=== PATIENT | male | born 1985 | race Caucasian/White ===

== ENCOUNTER 2017-04-05 19:15 | Inpatient (IN) | payer OTHER ==
[2017-04-05 20:12] VITALS: BMI 29.2
--- NOTE | 2017-04-05 21:38 | HP ---
CIWA Score - CIWA Score Nausea/Vomitin-Mild Nausea/No Vomiting Muscle Tremors: 4-Moderate,w/Arms Extend Anxiety: 4-Mod. Anxious/Guarded Agitation: 4-Moderately Restless Paroxysmal Sweats: 1-Minimal Palms Moist Orientation: 0-Oriented Tacttile Disturbances: 0-None Auditory Disturbances: 0-None Visual Disturbances: 0-None Headache: 0-None Present CIWA-Ar Total Score: 14 Admission ROS S - HPI Chief Complaint: withdrawal sx Allergies/Adverse Reactions: Allergies Allergy/AdvReac Type Severity Reaction Status Date / Time No Known Allergies Allergy Verified 08/08/14 14:17 History of Present Illness: 31 years old male with long history of xanax nicotine cocaine dependence methadone 60 mg po daily has depression and anxiety is admitted to detox Exam Limitations: No Limitations - Ebola screening Have you traveled outside of the country in the last 21 days: No Have you had contact with anyone from an Ebola affected area: No Have you been sick,other than usual withdrawal symptoms: No Do you have a fever: No - Review of Systems Constitutional: Changes in sleep, Weight Stable EENT: reports: No Symptoms Reported Respiratory: reports: No Symptoms reported Cardiac: reports: No Symptoms Reported GI: reports: Nausea, Poor Fluid Intake, Abdominal cramping : reports: No Symptoms Reported Musculoskeletal: reports: No Symptoms Reported Integumentary: reports: No Symptoms Reported Neuro: reports: Seizure (01/2017 xanax withdrawal related), Tremors Endocrine: reports: No Symptoms Reported Hematology: reports: No Symptoms Reported Psychiatric: reports: Judgement Intact, Orientated x3, Anxious, Depressed Other Systems: Reviewed and Negative Patient History - Patient Medical History Hx Anemia: No Hx Asthma: No Hx Chronic Obstructive Pulmonary Disease (COPD): No Hx Cancer: No Hx Cardiac Disorders: Yes (COCAINE RELATED SC 1 MONTH AGO) Hx Congestive Heart Failure: No Hx Hypertension: No Hx Hypercholesterolemia: No Hx Pacemaker: No HX Cerebrovascular Accident: No Hx Seizures: Yes (01/2017) Hx Dementia: No Hx Diabetes: No Hx Gastrointestinal Disorders: No Hx Liver Disease: No Hx Genitourinary Disorders: No Hx Sexually Transmitted Disorders: No Hx Renal Disease (ESRD): No Hx Thyroid Disease: No Hx Human Immunodeficiency Virus (HIV): No Hx Hepatitis C: No Hx Depression: Yes Hx Suicide Attempt: No Hx Bipolar Disorder: No Hx Schizophrenia: No - Patient Surgical History Past Surgical History: No Hx Neurologic Surgery: No Hx Cataract Extraction: No Hx Cardiac Surgery: No Hx Lung Surgery: No Hx Breast Surgery: No Hx Breast Biopsy: No Hx Abdominal Surgery: No Hx Appendectomy: No Hx Cholecystectomy: No Hx Genitourinary Surgery: No Hx Orthopedic Surgery: No - PPD History Previous Implant?: Yes Documented Results: Negative w/proof Implanted On Prior [facility] Admission?: Yes Date: 08/10/14 PPD to be Administered?: Yes - Smoking Cessation Smoking history: Current every day smoker Have you smoked in the past 12 months: No Aproximately how many cigarettes per day: 20 Cigars Per Day: 0 Hx Chewing Tobacco Use: No Initiated information on smoking cessation: Yes 'Breaking Loose' booklet given: 04/05/17 - Substance & Tx. History Hx Alcohol Use: No Hx Substance Use: Yes Substance Use Type: Cocaine, Heroin, Tranquilizers Hx Substance Use Treatment: Yes (12/2016 [facility]) - Substances Abused Alprazolam (Xanax) Route: Oral Frequency: Daily Amount used: 20 mg Age of first use: 20 Date of Last Use: 04/04/17 Benzodiazepine (Klonopin) Route: Oral Frequency: 1-3 times last 30 days Amount used: 30 mg Age of first use: 17 Date of Last Use: 04/02/17 Family Disease History - Family Disease History Family History: Denies Admission Physical Exam S - Vital Signs Vital Signs: Vital Signs - 24 hr 04/05/17 20:09 Temperature 98.0 F Pulse Rate 78 Respiratory 18 Rate Blood Pressure 117/70 - Physical General Appearance: Yes: Nourished, Appropriately Dressed, Mild Distress, Tremorous, Irritable, Sweating, Anxious HEENTM: Yes: Hearing grossly Normal, Normal ENT Inspection, Normocephalic, Normal Voice Respiratory: Yes: Chest Non-Tender, Lungs Clear, Normal Breath Sounds, No Respiratory Distress, No Accessory Muscle Use Neck: Yes: Supple, Trachea in good position Breast: Yes: Breasts Symetrical Cardiology: Yes: Regular Rhythm, Regular Rate, S1, S2 Abdominal: Yes: Non Tender, Soft, Decreased BS Genitourinary: Yes: Within Normal Limits Back: Yes: Normal Inspection Musculoskeletal: Yes: full range of Motion, Gait Steady Extremities: Yes: Normal Inspection, Normal Range of Motion, Non-Tender, Tremors 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: Fully Oriented, Alert, Motor Strength 5/5, Normal Response, Depressed Affect Integumentary: Yes: Warm Lymphatic: Yes: Within Normal Limits - Diagnostic (1) Alcohol dependence with uncomplicated withdrawal Current Visit: Yes Status: Acute (2) Methadone maintenance therapy patient Current Visit: Yes Status: Chronic Comment: 60 mg po daily verification pending (3) Nicotine dependence Current Visit: Yes Status: Acute Qualifiers: Nicotine product type: cigarettes Substance use status: in withdrawal Qualified Code(s): F17.213 - Nicotine dependence, cigarettes, with withdrawal (4) Atypical toothache Current Visit: Yes Status: Acute Comment: augmentin bid x 6 days (5) Prophylactic measure Current Visit: Yes Status: Acute Comment: unprotected sex truvada po od x 27 days isentress bid x 27 days Cleared for Admission [facility] - Detox or Rehab [facility] Level of Care: Medically Managed Detox Regimen/Protocol: Valium [facility] Breath Alcohol Content Breath Alcohol Content: 0 Urine Drug Screen - Results Drug Screen Negative: No Urine Drug Screen Results: CAROLYN-Cocaine, OPI-Opiates, BZO-Benzodiazepines, MTD- Methadone
[2017-04-05] MEDS ORDERED: guaiFENesin/D-METHORPHAN HB 10 ML UNIT-DOSE CUPS PO PRN (21:48)
[2017-04-05] MEDS ORDERED: MAG HYDROX/AL HYDROX/SIMETH 30 ML UNIT-DOSE CUP PO PRN (21:48)
[2017-04-05] MEDS ORDERED: P-EPHED 60MG/TRIPROLIDI 2.5MG TABLET PO PRN (21:48)
[2017-04-05] MEDS ORDERED: IBUPROFEN 400 MG TABLET (FP) PO PRN (21:48)
[2017-04-05] MEDS ORDERED: MAGNESIUM CITRATE 300 ML BOTTLE PO PRN (21:48)
[2017-04-05] MEDS ORDERED: diazePAM 5 MG TABLET PO ONE (21:48)
[2017-04-05] MEDS ORDERED: MENTHOL/PHENOL 1 EACH UD MM PRN (21:48)
[2017-04-05] MEDS ORDERED: ACETAMINOPHEN 325 MG TABLET (FP) PO PRN (21:48)
[2017-04-05] MEDS ORDERED: LOPERAMIDE HCL 2 MG CAPSULE PO PRN (21:48)
[2017-04-05] MEDS ORDERED: MAGNESIUM HYDROX 2400MG/30ML ORAL SUSPENSION 30 ML CUP PO PRN (21:48)
[2017-04-05] MEDS ORDERED: BACLOFEN 10 MG TABLET (FP) PO PRN (21:57)
[2017-04-06] MEDS: diazePAM 5 MG TABLET PO SCH ×4 (01:12→22:25)
[2017-04-06] MEDS: diazePAM 5 MG TABLET PO PRN ×4 (01:21→20:36)
[2017-04-06] MEDS: NICOTINE POLACRILEX 4 MG GUM BC PRN ×6 (01:21→21:43)
[2017-04-06] MEDS: THIAMINE HCL 100 MG TABLET (FP) PO SCH ×2 (01:30→22:25)
[2017-04-06] MEDS ORDERED: METHADONE HCL 10 MG TABLET PO SCH (08:45)
[2017-04-06] MEDS ORDERED: METHADONE HCL 10 MG TABLET ONE (09:26)
[2017-04-06] MEDS ORDERED: METHADONE HCL 40 MG DISPERSABLE TABLET ONE (09:26)
[2017-04-06] MEDS: METHADONE 40 MG, METHADONE 20 MG PO SCH (09:27)
[2017-04-06] MEDS: ESCITALOPRAM OXALATE 10 MG TABLET (FP) PO SCH ×2 (10:10→10:29)
[2017-04-06] MEDS: PRENATAL VITAMINS W/ FOLIC ACID TABLET (FP) PO SCH (10:10)
[2017-04-06] MEDS: PATIENT'S OWN MEDICATION (NON-FORMULARY) (Amoxicillin/Potassium Clav [Augmentin 875-125 Ta PO SCH ×2 (10:10→22:25)
[2017-04-06] MEDS: NICOTINE 21 MG/24 HOURS TOPICAL PATCH TD SCH (10:11)
[2017-04-06] MEDS: PATIENT'S OWN MEDICATION (NON-FORMULARY) (Emtricitabine/Tenofovir (Tdf) [Truvada 200 Mg-30 PO SCH (10:11)
[2017-04-06 10:20] LABS: MCH 30.1 pg (25.7-33.7); MCHC 33.5 g/dl (32.0-35.9); MEAN CELL VOLUME 89.9 fl (80-96); MEAN PLT VOLUME 10.4 fl (7.5-11.1); PLATELET COUNT 119 K/MM3 (134-434); RDW 12.3 % (11.9-15.9); WHITE BLOOD COUNT 2.7 K/mm3 (4.0-10.0)
[2017-04-06 11:10] LABS: ALBUMIN 3.3 g/dl (3.4-5.0); ALK PHOS 61 U/L (45-117); ANION GAP 6 (8-16); BILIRUBIN,TOTAL 0.2 mg/dL (0.2-1.0); CO2 30 mmol/L (21-32); CREATININE 1.1 mg/dL (0.7-1.3); GLUCOSE,RANDOM 97 mg/dL (74-106); SGOT/AST 19 U/L (15-37); SGPT/ALT 29 U/L (12-78); TOT PROT 6.1 g/dl (6.4-8.2)
--- NOTE | 2017-04-06 12:38 | EKG ---
Test Reason : Blood Pressure : / mmHG Vent. Rate : 057 BPM Atrial Rate : 057 BPM P-R Int : 152 ms QRS Dur : 084 ms QT Int : 464 ms P-R-T Axes : 060 016 022 degrees QTc Int : 451 ms SINUS BRADYCARDIA OTHERWISE NORMAL ECG NO PREVIOUS ECGS AVAILABLE Confirmed by GUILHERME MENDES MD ([id number]) on 04/06/2017 12:38:07 PM Referred By: Confirmed By:GUILHERME MENDES MD
--- NOTE | 2017-04-06 13:20 | CONSULT ---
[facility] Psychiatric Consult - Data Date of interview: 04/06/17 Admission source: [facility] Identifying data: This is 31 years old male with history of PTSD, WITH no psychiatric hospitalization history intoxicated with: Alcohol, Methadone and Nicotine Substance Abuse History: - Smoking Cessation. Smoking history: Current every day smoker. Have you smoked in the past 12 months: No. Aproximately how many cigarettes per day: 20. Cigars Per Day: 0. Hx Chewing Tobacco Use: No. Initiated information on smoking cessation: Yes. 'Breaking Loose' booklet given : 04/05/17. - Substance & Tx. History. Hx Alcohol Use: No. Hx Substance Use: Yes. Substance Use Type: Cocaine, Heroin, Tranquilizers. Hx Substance Use Treatment: Yes (12/2016 [facility]). - Substances Abused. Alprazolam (Xanax). Route: Oral. Frequency: Daily. Amount used: 20 mg. Age of first use: 20. Date of Last Use: 04/04/17. Benzodiazepine (Klonopin). Route: Oral. Frequency: 1-3 times last 30 days. Amount used: 30 mg. Age of first use: 17. Date of Last Use: Medical History: Denies significant medical problem Psychiatric History: Patient reports history of depression and anxiety, PTSD, reports taking prior to admission: Seroquel 150mg po qhs. Lexapro 10mg poqd Physical/Sexual Abuse/Trauma History: Denies Additional Comment: Seroquel 150mg po qhs. Lexapro 10mg poqd Mental Status Exam - Mental Status Exam Alert and Oriented to: Person Cognitive Function: Fair Patient Appearance: Unkempt Mood: Sad Affect: Flat Patient Behavior: Sedated Speech Pattern: Delayed Voice Loudness: Mildly Soft/Quiet Thought Process: Circumstantial Thought Disorder: Being Controlled Hallucinations: Denies Suicidal Ideation: Denies Homicidal Ideation: Denies Insight/Judgement: Fair Sleep: Difficulty falling asleep Appetite: Fair Muscle strength/Tone: Moderate Hypotonicity Gait/Station: Other Additional Comments: Seroquel 150mg po qhs. Lexapro 10mg poqd Psychiatric Findings - Problem List ([place] 1, 2,3) (1) Alcohol dependence with uncomplicated withdrawal Current Visit: Yes Status: Acute (2) Nicotine dependence Current Visit: Yes Status: Acute Qualifiers: Nicotine product type: cigarettes Substance use status: in withdrawal Qualified Code(s): F17.213 - Nicotine dependence, cigarettes, with withdrawal (3) Methadone maintenance therapy patient Current Visit: Yes Status: Chronic Comment: 60 mg po daily verification pending (4) Alcohol dependence Current Visit: No Status: Acute (5) Mood disorder Current Visit: No Status: Acute (6) Opioid dependence Current Visit: No Status: Acute (7) PTSD (post-traumatic stress disorder) Current Visit: No Status: Acute - Initial Treatment Plan Initial Treatment Plan: Seroquel 150mg po qhs. Lexapro 10mg poqd
--- NOTE | 2017-04-06 16:29 | PN ---
S CIWA - CIWA Score Nausea/Vomitin-No Nausea/No Vomiting Muscle Tremors: 4-Moderate,w/Arms Extend Anxiety: 5 Agitation: 4-Moderately Restless Paroxysmal Sweats: 3 Orientation: 0-Oriented Tacttile Disturbances: 2-Mild Itch/Numbness/Burn Auditory Disturbances: 0-None Visual Disturbances: 1-Very Mild Sensitivity Headache: 2-Mild CIWA-Ar Total Score: 21 [facility] Progress Note (SOAP) Subjective: THIS NOTE WRITTEN TO PERTAIN TO DAILY AM ROUNDS ASSESSMENT: Tremors, Anxious, H/A, Body Aches, Sweating, Fatigue. Objective: PT. A & O X 3, OBSERVED AMBULATING ON UNIT. NO ACUTE DISTRESS. 04/06/17 16:25 Vital Signs Temperature 95.7 F L 04/06/17 15:10 Pulse Rate 101 H 04/06/17 15:10 Respiratory Rate 20 04/06/17 15:10 Blood Pressure 145/78 04/06/17 15:10 O2 Sat by Pulse Oximetry (%) Laboratory Tests 04/06/17 04/06/17 04/06/17 04:00 04:00 04:00 WBC 2.7 L D RBC 4.61 Hgb 13.9 Hct 41.4 MCV 89.9 MCH 30.1 MCHC 33.5 RDW 12.3 Plt Count 119 L MPV 10.4 Sodium 141 Potassium 3.8 Chloride 105 Carbon Dioxide 30 Anion Gap 6 L BUN 21 H D Creatinine 1.1 D Creat Clearance w eGFR > 60 Random Glucose 97 Calcium 8.0 L Total Bilirubin 0.2 D AST 19 D ALT 29 D Alkaline Phosphatase 61 Total Protein 6.1 L Albumin 3.3 L RPR Titer Nonreactive LABS NOTED. UA RESULTS PENDING. 04/06/17 16:28 Assessment: 04/06/17 16:26 WITHDRAWAL SYMPTOMS. LEUKONPENIA. 04/06/17 16:28 Plan: CONTINUE DETOX. INCREASE DAILY PO FLUID INTAKE. REPEAT CBC ON 04/08/2017 FOR LOW WBC LEVEL ON ADMISSION.
--- NOTE | 2017-04-06 16:40 | PN ---
[facility] Progress Note Note: Received report that Patient approached [facility] (ambulating on his own) , stating that he fell in his room near the side of his bed. When interviewing patient, he denies LOC after the fall, but was unable to give clear description of how he fell and also of whether he fell against the floor or the wall near his bed. Patient reports that he hit his head and bit his tongue during fall. 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 [place]. Small erythematous area not on top of patient's head in scalp, near anterior hairline (right side). No swelling, bleeding or unusual discharge noted at affected site. At time of interview, patient reports that bleeding on tongue has since ceased. Tip of tongue noted to be erythematous; however, no bleeding noted at site. No other wounds noted on patient's head. Patient initially reports H/A " in the middle of his head." Patient able to ambulate unassisted. VS: BP: 145/78 ; P: 101; T: 95.7; RR: 20. [facility] Fall Protocol # 1 Implemented. Order put in for patient to go to [facility] ER for CT Scan of Head and for further evaluation of head. 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 Patient Signed Refusal Form, noting that his H/A has since resolved. Patient advised to gargle Warm water with salt for wound on tongue. Will Continue to Monitor. Guy Man NP
[2017-04-06] MEDS: PATIENT'S OWN MEDICATION (NON-FORMULARY) (Raltegravir [Isentress] 400 MG) PO SCH (22:26)
[2017-04-07] MEDS: diazePAM 5 MG TABLET PO PRN ×5 (01:38→20:56)
[2017-04-07] MEDS: NICOTINE POLACRILEX 4 MG GUM BC PRN ×5 (01:41→20:58)
[2017-04-07] MEDS ORDERED: METHADONE HCL 10 MG TABLET ONE (03:30)
[2017-04-07] MEDS ORDERED: METHADONE HCL 40 MG DISPERSABLE TABLET ONE (03:31)
[2017-04-07] MEDS: METHADONE 40 MG, METHADONE 20 MG PO SCH (06:03)
[2017-04-07] MEDS: PATIENT'S OWN MEDICATION (NON-FORMULARY) (Raltegravir [Isentress] 400 MG) PO SCH ×2 (10:23→22:25)
[2017-04-07] MEDS: PATIENT'S OWN MEDICATION (NON-FORMULARY) (Emtricitabine/Tenofovir (Tdf) [Truvada 200 Mg-30 PO SCH (10:23)
[2017-04-07] MEDS: diazePAM 5 MG TABLET PO SCH ×2 (10:24→22:23)
[2017-04-07] MEDS: ESCITALOPRAM OXALATE 10 MG TABLET (FP) PO SCH ×2 (10:24→10:28)
[2017-04-07] MEDS: PATIENT'S OWN MEDICATION (NON-FORMULARY) (Amoxicillin/Potassium Clav [Augmentin 875-125 Ta PO SCH ×2 (10:24→22:23)
[2017-04-07] MEDS: PRENATAL VITAMINS W/ FOLIC ACID TABLET (FP) PO SCH (10:24)
[2017-04-07] MEDS: NICOTINE 21 MG/24 HOURS TOPICAL PATCH TD SCH (10:25)
--- NOTE | 2017-04-07 15:02 | PN ---
S CIWA - CIWA Score Nausea/Vomitin Muscle Tremors: 3 Anxiety: 5 Agitation: 3 Paroxysmal Sweats: 3 Orientation: 0-Oriented Tacttile Disturbances: 2-Mild Itch/Numbness/Burn Auditory Disturbances: 0-None Visual Disturbances: 0-None Headache: 0-None Present CIWA-Ar Total Score: 19 [facility] Progress Note (SOAP) Subjective: Anxious, Body Aches, Sweating, Nausea, Tremors. Objective: PT. A & O X 3, OBSERVED AMBULATING ON UNIT. NO ACUTE DISTRESS. 04/07/17 15:00 Vital Signs Temperature 96.7 F L 04/07/17 13:44 Pulse Rate 56 L 04/07/17 13:44 Respiratory Rate 17 04/07/17 13:44 Blood Pressure 118/73 04/07/17 13:44 O2 Sat by Pulse Oximetry (%) Laboratory Tests 04/06/17 04/06/17 04/06/17 04:00 04:00 04:00 WBC 2.7 L D RBC 4.61 Hgb 13.9 Hct 41.4 MCV 89.9 MCH 30.1 MCHC 33.5 RDW 12.3 Plt Count 119 L MPV 10.4 Sodium 141 Potassium 3.8 Chloride 105 Carbon Dioxide 30 Anion Gap 6 L BUN 21 H D Creatinine 1.1 D Creat Clearance w eGFR > 60 Random Glucose 97 Calcium 8.0 L Total Bilirubin 0.2 D AST 19 D ALT 29 D Alkaline Phosphatase 61 Total Protein 6.1 L Albumin 3.3 L RPR Titer Nonreactive LABS NOTED. UA RESULTS PENDING. 04/07/17 15:02 Assessment: 04/07/17 15:01 WITHDRAWAL SYMPTOMS. Plan: CONTINUE DETOX. INCREASE DAILY PO FLUID INTAKE.
[2017-04-07] MEDS: THIAMINE HCL 100 MG TABLET (FP) PO SCH (22:29)
[2017-04-08] MEDS: diazePAM 5 MG TABLET PO PRN ×4 (00:56→17:31)
[2017-04-08] MEDS ORDERED: METHADONE HCL 10 MG TABLET ONE (04:31)
[2017-04-08] MEDS ORDERED: METHADONE HCL 40 MG DISPERSABLE TABLET ONE (04:32)
[2017-04-08] MEDS: METHADONE 40 MG, METHADONE 20 MG PO SCH (05:20)
[2017-04-08] MEDS: NICOTINE POLACRILEX 4 MG GUM BC PRN ×4 (05:23→22:12)
[2017-04-08] MEDS: PATIENT'S OWN MEDICATION (NON-FORMULARY) (Emtricitabine/Tenofovir (Tdf) [Truvada 200 Mg-30 PO SCH (10:12)
[2017-04-08] MEDS: ESCITALOPRAM OXALATE 10 MG TABLET (FP) PO SCH (10:12)
[2017-04-08] MEDS: PATIENT'S OWN MEDICATION (NON-FORMULARY) (Amoxicillin/Potassium Clav [Augmentin 875-125 Ta PO SCH ×2 (10:12→22:11)
[2017-04-08] MEDS: PRENATAL VITAMINS W/ FOLIC ACID TABLET (FP) PO SCH (10:13)
[2017-04-08] MEDS: diazePAM 5 MG TABLET PO SCH ×2 (10:13→22:11)
[2017-04-08] MEDS: PATIENT'S OWN MEDICATION (NON-FORMULARY) (Raltegravir [Isentress] 400 MG) PO SCH ×2 (10:13→22:11)
[2017-04-08 10:33] LABS: URINE APPEARANCE CLEAR; URINE BILIRUBIN NEGATIVE (NEGATIVE); URINE BLOOD NEGATIVE (NEGATIVE); URINE COLOR STRAW; URINE GLUCOSE (UA) NEGATIVE (NEGATIVE); URINE KETONE NEGATIVE (NEGATIVE); URINE NITRITE NEGATIVE (NEGATIVE); URINE PROTEIN NEGATIVE (NEGATIVE); URINE UROBILINOGEN NEGATIVE mg/dL (0.2-1.0)
[2017-04-08] MEDS: NICOTINE 21 MG/24 HOURS TOPICAL PATCH TD SCH (11:15)
--- NOTE | 2017-04-08 13:24 | PN ---
[facility] Progress Note (SOAP) Subjective: Tremors, Anxious, Body Aches. Objective: PT. A & O X 3, OBSERVED AMBULATING ON UNIT. NO ACUTE DISTRESS. 04/08/17 13:22 Vital Signs Temperature 96.5 F L 04/08/17 09:49 Pulse Rate 56 L 04/08/17 09:49 Respiratory Rate 18 04/08/17 09:49 Blood Pressure 109/64 04/08/17 09:49 O2 Sat by Pulse Oximetry (%) Laboratory Tests 04/06/17 04/06/17 04/06/17 04:00 04:00 04:00 WBC 2.7 L D RBC 4.61 Hgb 13.9 Hct 41.4 MCV 89.9 MCH 30.1 MCHC 33.5 RDW 12.3 Plt Count 119 L MPV 10.4 Sodium 141 Potassium 3.8 Chloride 105 Carbon Dioxide 30 Anion Gap 6 L BUN 21 H D Creatinine 1.1 D Creat Clearance w eGFR > 60 Random Glucose 97 Calcium 8.0 L Total Bilirubin 0.2 D AST 19 D ALT 29 D Alkaline Phosphatase 61 Total Protein 6.1 L Albumin 3.3 L Urine Color Urine Appearance Urine pH Ur Specific [place] Urine Protein Urine Glucose (UA) Urine Ketones Urine Blood Urine Nitrite Urine Bilirubin Urine Urobilinogen RPR Titer Nonreactive 04/08/17 07:40 WBC RBC Hgb Hct MCV MCH MCHC RDW Plt Count MPV Sodium Potassium Chloride Carbon Dioxide Anion Gap BUN Creatinine Creat Clearance w eGFR Random Glucose Calcium Total Bilirubin AST ALT Alkaline Phosphatase Total Protein Albumin Urine Color Straw Urine Appearance Clear Urine pH 7.0 Ur Specific [place] 1.011 Urine Protein Negative Urine Glucose (UA) Negative Urine Ketones Negative Urine Blood Negative Urine Nitrite Negative Urine Bilirubin Negative Urine Urobilinogen Negative RPR Titer LABS NOTED. Assessment: 04/08/17 13:22 WITHDRAWAL SYMPTOMS. Plan: CONTINUE DETOX. INCREASE DAILY PO FLUID INTAKE.
[2017-04-08 16:56] LABS: URINE LEUK ESTERASE Negative (NEGATIVE)
[2017-04-08] MEDS: THIAMINE HCL 100 MG TABLET (FP) PO SCH (22:12)
[2017-04-09] MEDS ORDERED: METHADONE HCL 10 MG TABLET ONE (03:30)
[2017-04-09] MEDS ORDERED: METHADONE HCL 40 MG DISPERSABLE TABLET ONE (03:30)
[2017-04-09] MEDS: METHADONE 40 MG, METHADONE 20 MG PO SCH (05:40)
[2017-04-09 06:47] VITALS: BP 109/71; PULSE 56; TEMP 98.2
[2017-04-09] MEDS ORDERED: diazePAM 5 MG TABLET PO SCH (10:00)
--- NOTE | 2017-04-09 13:29 | DS ---
[facility] Detox Discharge Summary Admission Date: 04/05/17 Discharge Date: 04/09/17 - History Present History: Cocaine Dependence, Opioid Dependence, Sedative Dependence, MMTP Additional Comments: Patient reported having withdrawal sxs of hot flashes, sweat, anxious and requesting valium stating he received his last dose of valium 5mg last night. Personalization Specialist offered vistaril 50mg PO PRN but patient refused stating that he will just continue using drugs when he gets on the street or will get some benadryl. Patient was angry and agitated and refused to listen to ad writer. Pertinent Past History: Acute NC secondary to cocaine dependence Seizure disorder - Physical Exam Results Vital Signs: Vital Signs Temperature 98.2 F 04/09/17 06:46 Pulse Rate 56 L 04/09/17 06:46 Respiratory Rate 18 04/09/17 06:46 Blood Pressure 109/71 04/09/17 06:46 O2 Sat by Pulse Oximetry (%) Pertinent Admission Physical Exam Findings: Withdrawal symptoms Laboratory Tests 04/06/17 04/06/17 04/06/17 04:00 04:00 04:00 WBC 2.7 L D RBC 4.61 Hgb 13.9 Hct 41.4 MCV 89.9 MCH 30.1 MCHC 33.5 RDW 12.3 Plt Count 119 L MPV 10.4 Sodium 141 Potassium 3.8 Chloride 105 Carbon Dioxide 30 Anion Gap 6 L BUN 21 H D Creatinine 1.1 D Creat Clearance w eGFR > 60 Random Glucose 97 Calcium 8.0 L Total Bilirubin 0.2 D AST 19 D ALT 29 D Alkaline Phosphatase 61 Total Protein 6.1 L Albumin 3.3 L Urine Color Urine Appearance Urine pH Ur Specific [place] Urine Protein Urine Glucose (UA) Urine Ketones Urine Blood Urine Nitrite Urine Bilirubin Urine Urobilinogen Ur Leukocyte Esterase RPR Titer Nonreactive 04/08/17 07:40 WBC RBC Hgb Hct MCV MCH MCHC RDW Plt Count MPV Sodium Potassium Chloride Carbon Dioxide Anion Gap BUN Creatinine Creat Clearance w eGFR Random Glucose Calcium Total Bilirubin AST ALT Alkaline Phosphatase Total Protein Albumin Urine Color Straw Urine Appearance Clear Urine pH 7.0 Ur Specific [place] 1.011 Urine Protein Negative Urine Glucose (UA) Negative Urine Ketones Negative Urine Blood Negative Urine Nitrite Negative Urine Bilirubin Negative Urine Urobilinogen Negative Ur Leukocyte Esterase Negative RPR Titer Labs noted: bun 21 (encouraged to drink lots of water) - Medication Discharge Medications: Ambulatory Orders Amoxicillin/Potassium Clav [Augmentin 875-125 Tablet] 1 each PO BID 04/05/17 Emtricitabine/Tenofovir (Tdf) [Truvada 200 mg-300 mg Tablet] 1 each PO DAILY Raltegravir [Isentress -] 400 mg PO BID 04/05/17 Escitalopram Oxalate [Lexapro -] 10 mg PO DAILY #30 tablet 04/06/17 Quetiapine Fumarate "Xr" [Seroquel XR] 150 mg PO HS@1999 #30 tablet 04/06/17 - Diagnosis (1) Nicotine dependence Status: Chronic Qualifiers: Nicotine product type: cigarettes Substance use status: in withdrawal Qualified Code(s): F17.213 - Nicotine dependence, cigarettes, with withdrawal (2) Methadone maintenance therapy patient Status: Chronic (3) Benzodiazepine dependence Status: Acute (4) Cocaine dependence Status: Chronic (5) Seizure Status: Chronic (6) Depression Status: Chronic (7) Acute NC Status: Acute (8) Opioid dependence Status: Chronic - AMA Did Patient Leave Against Medical Advice: No (F/U with PCP in 1-2 weeks)
== END 2017-04-09 09:20 | disposition home or self-care (01) | DRG 773 ==
LOC: YASAS 19:15 → Y3N 23:11
PROVIDERS: ADMIT Internal Medicine; ATTEND Internal Medicine
PROC: HZ2ZZZZ Detoxification Services for Substance Abuse Treatment (ICD-10-PCS; principal; 2017-04-05)
DX: F11.20 Opioid dependence, uncomplicated (principal); F13.20 Sedative, hypnotic or anxiolytic dependence, uncomplicated; F10.230 Alcohol dependence with withdrawal, uncomplicated; F14.20 Cocaine dependence, uncomplicated; F17.210 Nicotine dependence, cigarettes, uncomplicated; F32.9 Major depressive disorder, single episode, unspecified; F41.9 Anxiety disorder, unspecified; F39 Unspecified mood [affective] disorder; I21.9 Acute myocardial infarction, unspecified; Z77.21 Contact with and (suspected) exposure to potentially hazardous body fluids; Z59.0 Homelessness
CPT/HCPCS: 36415; 80053; 81003; 85027; 86593; 93005; 93010; J0475

== ENCOUNTER 2017-11-13 09:35 | Inpatient (IN) | payer OTHER ==
[2017-11-13 10:55] VITALS: BMI 30.1
--- NOTE | 2017-11-13 13:38 | HP ---
CIWA Score - CIWA Score Nausea/Vomitin-Mild Nausea/No Vomiting Muscle Tremors: 4-Moderate,w/Arms Extend Anxiety: 4-Mod. Anxious/Guarded Agitation: 4-Moderately Restless Paroxysmal Sweats: 1-Minimal Palms Moist Orientation: 0-Oriented Tacttile Disturbances: 1-Very Mild Itch/Numbness Auditory Disturbances: 0-None Visual Disturbances: 0-None Headache: 0-None Present CIWA-Ar Total Score: 15 Admission ROS S - HPI Chief Complaint: benzo withdrawal sx Allergies/Adverse Reactions: Allergies Allergy/AdvReac Type Severity Reaction Status Date / Time mushroom Allergy Severe Difficulty Verified 11/13/17 12:39 Breathing No Known Drug Allergies Allergy Verified 11/13/17 12:39 History of Present Illness: 32 years old male with long history of banzo and nicotine dependence has anxiety is admitted to detox Exam Limitations: No Limitations - Ebola screening Have you traveled outside of the country in the last 21 days: No (N) Have you had contact with anyone from an Ebola affected area: No Have you been sick,other than usual withdrawal symptoms: No Do you have a fever: No - Review of Systems Constitutional: Changes in sleep, Weight Stable EENT: reports: No Symptoms Reported Respiratory: reports: No Symptoms reported Cardiac: reports: No Symptoms Reported GI: reports: Nausea, Poor Fluid Intake, Abdominal cramping : reports: No Symptoms Reported Musculoskeletal: reports: No Symptoms Reported Integumentary: reports: Change in Color (both upper arms iv heroin) Neuro: reports: Seizure (seizure "few months ago" benzo withdrawal related), Tremors Endocrine: reports: No Symptoms Reported Hematology: reports: No Symptoms Reported Psychiatric: reports: Judgement Intact, Orientated x3, Anxious, Depressed Other Systems: Reviewed and Negative Patient History - Patient Medical History Hx Anemia: No Hx Asthma: No Hx Chronic Obstructive Pulmonary Disease (COPD): No Hx Cancer: No Hx Cardiac Disorders: No Hx Congestive Heart Failure: No Hx Hypertension: No Hx Hypercholesterolemia: No Hx Pacemaker: No HX Cerebrovascular Accident: No Hx Seizures: Yes (drug related-last episode was in 08/2017) Hx Dementia: No Hx Diabetes: No Hx Gastrointestinal Disorders: No Hx Liver Disease: No Hx Genitourinary Disorders: No Hx Sexually Transmitted Disorders: No Hx Renal Disease (ESRD): No Hx Thyroid Disease: No Hx Human Immunodeficiency Virus (HIV): No Hx Hepatitis C: No Hx Depression: Yes Hx Suicide Attempt: No Hx Bipolar Disorder: No Hx Schizophrenia: No - Patient Surgical History Past Surgical History: No Hx Neurologic Surgery: No Hx Cataract Extraction: No Hx Cardiac Surgery: No Hx Lung Surgery: No Hx Breast Surgery: No Hx Breast Biopsy: No Hx Abdominal Surgery: No Hx Appendectomy: No Hx Cholecystectomy: No Hx Genitourinary Surgery: No Hx Orthopedic Surgery: No - PPD History Previous Implant?: Yes Documented Results: Negative w/proof Implanted On Prior R Admission?: Yes Date: 07/13/17 Results: 0 mm PPD to be Administered?: No - Smoking Cessation Smoking history: Current every day smoker Have you smoked in the past 12 months: Yes Aproximately how many cigarettes per day: 20 If you are a former smoker, when did you quit?: 14 MONTHS AGO. Cigars Per Day: 0 Hx Chewing Tobacco Use: No Initiated information on smoking cessation: Yes 'Breaking Loose' booklet given: 11/13/17 - Substance & Tx. History Hx Alcohol Use: Yes Hx Substance Use: Yes Substance Use Type: Alcohol, Cocaine, Heroin, Opiates, Tranquilizers Hx Substance Use Treatment: Yes (08/2017 [facility] - Substances Abused Heroin Route: Injection Frequency: Daily Amount used: 5 bags Age of first use: 20 Date of Last Use: 11/13/17 Cocaine Route: Inhalation Frequency: 1-2 times per week Amount used: $40 Age of first use: 20 Date of Last Use: 11/11/17 Xanax or Klonopin Route: Oral Frequency: Daily Amount used: 8-12 tabs. (2 mg.)/15 tabs. (2 mg.) Age of first use: 29 Date of Last Use: 11/13/17 Alcohol-beer Route: Oral Frequency: 1-2 times per week Amount used: 2-3 (12 oz.) Age of first use: 13 Date of Last Use: 11/10/17 Family Disease History - Family Disease History Family Disease History: Other: Father (alive and well), Mother (alive, and well) Other Family History: only child Admission Physical Exam BHS - Vital Signs Vital Signs: Vital Signs - 24 hr 11/13/17 10:52 Temperature 98.2 F Pulse Rate 61 Respiratory 20 Rate Blood Pressure 132/74 - Physical General Appearance: Yes: Appropriately Dressed, Mild Distress, Tremorous, Irritable, Sweating, Anxious HEENTM: Yes: Normal Voice Respiratory: Yes: Chest Non-Tender, Lungs Clear, Normal Breath Sounds, No Respiratory Distress, No Accessory Muscle Use Neck: Yes: Supple, Trachea in good position Breast: Yes: Breasts Symetrical, No Discharge Cardiology: Yes: Regular Rhythm, Regular Rate, S1, S2 Abdominal: Yes: Non Tender, Flat, Soft Genitourinary: Yes: Within Normal Limits Back: Yes: Normal Inspection Musculoskeletal: Yes: full range of Motion, Gait Steady, Back pain, Muscle Pain Extremities: Yes: Normal Inspection (arms iv heroin), Normal Range of Motion, Non-Tender, Tremors 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: Fully Oriented, Alert, Motor Strength 5/5, Normal Response, Depressed Affect Integumentary: Yes: Warm, Track Babb Lymphatic: Yes: Within Normal Limits - Diagnostic (1) Anxiety and depression Current Visit: Yes Status: Suspected (2) Nicotine dependence Current Visit: Yes Status: Acute Qualifiers: Nicotine product type: cigarettes Substance use status: in withdrawal Qualified Code(s): F17.213 - Nicotine dependence, cigarettes, with withdrawal (3) Cocaine dependence Current Visit: Yes Status: Chronic Qualifiers: Substance use status: uncomplicated Qualified Code(s): F14.20 - Cocaine dependence, uncomplicated (4) Sedative, hypnotic or anxiolytic dependence with withdrawal, uncomplicated Current Visit: Yes Status: Acute (5) Methadone maintenance therapy patient Current Visit: Yes Status: Chronic Comment: 130 mg po daily last dose verified Cleared for Admission [facility] - Detox or Rehab [facility] Level of Care: Medically Managed Detox Regimen/Protocol: Valium [facility] Breath Alcohol Content Breath Alcohol Content: 0 Urine Drug Screen - Results Drug Screen Negative: No Urine Drug Screen Results: CAROLYN-Cocaine, OPI-Opiates, BAR-Barbiturates, BZO- Benzodiazepines, MTD-Methadone
[2017-11-13] MEDS ORDERED: MAG HYDROX/AL HYDROX/SIMETH 30 ML UNIT-DOSE CUP PO PRN (13:42)
[2017-11-13] MEDS ORDERED: LOPERAMIDE HCL 2 MG CAPSULE PO PRN (13:42)
[2017-11-13] MEDS ORDERED: ACETAMINOPHEN 325 MG TABLET (FP) PO PRN (13:42)
[2017-11-13] MEDS ORDERED: P-EPHED 60MG/TRIPROLIDI 2.5MG TABLET PO PRN (13:42)
[2017-11-13] MEDS ORDERED: MENTHOL/PHENOL 1 EACH UD MM PRN (13:42)
[2017-11-13] MEDS ORDERED: IBUPROFEN 400 MG TABLET (FP) PO PRN (13:42)
[2017-11-13] MEDS ORDERED: MAGNESIUM HYDROX 2400MG/30ML ORAL SUSPENSION 30 ML CUP PO PRN (13:42)
[2017-11-13] MEDS ORDERED: MAGNESIUM CITRATE 300 ML BOTTLE PO PRN (13:42)
[2017-11-13] MEDS ORDERED: guaiFENesin/D-METHORPHAN HB 10 ML UNIT-DOSE CUPS PO PRN (13:42)
--- NOTE | 2017-11-13 14:41 | CONSULT ---
[facility] Psychiatric Consult - Data Date of interview: 11/13/17 Admission source: [facility] Identifying data: This is 32 years old male, single, unemployed, living with family, on MMTP, with no psychiatric hospitalization history, with long history of Benzo, Cocaine, Opioids, Alcohol, Nicotine and nicotine dependence has anxiety and withdrawal symptoms, seeking for detox. Substance Abuse History: Smoking Cessation. Smoking history: Current every day smoker. Have you smoked in the past 12 months: Yes. Aproximately how many cigarettes per day: 20. If you are a former smoker, when did you quit?: 14 MONTHS AGO. Cigars Per Day: 0. Hx Chewing Tobacco Use: No. Initiated information on smoking cessation: Yes. 'Breaking Loose' booklet given: . - Substance & Tx. History. Hx Alcohol Use: Yes. Hx Substance Use: Yes. Substance Use Type: Alcohol, Cocaine, Heroin, Opiates, Tranquilizers. Hx Substance Use Treatment: Yes (08/2017 [facility]). - Substances Abused. Heroin. Route: Injection. Frequency: Daily. Amount used: 5 bags. Age of first use: 20. Date of Last Use: 11/13/17. Cocaine. Route: Inhalation. Frequency: 1-2 times per week. Amount used: $40. Age of first use: 20. Date of Last Use: 11/11/17. Xanax or Klonopin. Route: Oral. Frequency: Daily. Amount used: 8-12 tabs. (2 mg.)/15 tabs. (2 mg.). Age of first use: 29. Date of Last Use: 11/13/17. Alcohol-beer. Route: Oral. Frequency: 1-2 times per week. Amount used: 2-3 (12 oz.). Age of first use: 13. Date of Last Use: 11/10/17 Medical History: MMTP 130 mg per day, History of acute [place], Seizure history, Psychiatric History: Patient reports long history of depression, denies psychiatric hospitalization history, denies suicidal, homicidal history, no0 medicatione taking prior to admission. Physical/Sexual Abuse/Trauma History: Denies Additional Comment: Observation. Detox Unit Care Protocol. Mental Status Exam - Mental Status Exam Alert and Oriented to: Place, Person Cognitive Function: Fair Patient Appearance: Unkempt Mood: Anxious Affect: Mood Congruent Patient Behavior: Cooperative Speech Pattern: Delayed Voice Loudness: Mildly Soft/Quiet Thought Process: Goal Oriented Thought Disorder: Being Controlled Hallucinations: Denies Suicidal Ideation: Denies Homicidal Ideation: Denies Insight/Judgement: Fair Sleep: Difficulty falling asleep Appetite: Weight gain Muscle strength/Tone: Normal Gait/Station: Shuffling Additional Comments: Observation. Detox Unit Care Protocol. Psychiatric Findings - Problem List ([place] 1, 2,3) (1) Nicotine dependence Current Visit: Yes Status: Acute Qualifiers: Nicotine product type: cigarettes Substance use status: in withdrawal Qualified Code(s): F17.213 - Nicotine dependence, cigarettes, with withdrawal (2) Sedative, hypnotic or anxiolytic dependence with withdrawal, uncomplicated Current Visit: Yes Status: Acute (3) Cocaine dependence Current Visit: Yes Status: Chronic Qualifiers: Substance use status: uncomplicated Qualified Code(s): F14.20 - Cocaine dependence, uncomplicated (4) Methadone maintenance therapy patient Current Visit: Yes Status: Chronic Comment: 130 mg po daily last dose verified (5) Anxiety and depression Current Visit: Yes Status: Suspected (6) Drug-induced mood disorder Current Visit: No Status: Acute (7) Opioid dependence Current Visit: No Status: Acute (8) Opioid dependence on agonist therapy Current Visit: No Status: Acute (9) Sedative hypnotic withdrawal Current Visit: No Status: Acute Qualifiers: Complication of substance-induced condition: uncomplicated Qualified Code(s ): F13.230 - Sedative, hypnotic or anxiolytic dependence with withdrawal, uncomplicated (10) PTSD (post-traumatic stress disorder) Current Visit: No Status: Chronic (11) Mood disorder Current Visit: No Status: Acute (12) History of seizure Current Visit: No Status: Chronic (13) Acute IN Current Visit: No Status: Inactive - Initial Treatment Plan Initial Treatment Plan: Observation. Detox Unit Care Protocol.
[2017-11-13] MEDS ORDERED: diazePAM 5 MG TABLET PO ONE (14:45)
[2017-11-13] MEDS ORDERED: BACITRACIN 0.9 GM PACKET TP ONE (14:45)
[2017-11-13] MEDS: BACLOFEN 10 MG TABLET (FP) PO SCH ×2 (15:24→22:18)
[2017-11-13] MEDS: NICOTINE POLACRILEX 4 MG GUM BUC PRN ×2 (15:29→22:20)
[2017-11-13 16:57] LABS: URINE APPEARANCE SLCLOUDY; URINE BILIRUBIN NEGATIVE (<2.0 mg/dL); URINE COLOR YELLOW; URINE GLUCOSE (UA) NEGATIVE (NEGATIVE); URINE KETONE NEGATIVE (NEGATIVE); URINE LEUK ESTERASE NEGATIVE (NEGATIVE); URINE NITRITE NEGATIVE (NEGATIVE); URINE PROTEIN NEGATIVE (NEGATIVE)
[2017-11-13] MEDS ORDERED: MELATONIN 5 MG TABLETS PO PRN (22:00)
--- NOTE | 2017-11-13 22:10 | EKG ---
Test Reason : Blood Pressure : / mmHG Vent. Rate : 051 BPM Atrial Rate : 051 BPM P-R Int : 156 ms QRS Dur : 086 ms QT Int : 480 ms P-R-T Axes : 061 000 009 degrees QTc Int : 442 ms SINUS BRADYCARDIA OTHERWISE NORMAL ECG WHEN COMPARED WITH ECG OF 28-AUG-2017 18:28, NO SIGNIFICANT CHANGE WAS FOUND Confirmed by JUAN A YUNG MD ([id number]) on 11/13/2017 10:10:02 PM Referred By: Riki MICHAEL Confirmed By:JUAN A YUNG MD
[2017-11-13] MEDS: THIAMINE HCL 100 MG TABLET (FP) PO SCH (22:17)
[2017-11-13] MEDS: diazePAM 5 MG TABLET PO SCH (22:18)
[2017-11-13] MEDS: diazePAM 5 MG TABLET PO PRN (22:18)
[2017-11-14] MEDS: diazePAM 5 MG TABLET PO PRN ×4 (02:58→16:45)
[2017-11-14] MEDS ORDERED: METHADONE HCL 10 MG TABLET ONE (05:25)
[2017-11-14] MEDS ORDERED: METHADONE HCL 40 MG DISPERSABLE TABLET ONE (05:25)
[2017-11-14] MEDS: METHADONE 120 MG, METHADONE 10 MG PO SCH (05:38)
[2017-11-14] MEDS: diazePAM 5 MG TABLET PO SCH ×3 (05:38→22:11)
[2017-11-14] MEDS: BACLOFEN 10 MG TABLET (FP) PO SCH ×3 (05:38→22:12)
[2017-11-14] MEDS: NICOTINE POLACRILEX 4 MG GUM BUC PRN (05:42)
[2017-11-14] MEDS ORDERED: METHADONE HCL 40 MG DISPERSABLE TABLET PO SCH ×2 (06:00→10:00)
[2017-11-14 09:52] LABS: HEMATOCRIT 41.7 % (35.4-49); MCH 30.7 pg (25.7-33.7); MCHC 33.6 g/dl (32.0-35.9); MEAN CELL VOLUME 91.2 fl (80-96); MEAN PLT VOLUME 10.1 fl (7.5-11.1); PLATELET COUNT 129 K/MM3 (134-434); RBC 4.57 M/mm3 (4.00-5.60); RDW 12.2 % (11.9-15.9); WHITE BLOOD COUNT 4.7 K/mm3 (4.0-10.0)
[2017-11-14 10:04] LABS: CHLORIDE 107 mmol/L (98-107); POTASSIUM 4.2 mmol/L (3.5-5.1); SODIUM 142 mmol/L (136-145)
[2017-11-14] MEDS: PRENATAL VITAMINS W/ FOLIC ACID TABLET (FP) PO SCH ×2 (10:10→10:12)
[2017-11-14] MEDS: NICOTINE 21 MG/24 HOURS TOPICAL PATCH TD SCH (10:11)
[2017-11-14 10:25] LABS: ALBUMIN 3.4 g/dl (3.4-5.0); ALK PHOS 69 U/L (45-117); ANION GAP 5 (8-16); BILIRUBIN,TOTAL 0.2 mg/dL (0.2-1.0); BLOOD UREA NITROGEN 18 mg/dL (7-18); CALCIUM 8.4 mg/dL (8.5-10.1); CO2 30 mmol/L (21-32); GLUCOSE,RANDOM 79 mg/dL (74-106); SGOT/AST 17 U/L (15-37); SGPT/ALT 29 U/L (12-78); TOT PROT 6.4 g/dl (6.4-8.2)
--- NOTE | 2017-11-14 11:54 | PN ---
S CIWA - CIWA Score Nausea/Vomitin Muscle Tremors: 3 Anxiety: 3 Agitation: 3 Paroxysmal Sweats: 1-Minimal Palms Moist Orientation: 0-Oriented Tacttile Disturbances: 1-Very Mild Itch/Numbness Auditory Disturbances: 1-Very Mild Visual Disturbances: 0-None Headache: 2-Mild CIWA-Ar Total Score: 17 BHS Progress Note (SOAP) Subjective: ALERT,IRRITABLE,ANXIOUS,INTERRUPTED SLEEP,TREMOR,PAIN IN THE LEFT LOWER MOLAR Objective: 11/14/17 11:51 Vital Signs Temperature 97.9 F 11/14/17 08:47 Pulse Rate 51 L 11/14/17 08:47 Respiratory Rate 18 11/14/17 08:47 Blood Pressure 106/63 11/14/17 08:47 O2 Sat by Pulse Oximetry (%) EKG SINUS BRADYCARDIA 50/MIN,PROLONG QT 480/444 NO CHEST PAIN,NO SOB,NO DIZZINESS 11/14/17 11:52 Laboratory Last Values WBC 4.7 K/mm3 (4.0-10.0) 11/14/17 07:00 RBC 4.57 M/mm3 (4.00-5.60) 11/14/17 07:00 Hgb 14.0 GM/dL (11.7-16.9) 11/14/17 07:00 Hct 41.7 % (35.4-49) 11/14/17 07:00 MCV 91.2 fl (80-96) 11/14/17 07:00 MCH 30.7 pg (25.7-33.7) 11/14/17 07:00 MCHC 33.6 g/dl (32.0-35.9) 11/14/17 07:00 RDW 12.2 % (11.9-15.9) 11/14/17 07:00 Plt Count 129 K/MM3 (134-434) L 11/14/17 07:00 MPV 10.1 fl (7.5-11.1) 11/14/17 07:00 Sodium 142 mmol/L (136-145) 11/14/17 07:00 Potassium 4.2 mmol/L (3.5-5.1) 11/14/17 07:00 Chloride 107 mmol/L (98-107) 11/14/17 07:00 Carbon Dioxide 30 mmol/L (21-32) 11/14/17 07:00 Anion Gap 5 (8-16) L 11/14/17 07:00 BUN 18 mg/dL (7-18) 11/14/17 07:00 Creatinine 1.0 mg/dL (0.7-1.3) 11/14/17 07:00 Creat Clearance w eGFR > 60 (>60) 11/14/17 07:00 Random Glucose 79 mg/dL (74-106) 11/14/17 07:00 Calcium 8.4 mg/dL (8.5-10.1) L 11/14/17 07:00 Total Bilirubin 0.2 mg/dL (0.2-1.0) 11/14/17 07:00 AST 17 U/L (15-37) 11/14/17 07:00 ALT 29 U/L (12-78) 11/14/17 07:00 Alkaline Phosphatase 69 U/L (45-117) 11/14/17 07:00 Total Protein 6.4 g/dl (6.4-8.2) 11/14/17 07:00 Albumin 3.4 g/dl (3.4-5.0) 11/14/17 07:00 Urine Color Yellow 11/13/17 14:45 Urine Appearance Slcloudy 11/13/17 14:45 Urine pH 5.0 (5.0-8.0) 11/13/17 14:45 Ur Specific [place] 1.031 (1.001-1.035) 11/13/17 14:45 Urine Protein Negative (NEGATIVE) 11/13/17 14:45 Urine Glucose (UA) Negative (NEGATIVE) 11/13/17 14:45 Urine Ketones Negative (NEGATIVE) 11/13/17 14:45 Urine Blood Negative (NEGATIVE) 11/13/17 14:45 Urine Nitrite Negative (NEGATIVE) 11/13/17 14:45 Urine Bilirubin Negative (<2.0 mg/dL) 11/13/17 14:45 Urine Urobilinogen 2.0 mg/dL (0.2-1.0) 11/13/17 14:45 Ur Leukocyte Esterase Negative (NEGATIVE) 11/13/17 14:45 HIV 1&2 Antibody Screen Negative 11/13/17 07:00 HIV P24 Antigen Negative 11/13/17 07:00 Assessment: 11/14/17 11:53 WITHDRAWAL SYMPTOM INFECTED DENTAL CAVITY LEFT LOWER MOLAR WITH GINGIVITIS Plan: CONTINUE DETOX,AMOXICILLIN 500 MGS PO TID FOR 7 DAYS
[2017-11-14] MEDS: AMOXICILLIN 500 MG CAPSULE (FP) PO SCH ×2 (14:21→22:12)
[2017-11-14] MEDS: THIAMINE HCL 100 MG TABLET (FP) PO SCH (23:18)
[2017-11-15] MEDS: diazePAM 5 MG TABLET PO PRN ×5 (01:36→20:44)
[2017-11-15] MEDS ORDERED: METHADONE HCL 40 MG DISPERSABLE TABLET ONE (04:56)
[2017-11-15] MEDS ORDERED: METHADONE HCL 10 MG TABLET ONE (04:56)
[2017-11-15] MEDS: BACLOFEN 10 MG TABLET (FP) PO SCH ×3 (05:33→23:13)
[2017-11-15] MEDS: AMOXICILLIN 500 MG CAPSULE (FP) PO SCH ×3 (05:33→22:19)
[2017-11-15] MEDS: METHADONE 120 MG, METHADONE 10 MG PO SCH (05:33)
[2017-11-15] MEDS: diazePAM 5 MG TABLET PO SCH ×2 (10:41→22:18)
[2017-11-15] MEDS: NICOTINE 21 MG/24 HOURS TOPICAL PATCH TD SCH ×2 (10:41→12:30)
[2017-11-15] MEDS: PRENATAL VITAMINS W/ FOLIC ACID TABLET (FP) PO SCH (10:43)
--- NOTE | 2017-11-15 11:16 | PN ---
S CIWA - CIWA Score Nausea/Vomitin Muscle Tremors: 3 Anxiety: 2 Agitation: 2 Paroxysmal Sweats: 1-Minimal Palms Moist Orientation: 0-Oriented Tacttile Disturbances: 1-Very Mild Itch/Numbness Auditory Disturbances: 1-Very Mild Visual Disturbances: 0-None Headache: 2-Mild CIWA-Ar Total Score: 15 BHS Progress Note (SOAP) Subjective: alert,irritable,anxious,interrupted sleep,less pain in the left molar Objective: 11/15/17 11:13 Vital Signs Temperature 96.8 F L 11/15/17 07:20 Pulse Rate 52 L 11/15/17 07:20 Respiratory Rate 20 11/15/17 07:20 Blood Pressure 120/78 11/15/17 07:20 O2 Sat by Pulse Oximetry (%) Vital Signs Temperature 96.8 F L 11/15/17 07:20 Pulse Rate 52 L 11/15/17 07:20 Respiratory Rate 20 11/15/17 07:20 Blood Pressure 120/78 11/15/17 07:20 O2 Sat by Pulse Oximetry (%) Laboratory Last Values WBC 4.7 K/mm3 (4.0-10.0) 11/14/17 07:00 RBC 4.57 M/mm3 (4.00-5.60) 11/14/17 07:00 Hgb 14.0 GM/dL (11.7-16.9) 11/14/17 07:00 Hct 41.7 % (35.4-49) 11/14/17 07:00 MCV 91.2 fl (80-96) 11/14/17 07:00 MCH 30.7 pg (25.7-33.7) 11/14/17 07:00 MCHC 33.6 g/dl (32.0-35.9) 11/14/17 07:00 RDW 12.2 % (11.9-15.9) 11/14/17 07:00 Plt Count 129 K/MM3 (134-434) L 11/14/17 07:00 MPV 10.1 fl (7.5-11.1) 11/14/17 07:00 Sodium 142 mmol/L (136-145) 11/14/17 07:00 Potassium 4.2 mmol/L (3.5-5.1) 11/14/17 07:00 Chloride 107 mmol/L (98-107) 11/14/17 07:00 Carbon Dioxide 30 mmol/L (21-32) 11/14/17 07:00 Anion Gap 5 (8-16) L 11/14/17 07:00 BUN 18 mg/dL (7-18) 11/14/17 07:00 Creatinine 1.0 mg/dL (0.7-1.3) 11/14/17 07:00 Creat Clearance w eGFR > 60 (>60) 11/14/17 07:00 Random Glucose 79 mg/dL (74-106) 11/14/17 07:00 Calcium 8.4 mg/dL (8.5-10.1) L 11/14/17 07:00 Total Bilirubin 0.2 mg/dL (0.2-1.0) 11/14/17 07:00 AST 17 U/L (15-37) 11/14/17 07:00 ALT 29 U/L (12-78) 11/14/17 07:00 Alkaline Phosphatase 69 U/L (45-117) 11/14/17 07:00 Total Protein 6.4 g/dl (6.4-8.2) 11/14/17 07:00 Albumin 3.4 g/dl (3.4-5.0) 11/14/17 07:00 Urine Color Yellow 11/13/17 14:45 Urine Appearance Slcloudy 11/13/17 14:45 Urine pH 5.0 (5.0-8.0) 11/13/17 14:45 Ur Specific [place] 1.031 (1.001-1.035) 11/13/17 14:45 Urine Protein Negative (NEGATIVE) 11/13/17 14:45 Urine Glucose (UA) Negative (NEGATIVE) 11/13/17 14:45 Urine Ketones Negative (NEGATIVE) 11/13/17 14:45 Urine Blood Negative (NEGATIVE) 11/13/17 14:45 Urine Nitrite Negative (NEGATIVE) 11/13/17 14:45 Urine Bilirubin Negative (<2.0 mg/dL) 11/13/17 14:45 Urine Urobilinogen 2.0 mg/dL (0.2-1.0) 11/13/17 14:45 Ur Leukocyte Esterase Negative (NEGATIVE) 11/13/17 14:45 RPR Titer Nonreactive (NONREACTIVE) 11/14/17 07:00 HIV 1&2 Antibody Screen Negative 11/13/17 07:00 HIV P24 Antigen Negative 11/13/17 07:00 Assessment: 11/15/17 11:15 withdrawal symptom Plan: continue detox
[2017-11-15] MEDS: NICOTINE POLACRILEX 4 MG GUM BUC PRN ×2 (15:35→20:44)
[2017-11-15] MEDS: THIAMINE HCL 100 MG TABLET (FP) PO SCH (22:19)
[2017-11-16] MEDS: diazePAM 5 MG TABLET PO PRN ×4 (00:47→13:35)
[2017-11-16] MEDS ORDERED: METHADONE HCL 40 MG DISPERSABLE TABLET ONE (03:20)
[2017-11-16] MEDS ORDERED: METHADONE HCL 10 MG TABLET ONE (03:20)
[2017-11-16] MEDS: METHADONE 120 MG, METHADONE 10 MG PO SCH (05:09)
[2017-11-16] MEDS: AMOXICILLIN 500 MG CAPSULE (FP) PO SCH ×2 (05:11→13:35)
[2017-11-16] MEDS: BACLOFEN 10 MG TABLET (FP) PO SCH ×2 (05:11→13:35)
[2017-11-16] MEDS: NICOTINE POLACRILEX 4 MG GUM BUC PRN ×3 (05:15→13:38)
--- NOTE | 2017-11-16 10:37 | PN ---
BHS Progress Note (SOAP) Subjective: feeling better less sweat no anxiety less restlessness social with peers in day room Objective: 11/16/17 10:36 Vital Signs Temperature 97.5 F L 11/16/17 10:14 Pulse Rate 47 L 11/16/17 10:14 Respiratory Rate 16 11/16/17 10:14 Blood Pressure 107/57 11/16/17 10:14 O2 Sat by Pulse Oximetry (%) Laboratory Last Values WBC 4.7 K/mm3 (4.0-10.0) 11/14/17 07:00 RBC 4.57 M/mm3 (4.00-5.60) 11/14/17 07:00 Hgb 14.0 GM/dL (11.7-16.9) 11/14/17 07:00 Hct 41.7 % (35.4-49) 11/14/17 07:00 MCV 91.2 fl (80-96) 11/14/17 07:00 MCH 30.7 pg (25.7-33.7) 11/14/17 07:00 MCHC 33.6 g/dl (32.0-35.9) 11/14/17 07:00 RDW 12.2 % (11.9-15.9) 11/14/17 07:00 Plt Count 129 K/MM3 (134-434) L 11/14/17 07:00 MPV 10.1 fl (7.5-11.1) 11/14/17 07:00 Sodium 142 mmol/L (136-145) 11/14/17 07:00 Potassium 4.2 mmol/L (3.5-5.1) 11/14/17 07:00 Chloride 107 mmol/L (98-107) 11/14/17 07:00 Carbon Dioxide 30 mmol/L (21-32) 11/14/17 07:00 Anion Gap 5 (8-16) L 11/14/17 07:00 BUN 18 mg/dL (7-18) 11/14/17 07:00 Creatinine 1.0 mg/dL (0.7-1.3) 11/14/17 07:00 Creat Clearance w eGFR > 60 (>60) 11/14/17 07:00 Random Glucose 79 mg/dL (74-106) 11/14/17 07:00 Calcium 8.4 mg/dL (8.5-10.1) L 11/14/17 07:00 Total Bilirubin 0.2 mg/dL (0.2-1.0) 11/14/17 07:00 AST 17 U/L (15-37) 11/14/17 07:00 ALT 29 U/L (12-78) 11/14/17 07:00 Alkaline Phosphatase 69 U/L (45-117) 11/14/17 07:00 Total Protein 6.4 g/dl (6.4-8.2) 11/14/17 07:00 Albumin 3.4 g/dl (3.4-5.0) 11/14/17 07:00 Urine Color Yellow 11/13/17 14:45 Urine Appearance Slcloudy 11/13/17 14:45 Urine pH 5.0 (5.0-8.0) 11/13/17 14:45 Ur Specific [place] 1.031 (1.001-1.035) 11/13/17 14:45 Urine Protein Negative (NEGATIVE) 11/13/17 14:45 Urine Glucose (UA) Negative (NEGATIVE) 11/13/17 14:45 Urine Ketones Negative (NEGATIVE) 11/13/17 14:45 Urine Blood Negative (NEGATIVE) 11/13/17 14:45 Urine Nitrite Negative (NEGATIVE) 11/13/17 14:45 Urine Bilirubin Negative (<2.0 mg/dL) 11/13/17 14:45 Urine Urobilinogen 2.0 mg/dL (0.2-1.0) 11/13/17 14:45 Ur Leukocyte Esterase Negative (NEGATIVE) 11/13/17 14:45 RPR Titer Nonreactive (NONREACTIVE) 11/14/17 07:00 HIV 1&2 Antibody Screen Negative 11/13/17 07:00 HIV P24 Antigen Negative 11/13/17 07:00 lab noted Assessment: 11/16/17 10:37 mild withdrawal sx Plan: medically supervised detox
[2017-11-16] MEDS: NICOTINE 21 MG/24 HOURS TOPICAL PATCH TD SCH (10:59)
[2017-11-16] MEDS: PRENATAL VITAMINS W/ FOLIC ACID TABLET (FP) PO SCH (10:59)
[2017-11-16] MEDS: diazePAM 5 MG TABLET PO SCH (11:00)
[2017-11-16 17:29] VITALS: BP 123/61; PULSE 50; TEMP 97.2
--- NOTE | 2017-11-16 20:35 | DS ---
[facility] Detox Discharge Summary Admission Date: 11/13/17 Discharge Date: 11/16/17 - History Present History: Cocaine Dependence, Opioid Dependence, Sedative Dependence Additional Comments: Patient to follow up with PMD upon discharge. If worsening symptoms are present patient to seek medical attention follow up at local ED, urgent care or PMD. - Physical Exam Results Vital Signs: Vital Signs Temperature 97.2 F L 11/16/17 17:28 Pulse Rate 50 L 11/16/17 17:28 Respiratory Rate 18 11/16/17 17:28 Blood Pressure 123/61 11/16/17 17:28 O2 Sat by Pulse Oximetry (%) Pertinent Admission Physical Exam Findings: Vital Signs Temperature 97.2 F L 11/16/17 17:28 Pulse Rate 50 L 11/16/17 17:28 Respiratory Rate 18 11/16/17 17:28 Blood Pressure 123/61 11/16/17 17:28 O2 Sat by Pulse Oximetry (%) Laboratory Last Values WBC 4.7 K/mm3 (4.0-10.0) 11/14/17 07:00 RBC 4.57 M/mm3 (4.00-5.60) 11/14/17 07:00 Hgb 14.0 GM/dL (11.7-16.9) 11/14/17 07:00 Hct 41.7 % (35.4-49) 11/14/17 07:00 MCV 91.2 fl (80-96) 11/14/17 07:00 MCH 30.7 pg (25.7-33.7) 11/14/17 07:00 MCHC 33.6 g/dl (32.0-35.9) 11/14/17 07:00 RDW 12.2 % (11.9-15.9) 11/14/17 07:00 Plt Count 129 K/MM3 (134-434) L 11/14/17 07:00 MPV 10.1 fl (7.5-11.1) 11/14/17 07:00 Sodium 142 mmol/L (136-145) 11/14/17 07:00 Potassium 4.2 mmol/L (3.5-5.1) 11/14/17 07:00 Chloride 107 mmol/L (98-107) 11/14/17 07:00 Carbon Dioxide 30 mmol/L (21-32) 11/14/17 07:00 Anion Gap 5 (8-16) L 11/14/17 07:00 BUN 18 mg/dL (7-18) 11/14/17 07:00 Creatinine 1.0 mg/dL (0.7-1.3) 11/14/17 07:00 Creat Clearance w eGFR > 60 (>60) 11/14/17 07:00 Random Glucose 79 mg/dL (74-106) 11/14/17 07:00 Calcium 8.4 mg/dL (8.5-10.1) L 11/14/17 07:00 Total Bilirubin 0.2 mg/dL (0.2-1.0) 11/14/17 07:00 AST 17 U/L (15-37) 11/14/17 07:00 ALT 29 U/L (12-78) 11/14/17 07:00 Alkaline Phosphatase 69 U/L (45-117) 11/14/17 07:00 Total Protein 6.4 g/dl (6.4-8.2) 11/14/17 07:00 Albumin 3.4 g/dl (3.4-5.0) 11/14/17 07:00 Urine Color Yellow 11/13/17 14:45 Urine Appearance Slcloudy 11/13/17 14:45 Urine pH 5.0 (5.0-8.0) 11/13/17 14:45 Ur Specific [place] 1.031 (1.001-1.035) 11/13/17 14:45 Urine Protein Negative (NEGATIVE) 11/13/17 14:45 Urine Glucose (UA) Negative (NEGATIVE) 11/13/17 14:45 Urine Ketones Negative (NEGATIVE) 11/13/17 14:45 Urine Blood Negative (NEGATIVE) 11/13/17 14:45 Urine Nitrite Negative (NEGATIVE) 11/13/17 14:45 Urine Bilirubin Negative (<2.0 mg/dL) 11/13/17 14:45 Urine Urobilinogen 2.0 mg/dL (0.2-1.0) 11/13/17 14:45 Ur Leukocyte Esterase Negative (NEGATIVE) 11/13/17 14:45 RPR Titer Nonreactive (NONREACTIVE) 11/14/17 07:00 HIV 1&2 Antibody Screen Negative 11/13/17 07:00 HIV P24 Antigen Negative 11/13/17 07:00 - Treatment Hospital Course: Detox Protocol Followed, Detoxed Safely, Responded well, Discharged Condition Good Patient has Accepted a Rehab Referral to: Patient to follow up with outpatient programs - Medication Discharge Medications: Ambulatory Orders Methadone [Dolophine -] 130 mg PO DAILY 11/13/17 - Diagnosis (1) Nicotine dependence Current Visit: Yes Status: Acute Qualifiers: Nicotine product type: cigarettes Substance use status: in withdrawal Qualified Code(s): F17.213 - Nicotine dependence, cigarettes, with withdrawal (2) Sedative, hypnotic or anxiolytic dependence with withdrawal, uncomplicated Current Visit: Yes Status: Acute (3) Cocaine dependence Current Visit: Yes Status: Chronic Qualifiers: Substance use status: uncomplicated Qualified Code(s): F14.20 - Cocaine dependence, uncomplicated (4) Methadone maintenance therapy patient Current Visit: Yes Status: Chronic - AMA Did Patient Leave Against Medical Advice: No
--- NOTE | 2017-11-16 20:39 | PN ---
[facility] Progress Note Note: Vital Signs Temperature 97.2 F L 11/16/17 17:28 Pulse Rate 50 L 11/16/17 17:28 Respiratory Rate 18 11/16/17 17:28 Blood Pressure 123/61 11/16/17 17:28 O2 Sat by Pulse Oximetry (%) Patient requested to leave at this time. Patient currently stable. Patient discharged as per patients request and stable clinical presentation. Patient to follow up with out patient services. If worsening symptoms follow up with local ED, urgent care or PMD.
[2017-11-17] MEDS ORDERED: diazePAM 5 MG TABLET PO SCH (10:00)
== END 2017-11-16 20:33 | disposition home or self-care (01) | DRG 773 ==
LOC: YASAS 09:35 → Y6N 14:22
PROVIDERS: ADMIT Surgery; ATTEND Surgery
PROC: HZ2ZZZZ Detoxification Services for Substance Abuse Treatment (ICD-10-PCS; principal; 2017-11-13)
DX: F11.23 Opioid dependence with withdrawal (principal); F13.230 Sedative, hypnotic or anxiolytic dependence with withdrawal, uncomplicated; F14.20 Cocaine dependence, uncomplicated; F17.213 Nicotine dependence, cigarettes, with withdrawal; F41.8 Other specified anxiety disorders; E86.0 Dehydration; Z51.81 Encounter for therapeutic drug level monitoring
CPT/HCPCS: 36415; 80053; 81003; 85027; 86593; 93005; 93010; J0475

== ENCOUNTER 2018-05-17 14:38 | Inpatient (IN) | payer OTHER ==
[2018-05-17 14:48] VITALS: BMI 28.3
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
[2018-05-17] MEDS ORDERED: MAGNESIUM HYDROX 2400MG/30ML ORAL SUSPENSION 30 ML CUP PO PRN (18:16)
[2018-05-17] MEDS ORDERED: P-EPHED 60MG/TRIPROLIDI 2.5MG TABLET PO PRN (18:16)
[2018-05-17] MEDS ORDERED: LOPERAMIDE HCL 2 MG CAPSULE PO PRN (18:16)
[2018-05-17] MEDS ORDERED: MENTHOL/PHENOL 1 EACH UD MM PRN (18:16)
[2018-05-17] MEDS ORDERED: MAGNESIUM CITRATE 300 ML BOTTLE PO PRN (18:16)
[2018-05-17] MEDS ORDERED: guaiFENesin/D-METHORPHAN HB 10 ML UNIT-DOSE CUPS PO PRN (18:16)
[2018-05-17] MEDS ORDERED: MAG HYDROX/AL HYDROX/SIMETH 30 ML UNIT-DOSE CUP PO PRN (18:16)
[2018-05-17] MEDS ORDERED: IBUPROFEN 400 MG TABLET (FP) PO PRN (18:16)
[2018-05-17] MEDS ORDERED: ACETAMINOPHEN 325 MG TABLET (FP) PO PRN (18:16)
[2018-05-17] MEDS ORDERED: hydrOXYzine PAMOATE 50 MG CAPSULE (FP) PO PRN (18:16)
[2018-05-17] MEDS ORDERED: diazePAM 5 MG TABLET PO ONE (18:30)
[2018-05-17] MEDS: NICOTINE POLACRILEX 2 MG GUM BC PRN ×2 (20:03→22:31)
[2018-05-17] MEDS ORDERED: MELATONIN 5 MG TABLETS PO PRN (22:00)
[2018-05-17] MEDS: diazePAM 5 MG TABLET PO SCH (22:30)
[2018-05-17] MEDS: THIAMINE HCL 100 MG TABLET (FP) PO SCH (22:31)
[2018-05-18] MEDS: diazePAM 5 MG TABLET PO PRN ×4 (01:01→20:27)
[2018-05-18] MEDS: diazePAM 5 MG TABLET PO SCH ×3 (05:40→22:16)
[2018-05-18] MEDS: NICOTINE POLACRILEX 2 MG GUM BC PRN ×3 (05:41→13:22)
[2018-05-18] MEDS ORDERED: METHADONE HCL 10 MG TABLET PO SCH (08:00)
[2018-05-18] MEDS ORDERED: METHADONE HCL 10 MG TABLET ONE (09:01)
[2018-05-18] MEDS ORDERED: METHADONE HCL 40 MG DISPERSABLE TABLET ONE (09:02)
[2018-05-18] MEDS: METHADONE 120 MG, METHADONE 20 MG PO SCH (09:09)
[2018-05-18] MEDS: NICOTINE 21 MG/24 HOURS TOPICAL PATCH TD SCH (09:10)
[2018-05-18] MEDS: PRENATAL VITAMINS W/ FOLIC ACID TABLET (FP) PO SCH (09:14)
--- NOTE | 2018-05-18 09:36 | EKG ---
Test Reason : Blood Pressure : / mmHG Vent. Rate : 062 BPM Atrial Rate : 062 BPM P-R Int : 150 ms QRS Dur : 084 ms QT Int : 434 ms P-R-T Axes : 068 010 030 degrees QTc Int : 440 ms NORMAL SINUS RHYTHM NORMAL ECG WHEN COMPARED WITH ECG OF 13-NOV-2017 15:00, NO SIGNIFICANT CHANGE WAS FOUND Confirmed by JAYMIE TOPETE MD ([id number]) on 05/18/2018 9:36:24 AM Referred By: Confirmed By:JAYMIE TOPETE MD
[2018-05-18 10:41] LABS: HEMATOCRIT 43.3 % (35.4-49); HEMOGLOBIN 14.2 GM/dL (11.7-16.9); MCH 29.7 pg (25.7-33.7); MCHC 32.9 g/dl (32.0-35.9); MEAN CELL VOLUME 90.3 fl (80-96); MEAN PLT VOLUME 10.3 fl (7.5-11.1); PLATELET COUNT 161 K/MM3 (134-434); RBC 4.79 M/mm3 (4.00-5.60); RDW 12.6 % (11.9-15.9); WHITE BLOOD COUNT 6.4 K/mm3 (4.0-10.0)
[2018-05-18 11:01] LABS: ALBUMIN 3.8 g/dl (3.4-5.0); ALK PHOS 76 U/L (45-117); ANION GAP 8 MMOL/L (8-16); BILIRUBIN,TOTAL 0.2 mg/dL (0.2-1); BLOOD UREA NITROGEN 17 mg/dL (7-18); CALCIUM 8.6 mg/dL (8.5-10.1); CHLORIDE 104 mmol/L (98-107); CO2 30 mmol/L (21-32); CREATININE 1.1 mg/dL (0.55-1.3); GLUCOSE,RANDOM 88 mg/dL (74-106); POTASSIUM 4.2 mmol/L (3.5-5.1); SGOT/AST 20 U/L (15-37); SGPT/ALT 36 U/L (13-61); SODIUM 141 mmol/L (136-145); TOT PROT 6.8 g/dl (6.4-8.2)
--- NOTE | 2018-05-18 12:57 | PN ---
S CIWA - CIWA Score Nausea/Vomitin-No Nausea/No Vomiting Muscle Tremors: None Anxiety: 4-Mod. Anxious/Guarded Agitation: 5 Paroxysmal Sweats: 3 Orientation: 0-Oriented Tacttile Disturbances: 0-None Auditory Disturbances: 0-None Visual Disturbances: 0-None Headache: 0-None Present CIWA-Ar Total Score: 12 BHS Progress Note (SOAP) Subjective: PATIENT C/O INTERRUPTED SLEEP, SWEATING, ANXIETY AND IRRITABILITY. Objective: 05/18/18 12:53 Vital Signs Temperature 97.0 F L 05/18/18 09:17 Pulse Rate 77 05/18/18 09:17 Respiratory Rate 19 05/18/18 09:17 Blood Pressure 116/71 05/18/18 09:17 O2 Sat by Pulse Oximetry (%) Laboratory Tests 05/18/18 05/18/18 05/18/18 07:00 07:00 07:00 WBC 6.4 RBC 4.79 Hgb 14.2 Hct 43.3 MCV 90.3 MCH 29.7 MCHC 32.9 RDW 12.6 Plt Count 161 D MPV 10.3 Sodium 141 Potassium 4.2 Chloride 104 Carbon Dioxide 30 Anion Gap 8 BUN 17 Creatinine 1.1 Creat Clearance w eGFR > 60 Random Glucose 88 Calcium 8.6 Total Bilirubin 0.2 AST 20 ALT 36 Alkaline Phosphatase 76 Total Protein 6.8 Albumin 3.8 RPR Titer Nonreactive PE: ALERT AND ORIENTED X 3 SKIN WARM, +FACIAL FLUSHING IRRITABLE, ARGUMENTATIVE WITH STAFF PACING ON UNIT Assessment: 05/18/18 12:54 WITHDRAWAL SX Plan: CONTINUE DETOX REGIMEN ENCOURAGE ORAL FLUIDS BEHAVIOUR EXPECTATIONS AND UNIT PROTOCOL REVIEWED WITH PATIENT CONTINUE TO MONITOR CLINICALLY
[2018-05-18] MEDS: NICOTINE POLACRILEX 4 MG GUM BUC PRN ×2 (16:32→20:27)
[2018-05-18] MEDS: THIAMINE HCL 100 MG TABLET (FP) PO SCH (22:16)
[2018-05-19] MEDS: diazePAM 5 MG TABLET PO PRN ×5 (00:30→18:14)
[2018-05-19] MEDS: NICOTINE POLACRILEX 4 MG GUM BUC PRN ×7 (00:30→22:15)
[2018-05-19] MEDS ORDERED: METHADONE HCL 40 MG DISPERSABLE TABLET ONE (04:21)
[2018-05-19] MEDS ORDERED: METHADONE HCL 10 MG TABLET ONE (04:21)
[2018-05-19] MEDS: METHADONE 120 MG, METHADONE 20 MG PO SCH (05:15)
[2018-05-19] MEDS: PRENATAL VITAMINS W/ FOLIC ACID TABLET (FP) PO SCH (09:22)
[2018-05-19] MEDS: NICOTINE 21 MG/24 HOURS TOPICAL PATCH TD SCH (09:22)
[2018-05-19] MEDS: diazePAM 5 MG TABLET PO SCH ×2 (09:47→22:14)
[2018-05-19] MEDS ORDERED: CYCLOBENZAPRINE HCL 10 MG TABLET (FP) PO PRN (12:02)
--- NOTE | 2018-05-19 17:05 | PN ---
S CIWA - CIWA Score Nausea/Vomitin Muscle Tremors: 3 Anxiety: 4-Mod. Anxious/Guarded Agitation: 4-Moderately Restless Paroxysmal Sweats: 3 Orientation: 0-Oriented Tacttile Disturbances: 0-None Auditory Disturbances: 0-None Visual Disturbances: 0-None Headache: 2-Mild CIWA-Ar Total Score: 19 BHS Progress Note (SOAP) Subjective: H/A, Body Aches, Nausea, Sweating, Tremors. Objective: PATIENT A & O X 3, OBSERVED AMBULATING ON UNIT. IN NO ACUTE DISTRESS. 05/19/18 17:04 Vital Signs Temperature 97.6 F 05/19/18 14:53 Pulse Rate 58 L 05/19/18 14:53 Respiratory Rate 18 05/19/18 14:53 Blood Pressure 109/71 05/19/18 14:53 O2 Sat by Pulse Oximetry (%) Laboratory Tests 05/18/18 05/18/18 05/18/18 07:00 07:00 07:00 WBC 6.4 RBC 4.79 Hgb 14.2 Hct 43.3 MCV 90.3 MCH 29.7 MCHC 32.9 RDW 12.6 Plt Count 161 D MPV 10.3 Sodium 141 Potassium 4.2 Chloride 104 Carbon Dioxide 30 Anion Gap 8 BUN 17 Creatinine 1.1 Creat Clearance w eGFR > 60 Random Glucose 88 Calcium 8.6 Total Bilirubin 0.2 AST 20 ALT 36 Alkaline Phosphatase 76 Total Protein 6.8 Albumin 3.8 RPR Titer Nonreactive LABS NOTED. Assessment: 05/19/18 17:04 WITHDRAWAL SYMPTOMS. Plan: CONTINUE DETOX. PRN FLEXERIL FOR BODY ACHES / MUSCLE SPASMS.
[2018-05-19] MEDS: THIAMINE HCL 100 MG TABLET (FP) PO SCH (22:14)
[2018-05-20] MEDS: NICOTINE POLACRILEX 4 MG GUM BUC PRN ×5 (00:50→15:48)
[2018-05-20] MEDS: diazePAM 5 MG TABLET PO PRN ×4 (00:50→15:48)
[2018-05-20] MEDS ORDERED: METHADONE HCL 10 MG TABLET ONE (03:18)
[2018-05-20] MEDS ORDERED: METHADONE HCL 40 MG DISPERSABLE TABLET ONE (03:18)
[2018-05-20] MEDS: METHADONE 120 MG, METHADONE 20 MG PO SCH (05:32)
[2018-05-20] MEDS: NICOTINE 21 MG/24 HOURS TOPICAL PATCH TD SCH (09:31)
[2018-05-20] MEDS: diazePAM 5 MG TABLET PO SCH ×2 (09:31→22:22)
[2018-05-20] MEDS: PRENATAL VITAMINS W/ FOLIC ACID TABLET (FP) PO SCH (09:31)
--- NOTE | 2018-05-20 16:15 | PN ---
BHS Progress Note (SOAP) Subjective: Sweating, chills, tremor, nausea, interrupted sleep Objective: 05/20/18 16:13 Last Vital Signs Temp Pulse Resp BP Pulse Ox 98.4 F 76 18 103/73 05/20/18 13:14 05/20/18 13:14 05/20/18 13:14 05/20/18 13:14 Laboratory Tests 05/18/18 05/18/18 05/18/18 07:00 07:00 07:00 WBC 6.4 RBC 4.79 Hgb 14.2 Hct 43.3 MCV 90.3 MCH 29.7 MCHC 32.9 RDW 12.6 Plt Count 161 D MPV 10.3 Sodium 141 Potassium 4.2 Chloride 104 Carbon Dioxide 30 Anion Gap 8 BUN 17 Creatinine 1.1 Creat Clearance w eGFR > 60 Random Glucose 88 Calcium 8.6 Total Bilirubin 0.2 AST 20 ALT 36 Alkaline Phosphatase 76 Total Protein 6.8 Albumin 3.8 RPR Titer Nonreactive Labs reviewed Assessment: 05/20/18 16:14 Withdrawal symptoms Plan: Continue detox Encouraged PO water intake
[2018-05-20] MEDS: THIAMINE HCL 100 MG TABLET (FP) PO SCH (22:23)
[2018-05-21] MEDS ORDERED: METHADONE HCL 10 MG TABLET ONE (04:33)
[2018-05-21] MEDS ORDERED: METHADONE HCL 40 MG DISPERSABLE TABLET ONE (04:34)
[2018-05-21] MEDS: METHADONE 120 MG, METHADONE 20 MG PO SCH (05:21)
[2018-05-21] MEDS: NICOTINE POLACRILEX 4 MG GUM BUC PRN (05:21)
[2018-05-21 06:11] VITALS: BP 102/70; PULSE 72; TEMP 98.4
[2018-05-21] MEDS: NICOTINE 21 MG/24 HOURS TOPICAL PATCH TD SCH (09:04)
[2018-05-21] MEDS: PRENATAL VITAMINS W/ FOLIC ACID TABLET (FP) PO SCH (09:04)
[2018-05-21] MEDS ORDERED: diazePAM 5 MG TABLET PO SCH (10:00)
--- NOTE | 2018-05-21 14:06 | DS ---
[facility] Detox Discharge Summary Admission Date: 05/17/18 Discharge Date: 05/21/18 - History Present History: Sedative Dependence Additional Comments: 32 years old male admitted on 05/17/18 for benzo withdrawal stabilization feeling better today preferred to go to methadone program with take home bottle for tomorrow 05/22/18 alert no acute distress patient took methadone 140 mg today upon discharge to home [facility] - Physical Exam Results Vital Signs: Vital Signs Temperature 98.4 F 05/21/18 06:10 Pulse Rate 72 05/21/18 06:10 Respiratory Rate 18 05/21/18 06:10 Blood Pressure 102/70 05/21/18 06:10 O2 Sat by Pulse Oximetry (%) Pertinent Admission Physical Exam Findings: benzo withdrawal sx Laboratory Last Values WBC 6.4 K/mm3 (4.0-10.0) 05/18/18 07:00 RBC 4.79 M/mm3 (4.00-5.60) 05/18/18 07:00 Hgb 14.2 GM/dL (11.7-16.9) 05/18/18 07:00 Hct 43.3 % (35.4-49) 05/18/18 07:00 MCV 90.3 fl (80-96) 05/18/18 07:00 MCH 29.7 pg (25.7-33.7) 05/18/18 07:00 MCHC 32.9 g/dl (32.0-35.9) 05/18/18 07:00 RDW 12.6 % (11.9-15.9) 05/18/18 07:00 Plt Count 161 K/MM3 (134-434) D 05/18/18 07:00 MPV 10.3 fl (7.5-11.1) 05/18/18 07:00 Sodium 141 mmol/L (136-145) 05/18/18 07:00 Potassium 4.2 mmol/L (3.5-5.1) 05/18/18 07:00 Chloride 104 mmol/L (98-107) 05/18/18 07:00 Carbon Dioxide 30 mmol/L (21-32) 05/18/18 07:00 Anion Gap 8 MMOL/L (8-16) 05/18/18 07:00 BUN 17 mg/dL (7-18) 05/18/18 07:00 Creatinine 1.1 mg/dL (0.55-1.3) 05/18/18 07:00 Creat Clearance w eGFR > 60 (>60) 05/18/18 07:00 Random Glucose 88 mg/dL (74-106) 05/18/18 07:00 Calcium 8.6 mg/dL (8.5-10.1) 05/18/18 07:00 Total Bilirubin 0.2 mg/dL (0.2-1) 05/18/18 07:00 AST 20 U/L (15-37) 05/18/18 07:00 ALT 36 U/L (13-61) 05/18/18 07:00 Alkaline Phosphatase 76 U/L (45-117) 05/18/18 07:00 Total Protein 6.8 g/dl (6.4-8.2) 05/18/18 07:00 Albumin 3.8 g/dl (3.4-5.0) 05/18/18 07:00 RPR Titer Nonreactive (NONREACTIVE) 05/18/18 07:00 lab noted - Treatment Hospital Course: Detox Protocol Followed, Detoxed Safely, Responded well, Discharged Condition Good, Rehab Referral Accepted Patient has Accepted a Rehab Referral to: [facility] - Medication Discharge Medications: Ambulatory Orders Methadone [Dolophine -] 140 mg PO DAILY 11/13/17 Zolpidem Tartrate [Ambien] 5 mg PO HS 05/17/18 - Diagnosis (1) Sedative, hypnotic or anxiolytic dependence with withdrawal, uncomplicated Status: Acute (2) Methadone maintenance therapy patient Status: Chronic (3) Nicotine dependence Status: Acute Qualifiers: Nicotine product type: cigarettes Substance use status: in withdrawal Qualified Code(s): F17.213 - Nicotine dependence, cigarettes, with withdrawal - AMA Did Patient Leave Against Medical Advice: No
== END 2018-05-21 09:09 | disposition home or self-care (01) | DRG 773 ==
LOC: YASAS 14:38 → Y3N 17:30
PROC: HZ2ZZZZ Detoxification Services for Substance Abuse Treatment (ICD-10-PCS; principal; 2018-05-17)
DX: F13.230 Sedative, hypnotic or anxiolytic dependence with withdrawal, uncomplicated (principal); F11.20 Opioid dependence, uncomplicated; F14.20 Cocaine dependence, uncomplicated; F17.213 Nicotine dependence, cigarettes, with withdrawal; Z86.69 Personal history of other diseases of the nervous system and sense organs
CPT/HCPCS: 36415; 80053; 85027; 86593; 93005; 93010

== ENCOUNTER 2018-08-04 14:55 | Inpatient (IN) | payer OTHER ==
[2018-08-04 17:09] VITALS: BMI 29.4
--- NOTE | 2018-08-04 17:19 | HP ---
CIWA Score Nausea/Vomitin Muscle Tremors: 2 Anxiety: 2 Agitation: 2 Paroxysmal Sweats: 2 Orientation: 0-Oriented Tacttile Disturbances: 1-Very Mild Itch/Numbness Auditory Disturbances: 1-Very Mild Visual Disturbances: 0-None Headache: 2-Mild CIWA-Ar Total Score: 14 - Admission Criteria OASAS Guidelines: Admission for Medically Managed Detox: Requires at least one of the followin. CIWA greater than 12 2. Seizures within the past 24 hours 3. Delirium tremens within the past 24 hours 4. Hallucinations within the past 24 hours 5. Acute intervention needed for co occurring medical disorder 6. Acute intervention needed for co occurring psychiatric disorder 7. Severe withdrawal that cannot be handled at a lower level of care (continued vomiting, continued diarrhea, abnormal vital signs) requiring intravenous medication and/or fluids 8. Patient presents the following: CIWA greater than 12 Admission Criteria Met: Admission criteria met Admission ROS [facility] Chief Complaint: i need help to stop using xanax and kionopin Allergies/Adverse Reactions: Allergies Allergy/AdvReac Type Severity Reaction Status Date / Time mushroom Allergy Severe Difficulty Verified 08/04/18 16:57 Breathing No Known Drug Allergies Allergy Verified 08/04/18 16:57 History of Present Illness: this 33 years old male with xanax and klonopin dependence seeking detox, withdrawal symptom,mmtp 140 mgs/day/last medicated today,has a bottle to take home with him for tomorrow multiple admissions in the past,last detox 05/17/18 to 05/21/18 longest sobriety 5 years plan for rehab after detox seizure last 3 years ago - Ebola screening Have you traveled outside of the country in the last 21 days: No (N) Have you had contact with anyone from an Ebola affected area: No Have you been sick,other than usual withdrawal symptoms: No Do you have a fever: No - Review of Systems Constitutional: Chills, Loss of Appetite, Malaise, Night Sweats, Changes in sleep, Weakness EENT: reports: Tearing, Nose Congestion Respiratory: reports: No Symptoms reported Cardiac: reports: No Symptoms Reported GI: reports: Diarrhea, Nausea, Vomiting, Abdominal cramping : reports: No Symptoms Reported Musculoskeletal: reports: Back Pain, Joint Pain, Muscle Pain Integumentary: reports: Dryness Neuro: reports: Headache, Tremors Endocrine: reports: No Symptoms Reported Hematology: reports: No Symptoms Reported Psychiatric: reports: No Sypmtoms Reported, Judgement Intact, Mood/Affect Appropiate, Orientated x3 Other Systems: Reviewed and Negative Patient History - Patient Medical History Hx Anemia: No Hx Asthma: No Hx Chronic Obstructive Pulmonary Disease (COPD): No Hx Cancer: No Hx Cardiac Disorders: No Hx Congestive Heart Failure: No Hx Hypertension: No Hx Hypercholesterolemia: No Hx Pacemaker: No HX Cerebrovascular Accident: No Hx Seizures: Yes (drug related-last episode was in 08/2017) Hx Dementia: No Hx Diabetes: No Hx Gastrointestinal Disorders: No Hx Liver Disease: No Hx Genitourinary Disorders: No Hx Sexually Transmitted Disorders: No Hx Renal Disease (ESRD): No Hx Thyroid Disease: No Hx Human Immunodeficiency Virus (HIV): No (last 05/17/18 negative) Hx Hepatitis C: No Hx Depression: No Hx Suicide Attempt: No Hx Bipolar Disorder: No Hx Schizophrenia: No Other Medical History: no suicidal,no homicidal - Patient Surgical History Past Surgical History: No Hx Neurologic Surgery: No Hx Cataract Extraction: No Hx Cardiac Surgery: No Hx Lung Surgery: No Hx Breast Surgery: No Hx Breast Biopsy: No Hx Abdominal Surgery: No Hx Appendectomy: No Hx Cholecystectomy: No Hx Genitourinary Surgery: No Hx Section: No Hx Orthopedic Surgery: No Anesthesia Reaction: No - PPD History Previous Implant?: Yes Documented Results: Negative w/proof Implanted On Prior [facility] Admission?: Yes Date: 07/13/17 Results: 0 mm PPD to be Administered?: No - Smoking Cessation Smoking history: Current every day smoker Have you smoked in the past 12 months: Yes Aproximately how many cigarettes per day: 20 Cigars Per Day: 0 Hx Chewing Tobacco Use: No Initiated information on smoking cessation: Yes 'Breaking Loose' booklet given: 08/04/18 - Substance & Tx. History Hx Alcohol Use: No Hx Substance Use: Yes Substance Use Type: None, Tranquilizers Hx Substance Use Treatment: Yes ([facility] 05/17/18 to 05/21/18) - Substances Abused Alprazolam (Xanax) Route: Oral Frequency: Daily Amount used: 4/2MG IN AM AND PM 5/2MG Age of first use: 20 Date of Last Use: 08/04/18 Benzodiazepine (Klonopin) Route: Oral Frequency: Daily Amount used: 5/2MG -10/2MG Age of first use: 20 Date of Last Use: 08/04/18 Family Disease History - Family Disease History Family Disease History: Other: Father (alive and well), Mother (alive, and well) Admission Physical Exam [facility] - Vital Signs Vital Signs: Vital Signs - 24 hr 08/04/18 16:58 Temperature 98.6 F Pulse Rate 92 H Respiratory 18 Rate Blood Pressure 121/76 - Physical General Appearance: Yes: Moderate Distress, Tremorous, Irritable, Sweating, Anxious HEENTM: Yes: Normal ENT Inspection, CUCA, Pharynx Normal Respiratory: Yes: Lungs Clear, Normal Breath Sounds, No Respiratory Distress Neck: Yes: Within Normal Limits, Supple, Trachea in good position Breast: Yes: Within Normal Limits, Other Cardiology: Yes: Within Normal Limits, Regular Rate, S1, S2 Abdominal: Yes: Within Normal Limits, Normal Bowel Sounds, Non Tender, Soft Genitourinary: Yes: Within Normal Limits Back: Yes: Muscle Spasm Musculoskeletal: Yes: full range of Motion, Back pain, Muscle Pain Extremities: Yes: Within Normal Limits, Normal Range of Motion, Tremors 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: 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, Fully Oriented, Alert, Motor Strength 5/5 Integumentary: Yes: Dry Lymphatic: Yes: Within Normal Limits - Diagnostic (1) Sedative, hypnotic or anxiolytic dependence with withdrawal, uncomplicated Current Visit: No Status: Acute (2) Dehydration Current Visit: No Status: Acute (3) Nicotine dependence Current Visit: No Status: Acute Qualifiers: Nicotine product type: cigarettes Substance use status: in withdrawal Qualified Code(s): F17.213 - Nicotine dependence, cigarettes, with withdrawal (4) History of seizure Current Visit: No Status: Chronic Comment: REPORTED R/T WITHDRAWALS (5) Methadone maintenance therapy patient Current Visit: No Status: Chronic Comment: 130 mg po daily last dose verified (6) History of chest pain Current Visit: Yes Status: Acute Cleared for Admission [facility] - Detox or Rehab [facility] Level of Care: Medically Managed Detox Regimen/Protocol: Valium [facility] Breath Alcohol Content Breath Alcohol Content: 0 Urine Drug Screen - Results Drug Screen Negative: No Urine Drug Screen Results: CAROLYN-Cocaine, BZO-Benzodiazepines, MTD-Methadone Inpatient Rehab Admission - Rehab Decision to Admit Inpatient rehab admission?: No
[2018-08-04] MEDS ORDERED: MELATONIN 5 MG TABLETS PO PRN (17:28)
[2018-08-04] MEDS ORDERED: hydrOXYzine PAMOATE 25 MG CAPSULE (FP) PO PRN (17:28)
[2018-08-04] MEDS ORDERED: MAG HYDROX/AL HYDROX/SIMETH 30 ML UNIT-DOSE CUP PO PRN (17:28)
[2018-08-04] MEDS ORDERED: MENTHOL/PHENOL 1 EACH UD MM PRN (17:28)
[2018-08-04] MEDS ORDERED: MAGNESIUM HYDROX 2400MG/30ML ORAL SUSPENSION 30 ML CUP PO PRN (17:28)
[2018-08-04] MEDS ORDERED: MAGNESIUM CITRATE 300 ML BOTTLE PO PRN (17:28)
[2018-08-04] MEDS ORDERED: ACETAMINOPHEN 325 MG TABLET (FP) PO PRN (17:28)
[2018-08-04] MEDS ORDERED: IBUPROFEN 400 MG TABLET (FP) PO PRN (17:28)
[2018-08-04] MEDS: diazePAM 5 MG TABLET PO PRN (18:42)
[2018-08-04] MEDS: THIAMINE HCL 100 MG TABLET (FP) PO SCH (22:18)
[2018-08-04] MEDS: METHOCARBAMOL 500 MG TABLET PO PRN (22:18)
[2018-08-04] MEDS: diazePAM 5 MG TABLET PO SCH (22:18)
[2018-08-04] MEDS: NICOTINE POLACRILEX 4 MG GUM BUC PRN (22:20)
[2018-08-05] MEDS: NICOTINE POLACRILEX 4 MG GUM BUC PRN ×4 (01:31→22:18)
[2018-08-05] MEDS: diazePAM 5 MG TABLET PO PRN ×3 (01:31→16:42)
[2018-08-05] MEDS ORDERED: METHADONE HCL 40 MG DISPERSABLE TABLET ONE (04:21)
[2018-08-05] MEDS ORDERED: METHADONE HCL 10 MG TABLET (FOR DETOX USE ONLY) ONE (04:22)
[2018-08-05] MEDS: diazePAM 5 MG TABLET PO SCH ×3 (05:48→22:15)
[2018-08-05] MEDS: ACETAMINOPHEN 325 MG TABLET (FP) PO PRN (05:50)
[2018-08-05] MEDS ORDERED: METHADONE 120 MG, METHADONE (DETOX) 20 MG PO ONE (06:00)
[2018-08-05] MEDS ORDERED: METHADONE HCL 10 MG TABLET PO ONE (06:00)
[2018-08-05] MEDS: PRENATAL VITAMINS W/ FOLIC ACID TABLET (FP) PO SCH (10:12)
[2018-08-05 11:08] LABS: ALBUMIN 3.4 g/dl (3.4-5.0); ALK PHOS 61 U/L (45-117); ANION GAP 6 MMOL/L (8-16); BILIRUBIN,TOTAL 0.3 mg/dL (0.2-1); BLOOD UREA NITROGEN 18 mg/dL (7-18); CALCIUM 7.9 mg/dL (8.5-10.1); CHLORIDE 102 mmol/L (98-107); CO2 30 mmol/L (21-32); CREATININE 1.2 mg/dL (0.55-1.3); GLUCOSE,RANDOM 84 mg/dL (74-106); SGOT/AST 15 U/L (15-37); SGPT/ALT 19 U/L (13-61); SODIUM 138 mmol/L (136-145); TOT PROT 6.3 g/dl (6.4-8.2)
[2018-08-05 11:18] LABS: HEMATOCRIT 37.1 % (35.4-49); HEMOGLOBIN 12.9 GM/dL (11.7-16.9); MCH 31.1 pg (25.7-33.7); MCHC 34.9 g/dl (32.0-35.9); MEAN CELL VOLUME 89.2 fl (80-96); MEAN PLT VOLUME 10.3 fl (7.5-11.1); PLATELET COUNT 120 K/MM3 (134-434); RBC 4.17 M/mm3 (4.00-5.60); WHITE BLOOD COUNT 5.5 K/mm3 (4.0-10.0)
--- NOTE | 2018-08-05 13:22 | PN ---
S CIWA - CIWA Score Nausea/Vomitin Muscle Tremors: 2 Anxiety: 3 Agitation: 2 Paroxysmal Sweats: 2 Orientation: 0-Oriented Tacttile Disturbances: 1-Very Mild Itch/Numbness Auditory Disturbances: 0-None Visual Disturbances: 0-None Headache: 0-None Present CIWA-Ar Total Score: 13 S Progress Note (SOAP) Subjective: c/o shakes, nausea, anxiety, body aches Objective: 08/05/18 13:20 Vital Signs Temperature 98.4 F 08/05/18 09:43 Pulse Rate 79 08/05/18 09:43 Respiratory Rate 16 08/05/18 09:43 Blood Pressure 110/66 08/05/18 09:43 O2 Sat by Pulse Oximetry (%) Laboratory Last Values WBC 5.5 K/mm3 (4.0-10.0) 08/05/18 07:35 RBC 4.17 M/mm3 (4.00-5.60) 08/05/18 07:35 Hgb 12.9 GM/dL (11.7-16.9) 08/05/18 07:35 Hct 37.1 % (35.4-49) 08/05/18 07:35 MCV 89.2 fl (80-96) 08/05/18 07:35 MCH 31.1 pg (25.7-33.7) 08/05/18 07:35 MCHC 34.9 g/dl (32.0-35.9) 08/05/18 07:35 RDW 12.0 % (11.9-15.9) 08/05/18 07:35 Plt Count 120 K/MM3 (134-434) L D 08/05/18 07:35 MPV 10.3 fl (7.5-11.1) 08/05/18 07:35 Sodium 138 mmol/L (136-145) 08/05/18 07:35 Potassium 4.0 mmol/L (3.5-5.1) 08/05/18 07:35 Chloride 102 mmol/L (98-107) 08/05/18 07:35 Carbon Dioxide 30 mmol/L (21-32) 08/05/18 07:35 Anion Gap 6 MMOL/L (8-16) L 08/05/18 07:35 BUN 18 mg/dL (7-18) 08/05/18 07:35 Creatinine 1.2 mg/dL (0.55-1.3) 08/05/18 07:35 Creat Clearance w eGFR 70.16 (>60) 08/05/18 07:35 Random Glucose 84 mg/dL (74-106) 08/05/18 07:35 Calcium 7.9 mg/dL (8.5-10.1) L 08/05/18 07:35 Total Bilirubin 0.3 mg/dL (0.2-1) 08/05/18 07:35 AST 15 U/L (15-37) 08/05/18 07:35 ALT 19 U/L (13-61) 08/05/18 07:35 Alkaline Phosphatase 61 U/L (45-117) 08/05/18 07:35 Total Protein 6.3 g/dl (6.4-8.2) L 08/05/18 07:35 Albumin 3.4 g/dl (3.4-5.0) 08/05/18 07:35 RPR Titer Nonreactive (NONREACTIVE) 08/05/18 07:35 labs noted Assessment: 08/05/18 13:20 AO x3, no distress + diaphoresis + bodyaches full rom, ambulatory Plan: increase po fluids continue detox continue to monitor
[2018-08-05] MEDS: GABAPENTIN 100 MG CAPSULE (FP) PO SCH ×2 (13:58→22:16)
[2018-08-05] MEDS: BISMUTH SUBSALICYLATE 524 MG/30 ML UD PO PRN (20:29)
[2018-08-05] MEDS: THIAMINE HCL 100 MG TABLET (FP) PO SCH (22:15)
[2018-08-05] MEDS: METHOCARBAMOL 500 MG TABLET PO PRN (22:16)
[2018-08-06] MEDS: ACETAMINOPHEN 325 MG TABLET (FP) PO PRN (05:46)
[2018-08-06] MEDS: GABAPENTIN 100 MG CAPSULE (FP) PO SCH ×3 (05:46→21:05)
[2018-08-06] MEDS: diazePAM 5 MG TABLET PO PRN ×4 (05:46→23:27)
[2018-08-06] MEDS: NICOTINE POLACRILEX 4 MG GUM BUC PRN ×4 (05:49→21:07)
[2018-08-06] MEDS ORDERED: METHADONE HCL 10 MG TABLET PO ONE (09:27)
[2018-08-06] MEDS ORDERED: METHADONE 120 MG, METHADONE 20 MG PO ONE (09:35)
[2018-08-06] MEDS ORDERED: METHADONE HCL 40 MG DISPERSABLE TABLET ONE (09:48)
[2018-08-06] MEDS ORDERED: METHADONE HCL 10 MG TABLET ONE (09:49)
--- NOTE | 2018-08-06 10:07 | PN ---
[facility] CIWA - CIWA Score Nausea/Vomitin-No Nausea/No Vomiting Muscle Tremors: 3 Anxiety: 3 Agitation: 3 Paroxysmal Sweats: 3 Orientation: 0-Oriented Tacttile Disturbances: 0-None Auditory Disturbances: 0-None Visual Disturbances: 0-None Headache: 1-Very Mild CIWA-Ar Total Score: 13 S Progress Note (SOAP) Subjective: agitation sweats chills body aches nausea Objective: 08/06/18 10:07 Vital Signs Temperature 98.4 F 08/06/18 09:21 Pulse Rate 71 08/06/18 09:21 Respiratory Rate 18 08/06/18 09:21 Blood Pressure 103/55 L 08/06/18 09:21 O2 Sat by Pulse Oximetry (%) Laboratory Tests 08/05/18 08/05/18 08/05/18 07:35 07:35 07:35 WBC 5.5 RBC 4.17 Hgb 12.9 Hct 37.1 MCV 89.2 MCH 31.1 MCHC 34.9 RDW 12.0 Plt Count 120 L D MPV 10.3 Sodium 138 Potassium 4.0 Chloride 102 Carbon Dioxide 30 Anion Gap 6 L BUN 18 Creatinine 1.2 Creat Clearance w eGFR 70.16 Random Glucose 84 Calcium 7.9 L Total Bilirubin 0.3 AST 15 ALT 19 Alkaline Phosphatase 61 Total Protein 6.3 L Albumin 3.4 RPR Titer Nonreactive aaox3 ambulating no acute distress Assessment: 08/06/18 10:07 withdrawal sx Plan: continue detox increase fluids zofran sl prn
[2018-08-06] MEDS: diazePAM 5 MG TABLET PO SCH ×2 (10:08→21:06)
[2018-08-06] MEDS: PRENATAL VITAMINS W/ FOLIC ACID TABLET (FP) PO SCH (10:09)
[2018-08-06] MEDS: THIAMINE HCL 100 MG TABLET (FP) PO SCH (21:05)
[2018-08-06] MEDS: BISMUTH SUBSALICYLATE 524 MG/30 ML UD PO PRN (23:28)
[2018-08-07] MEDS ORDERED: METHADONE HCL 40 MG DISPERSABLE TABLET ONE (05:28)
[2018-08-07] MEDS ORDERED: METHADONE HCL 10 MG TABLET ONE (05:29)
[2018-08-07] MEDS: GABAPENTIN 100 MG CAPSULE (FP) PO SCH ×2 (05:41→14:08)
[2018-08-07] MEDS ORDERED: METHADONE HCL 40 MG DISPERSABLE TABLET PO SCH (06:00)
[2018-08-07] MEDS ORDERED: METHADONE 120 MG, METHADONE 20 MG PO SCH (06:00)
[2018-08-07] MEDS ORDERED: diazePAM 5 MG TABLET PO SCH (06:00)
[2018-08-07] MEDS: diazePAM 5 MG TABLET PO PRN (07:41)
--- NOTE | 2018-08-07 08:53 | DS ---
[facility] Detox Discharge Summary Admission Date: 08/04/18 Discharge Date: 08/07/18 - History Present History: Alcohol Dependence, Cocaine Dependence, Sedative Dependence, MMTP - Physical Exam Results Vital Signs: Vital Signs Temperature 98.2 F 08/07/18 06:00 Pulse Rate 64 08/07/18 06:00 Respiratory Rate 18 08/07/18 06:00 Blood Pressure 109/60 08/07/18 06:00 O2 Sat by Pulse Oximetry (%) - Treatment Hospital Course: Detox Protocol Followed, Detoxed Safely, Responded well, Discharged Condition Good, Rehab Referral Accepted - Medication Discharge Medications: Ambulatory Orders Methadone [Dolophine -] 140 mg PO DAILY 11/13/17 - Diagnosis (1) History of chest pain Current Visit: Yes Status: Acute (2) Alcohol dependence with uncomplicated withdrawal Current Visit: Yes Status: Chronic (3) Atypical toothache Current Visit: No Status: Acute (4) Dehydration Current Visit: No Status: Acute (5) Drug-induced mood disorder Current Visit: No Status: Acute (6) Insomnia Current Visit: No Status: Acute (7) Mood disorder Current Visit: No Status: Acute (8) Nicotine dependence Current Visit: Yes Status: Chronic Qualifiers: Nicotine product type: cigarettes Substance use status: uncomplicated Qualified Code(s): F17.210 - Nicotine dependence, cigarettes, uncomplicated (9) Sedative, hypnotic or anxiolytic dependence with withdrawal, uncomplicated Current Visit: Yes Status: Acute (10) Cocaine dependence Current Visit: Yes Status: Chronic Qualifiers: Substance use status: uncomplicated Qualified Code(s): F14.20 - Cocaine dependence, uncomplicated (11) Depression Current Visit: No Status: Chronic (12) History of seizure Current Visit: No Status: Chronic (13) Methadone maintenance therapy patient Current Visit: Yes Status: Chronic (14) PTSD (post-traumatic stress disorder) Current Visit: No Status: Chronic (15) Anxiety and depression Current Visit: No Status: Suspected (16) Acute MD Current Visit: No Status: Inactive - AMA Did Patient Leave Against Medical Advice: No (referred to [facility] inpatient rehab.)
[2018-08-07 09:34] VITALS: BP 109/54; PULSE 71; TEMP 96.9
[2018-08-07] MEDS: PRENATAL VITAMINS W/ FOLIC ACID TABLET (FP) PO SCH (10:28)
[2018-08-07] MEDS: NICOTINE POLACRILEX 4 MG GUM BUC PRN (10:29)
== END 2018-08-07 14:27 | disposition home or self-care (01) | DRG 773 ==
LOC: YASAS 14:55 → Y6N 17:41
PROVIDERS: ADMIT Surgery; ATTEND Surgery
PROC: HZ2ZZZZ Detoxification Services for Substance Abuse Treatment (ICD-10-PCS; principal; 2018-08-04)
DX: F10.230 Alcohol dependence with withdrawal, uncomplicated (principal); F13.230 Sedative, hypnotic or anxiolytic dependence with withdrawal, uncomplicated; F14.20 Cocaine dependence, uncomplicated; F11.20 Opioid dependence, uncomplicated; F17.210 Nicotine dependence, cigarettes, uncomplicated; F41.8 Other specified anxiety disorders; F32.9 Major depressive disorder, single episode, unspecified; F43.10 Post-traumatic stress disorder, unspecified; F19.24 Other psychoactive substance dependence with psychoactive substance-induced mood disorder; F39 Unspecified mood [affective] disorder; I25.10 Atherosclerotic heart disease of native coronary artery without angina pectoris; I25.2 Old myocardial infarction; R07.9 Chest pain, unspecified; K08.89 Other specified disorders of teeth and supporting structures; E86.0 Dehydration; Z87.898 Personal history of other specified conditions; Z86.69 Personal history of other diseases of the nervous system and sense organs
CPT/HCPCS: 36415; 80053; 85027; 86593

== ENCOUNTER 2018-10-23 11:31 | Inpatient (IN) | payer OTHER ==
[2018-10-23 12:05] VITALS: BMI 30.5
[2018-10-23] MEDS ORDERED: MAG HYDROX/AL HYDROX/SIMETH 30 ML UNIT-DOSE CUP PO PRN (14:35)
[2018-10-23] MEDS ORDERED: ACETAMINOPHEN 325 MG TABLET (FP) PO PRN ×2 (14:35)
[2018-10-23] MEDS ORDERED: BISMUTH SUBSALICYLATE 262 MG/15 ML BTL PO PRN (14:35)
[2018-10-23] MEDS ORDERED: METHOCARBAMOL 500 MG TABLET PO PRN (14:35)
[2018-10-23] MEDS ORDERED: IBUPROFEN 400 MG TABLET (FP) PO PRN (14:35)
[2018-10-23] MEDS ORDERED: MAGNESIUM CITRATE 300 ML BOTTLE PO PRN (14:35)
[2018-10-23] MEDS ORDERED: MENTHOL/PHENOL 1 EACH UD MM PRN (14:35)
[2018-10-23] MEDS ORDERED: MAGNESIUM HYDROX 2400MG/30ML ORAL SUSPENSION 30 ML CUP PO PRN (14:35)
--- NOTE | 2018-10-23 14:35 | HP ---
CIWA Score Nausea/Vomitin Muscle Tremors: 2 Anxiety: 3 Agitation: 0-Normal Activity Paroxysmal Sweats: 3 Orientation: 1-Uncertain about Date Tacttile Disturbances: 1-Very Mild Itch/Numbness Auditory Disturbances: 0-None Visual Disturbances: 1-Very Mild Sensitivity Headache: 2-Mild CIWA-Ar Total Score: 16 - Admission Criteria OASAS Guidelines: Admission for Medically Managed Detox: Requires at least one of the followin. CIWA greater than 12 2. Seizures within the past 24 hours 3. Delirium tremens within the past 24 hours 4. Hallucinations within the past 24 hours 5. Acute intervention needed for co occurring medical disorder 6. Acute intervention needed for co occurring psychiatric disorder 7. Severe withdrawal that cannot be handled at a lower level of care (continued vomiting, continued diarrhea, abnormal vital signs) requiring intravenous medication and/or fluids 8. Patient presents the following: CIWA greater than 12 Admission Criteria Met: Admission criteria met Admission ROS S - [facility] Chief Complaint: benzo withdrawal symptoms Allergies/Adverse Reactions: Allergies Allergy/AdvReac Type Severity Reaction Status Date / Time mushroom Allergy Severe Difficulty Verified 10/23/18 11:59 Breathing Penicillins Allergy Intermediate Swelling Verified 10/23/18 11:59 No Known Drug Allergies Allergy Verified 10/23/18 11:59 History of Present Illness: Patient is a 33 year old male with xanax and klonopin dependence seeking detox, hx of multiple admissions d/t relapse, c/o of withdrawal symptom. Last detox [facility] about two months ago. Reports hx of benzo withdrawal seizure, with last episode 08/2017, denies any other medical problems. Psych hx of anxiety. Denies SI/HI at this time. Patient is connected to [facility] for recovery on methadone maintenance 130 mg, last medicated 10/22/18. l Exam Limitations: No Limitations - Ebola screening Have you traveled outside of the country in the last 21 days: No (N) Have you had contact with anyone from an Ebola affected area: No Do you have a fever: No - Review of Systems Constitutional: Chills EENT: reports: No Symptoms Reported Respiratory: reports: No Symptoms reported Cardiac: reports: Lightheadedness GI: reports: Nausea, Poor Appetite, Poor Fluid Intake, Abdominal cramping : reports: No Symptoms Reported Musculoskeletal: reports: Other (bodyaches) Neuro: reports: Headache, Tremors, Weakness Endocrine: reports: Excessive Sweating Hematology: reports: No Symptoms Reported Psychiatric: reports: Orientated x3, Anxious Other Systems: Reviewed and Negative Patient History - Patient Medical History Hx Anemia: No Hx Asthma: No Hx Chronic Obstructive Pulmonary Disease (COPD): No Hx Cancer: No Hx Cardiac Disorders: No Hx Congestive Heart Failure: No Hx Hypertension: No Hx Hypercholesterolemia: No Hx Pacemaker: No HX Cerebrovascular Accident: No Hx Seizures: Yes (drug related-last episode was in 08/2017) Hx Dementia: No Hx Diabetes: No Hx Gastrointestinal Disorders: No Hx Liver Disease: No Hx Genitourinary Disorders: No Hx Sexually Transmitted Disorders: No Hx Renal Disease (ESRD): No Hx Thyroid Disease: No Hx Human Immunodeficiency Virus (HIV): No (last 05/17/18 negative) Hx Hepatitis C: No Hx Depression: No Hx Suicide Attempt: No Hx Bipolar Disorder: No Hx Schizophrenia: No - Patient Surgical History Past Surgical History: No Hx Neurologic Surgery: No Hx Cataract Extraction: No Hx Cardiac Surgery: No Hx Lung Surgery: No Hx Breast Surgery: No Hx Breast Biopsy: No Hx Abdominal Surgery: No Hx Appendectomy: No Hx Cholecystectomy: No Hx Genitourinary Surgery: No Hx Section: No Hx Orthopedic Surgery: No Anesthesia Reaction: No - PPD History Date: 07/13/17 Results: 0 mm - Smoking Cessation Smoking history: Current every day smoker Have you smoked in the past 12 months: Yes Aproximately how many cigarettes per day: 20 If you are a former smoker, when did you quit?: 4 MONTHS AGO. Cigars Per Day: 0 Hx Chewing Tobacco Use: No Initiated information on smoking cessation: Yes 'Breaking Loose' booklet given: 10/23/18 - Substance & Tx. History Hx Alcohol Use: No Hx Substance Use: Yes Substance Use Type: Tranquilizers Hx Substance Use Treatment: Yes (detox [facility] about two months ago ) - Substances abused Alprazolam (Xanax) Other (specify): 2MG Substance route: Oral Frequency: Daily Amount used: 10MG Age of first use: 20 Date of last use: 10/22/18 Benzodiazepine (Klonopin) Other (specify): 2MG Substance route: Oral Frequency: 1-2 times per week Amount used: 20 TABS Age of first use: 20 Date of last use: 10/21/18 Family Disease History - Family Disease History Family Disease History: Other: Father (alive and well), Mother (alive, and well) Admission Physical Exam [facility] - Vital Signs Vital Signs: Vital Signs - 24 hr 10/23/18 11:59 Pulse Rate 76 Respiratory 18 Rate Blood Pressure 127/75 - Physical General Appearance: Yes: Appropriately Dressed, Mild Distress, Obese, Sweating, Anxious HEENTM: Yes: Hearing grossly Normal, Normal ENT Inspection, Normocephalic, Normal Voice, CUCA, Pharynx Normal, Tm's normal Respiratory: Yes: Chest Non-Tender, Lungs Clear, Normal Breath Sounds, No Respiratory Distress, No Accessory Muscle Use Neck: Yes: Within Normal Limits Breast: Yes: Breast Exam Deferred Cardiology: Yes: Regular Rhythm, Regular Rate Abdominal: Yes: Normal Bowel Sounds, Non Tender, Flat, Soft Genitourinary: Yes: Within Normal Limits Back: Yes: Normal Inspection Musculoskeletal: Yes: full range of Motion, Gait Steady, Pelvis Stable, Back pain Extremities: Yes: Normal Capillary Refill, Normal Inspection, Normal Range of Motion 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: cement block maker II-XII NML intact, Fully Oriented, Alert, Motor Strength 5/5, Depressed Affect Integumentary: Yes: Normal Color, Warm, Diaphoresis Lymphatic: Yes: Within Normal Limits - Diagnostic (1) Opioid dependence on agonist therapy Current Visit: Yes Status: Acute (2) Sedative, hypnotic or anxiolytic dependence with withdrawal, uncomplicated Current Visit: Yes Status: Acute (3) History of seizure Current Visit: Yes Status: Chronic Comment: REPORTED R/T WITHDRAWALS (4) Nicotine dependence Current Visit: Yes Status: Chronic Qualifiers: Nicotine product type: cigarettes Substance use status: uncomplicated Qualified Code(s): F17.210 - Nicotine dependence, cigarettes, uncomplicated Cleared for Admission [facility] - Detox or Rehab [facility] Level of Care: Medically Managed Detox Regimen/Protocol: Valium Breathalyzer - Breathalyzer Breathalyzer: 0 Urine Drug Screen - Test Device Lot number: [id number] Expiration date: 07/19/20 - Control Is test valid?: Yes - Results Drug screen NEGATIVE: No Urine drug screen results: CAROLYN-Cocaine, FEN-Fentanyl, MOP-Opiates, OXY-Oxycodone , MTD-Methadone, BZO-Benzodiazepines Inpatient Rehab Admission - Rehab Decision to Admit Inpatient rehab admission?: No
[2018-10-23] MEDS ORDERED: METHADONE HCL 10 MG TABLET PO ONE ×2 (15:18)
--- NOTE | 2018-10-23 15:24 | PN ---
[facility] Progress Note Note: MMTP : [facility] on methadone 130 mg last dose 10/22/18 Dose verified with Jomar Lu RN by Genoveva Benjamin RN Dose for today ordered continue to monitor
[2018-10-23] MEDS ORDERED: METHADONE 120 MG, METHADONE 10 MG PO ONE (15:45)
[2018-10-23] MEDS ORDERED: METHADONE HCL 40 MG DISPERSABLE TABLET ONE (16:01)
[2018-10-23] MEDS ORDERED: METHADONE HCL 10 MG TABLET ONE (16:01)
[2018-10-23] MEDS: NICOTINE POLACRILEX 2 MG GUM BUC PRN ×2 (16:04→21:35)
[2018-10-23] MEDS: diazePAM 5 MG TABLET PO PRN (16:09)
[2018-10-23] MEDS: METHADONE 120 MG, METHADONE 10 MG PO SCH (17:00)
[2018-10-23 19:18] LABS: PH,URINE 5.5 (5.0-8.0); URINE APPEARANCE TURBID; URINE BILIRUBIN NEGATIVE (NEGATIVE); URINE COLOR YELLOW; URINE GLUCOSE (UA) NEGATIVE (NEGATIVE); URINE KETONE NEGATIVE (NEGATIVE); URINE LEUK ESTERASE NEGATIVE (NEGATIVE); URINE NITRITE NEGATIVE (NEGATIVE); URINE PROTEIN NEGATIVE (NEGATIVE); URINE UROBILINOGEN 0.2 mg/dL (0.2-1.0)
[2018-10-23] MEDS: THIAMINE HCL 100 MG TABLET (FP) PO SCH (21:32)
[2018-10-23] MEDS: MELATONIN 5 MG TABLETS PO PRN (21:32)
[2018-10-23] MEDS: diazePAM 5 MG TABLET PO SCH (21:32)
[2018-10-24] MEDS: diazePAM 5 MG TABLET PO PRN ×5 (00:34→20:46)
[2018-10-24] MEDS: NICOTINE POLACRILEX 2 MG GUM BUC PRN ×7 (00:35→23:04)
[2018-10-24] MEDS ORDERED: METHADONE HCL 40 MG DISPERSABLE TABLET ONE (04:49)
[2018-10-24] MEDS ORDERED: METHADONE HCL 10 MG TABLET ONE (04:49)
[2018-10-24] MEDS: diazePAM 5 MG TABLET PO SCH ×3 (05:20→23:03)
[2018-10-24] MEDS: METHADONE 120 MG, METHADONE 10 MG PO SCH (05:20)
[2018-10-24] MEDS ORDERED: METHADONE HCL 10 MG TABLET PO SCH (06:00)
[2018-10-24] MEDS: NICOTINE 14 MG/24 HOURS TOPICAL PATCH TD SCH (10:30)
[2018-10-24] MEDS: PRENATAL VITAMINS W/ FOLIC ACID TABLET (FP) PO SCH (10:30)
--- NOTE | 2018-10-24 11:18 | PN ---
S CIWA - CIWA Score Nausea/Vomitin-Mild Nausea/No Vomiting Muscle Tremors: 2 Anxiety: 4-Mod. Anxious/Guarded Agitation: 3 Paroxysmal Sweats: 1-Minimal Palms Moist Orientation: 0-Oriented Tacttile Disturbances: 1-Very Mild Itch/Numbness Auditory Disturbances: 0-None Visual Disturbances: 0-None Headache: 0-None Present CIWA-Ar Total Score: 12 B[facility] Progress Note (SOAP) Subjective: received methadone 130 mg po today feeling "fine" anxious discuss chronic antibiotic usage Objective: 10/24/18 11:16 Vital Signs Temperature 98.6 F 10/24/18 09:40 Pulse Rate 68 10/24/18 09:40 Respiratory Rate 18 10/24/18 09:40 Blood Pressure 101/59 L 10/24/18 09:40 O2 Sat by Pulse Oximetry (%) Laboratory Last Values Urine Color Yellow 10/23/18 15:07 Urine Appearance Turbid 10/23/18 15:07 Urine pH 5.5 (5.0-8.0) 10/23/18 15:07 Ur Specific [place] 1.035 (1.010-1.035) 10/23/18 15:07 Urine Protein Negative (NEGATIVE) 10/23/18 15:07 Urine Glucose (UA) Negative (NEGATIVE) 10/23/18 15:07 Urine Ketones Negative (NEGATIVE) 10/23/18 15:07 Urine Blood Negative (NEGATIVE) 10/23/18 15:07 Urine Nitrite Negative (NEGATIVE) 10/23/18 15:07 Urine Bilirubin Negative (NEGATIVE) 10/23/18 15:07 Urine Urobilinogen 0.2 mg/dL (0.2-1.0) 10/23/18 15:07 Ur Leukocyte Esterase Negative (NEGATIVE) 10/23/18 15:07 10/24/18 11:17 lab pending Assessment: 10/24/18 11:17 benzo withdrawal sx Plan: continue benzo detox with valium
[2018-10-24 12:46] LABS: HEMATOCRIT 42.2 % (35.4-49); HEMOGLOBIN 13.9 GM/dL (11.7-16.9); MCH 29.8 pg (25.7-33.7); MCHC 32.8 g/dl (32.0-35.9); MEAN CELL VOLUME 90.8 fl (80-96); MEAN PLT VOLUME 10.8 fl (7.5-11.1); PLATELET COUNT 162 K/MM3 (134-434); RBC 4.65 M/mm3 (4.00-5.60); RDW 12.2 % (11.9-15.9); WHITE BLOOD COUNT 4.4 K/mm3 (4.0-10.0)
[2018-10-24 12:48] LABS: ALBUMIN 3.7 g/dl (3.4-5.0); BILIRUBIN,TOTAL 0.3 mg/dL (0.2-1); CALCIUM 8.8 mg/dL (8.5-10.1); CREATININE 0.9 mg/dL (0.55-1.3); POTASSIUM 4.9 mmol/L (3.5-5.1)
[2018-10-24] MEDS: THIAMINE HCL 100 MG TABLET (FP) PO SCH (23:02)
[2018-10-24] MEDS: MELATONIN 5 MG TABLETS PO PRN (23:02)
[2018-10-25] MEDS: diazePAM 5 MG TABLET PO PRN ×5 (02:07→20:58)
[2018-10-25] MEDS ORDERED: METHADONE HCL 40 MG DISPERSABLE TABLET ONE (05:31)
[2018-10-25] MEDS ORDERED: METHADONE HCL 10 MG TABLET ONE (05:31)
[2018-10-25] MEDS: METHADONE 120 MG, METHADONE 10 MG PO SCH (06:02)
[2018-10-25] MEDS: NICOTINE POLACRILEX 2 MG GUM BUC PRN ×2 (06:07→10:08)
[2018-10-25] MEDS: PRENATAL VITAMINS W/ FOLIC ACID TABLET (FP) PO SCH (10:06)
[2018-10-25] MEDS: diazePAM 5 MG TABLET PO SCH ×2 (10:06→22:38)
[2018-10-25] MEDS: NICOTINE 14 MG/24 HOURS TOPICAL PATCH TD SCH (11:25)
[2018-10-25] MEDS: NICOTINE POLACRILEX 4 MG GUM BUC PRN ×2 (12:04→20:59)
--- NOTE | 2018-10-25 16:00 | PN ---
S CIWA - CIWA Score Nausea/Vomitin-No Nausea/No Vomiting Muscle Tremors: 4-Moderate,w/Arms Extend Anxiety: 4-Mod. Anxious/Guarded Agitation: 3 Paroxysmal Sweats: 3 Orientation: 0-Oriented Tacttile Disturbances: 2-Mild Itch/Numbness/Burn Auditory Disturbances: 0-None Visual Disturbances: 2-Mild Sensitivity Headache: 0-None Present CIWA-Ar Total Score: 18 BHS Progress Note (SOAP) Subjective: Body Aches, Tremors, Sweating, Anxious. Objective: PATIENT A & O X 3, OBSERVED AMBULATING ON UNIT UNASSISTED. IN NO ACUTE DISTRESS. 10/25/18 15:59 Vital Signs Temperature 96.0 F L 10/25/18 14:02 Pulse Rate 70 10/25/18 14:02 Respiratory Rate 20 10/25/18 14:02 Blood Pressure 130/62 10/25/18 14:02 O2 Sat by Pulse Oximetry (%) Laboratory Tests 10/23/18 10/24/18 10/24/18 15:07 09:15 09:15 WBC 4.4 RBC 4.65 Hgb 13.9 Hct 42.2 MCV 90.8 MCH 29.8 MCHC 32.8 RDW 12.2 Plt Count 162 D MPV 10.8 Sodium 140 Potassium 4.9 Chloride 103 Carbon Dioxide 31 Anion Gap 5 L BUN 20 H Creatinine 0.9 Est GFR (CKD-EPI)AfAm 130.52 Est GFR (CKD-EPI)NonAf 112.62 Random Glucose 80 Calcium 8.8 Total Bilirubin 0.3 AST 25 ALT 39 Alkaline Phosphatase 74 Total Protein 7.0 Albumin 3.7 Urine Color Yellow Urine Appearance Turbid Urine pH 5.5 Ur Specific [place] 1.035 Urine Protein Negative Urine Glucose (UA) Negative Urine Ketones Negative Urine Blood Negative Urine Nitrite Negative Urine Bilirubin Negative Urine Urobilinogen 0.2 Ur Leukocyte Esterase Negative LABS NOTED. Assessment: 10/25/18 16:00 WITHDRAWAL SYMPTOMS. Plan: CONTINUE DETOX. INCREASE DAILY PO FLUID / WATER INTAKE. DUE TO CURRENT SEVERITY OF WITHDRAWAL / DETOX SYMPTOMS REPORTED BY PATIENT, DETOX MEDICATION REGIMEN (VALIUM) EXTENDED BY ONE DAY LONGER THAN PREVIOUSLY SCHEDULED TO ALLOW FOR BETTER RECOVERY FOR PATIENT.
[2018-10-25] MEDS: MELATONIN 5 MG TABLETS PO PRN (22:38)
[2018-10-25] MEDS: THIAMINE HCL 100 MG TABLET (FP) PO SCH (22:38)
[2018-10-26] MEDS: diazePAM 5 MG TABLET PO PRN ×3 (01:07→12:30)
[2018-10-26] MEDS: NICOTINE POLACRILEX 4 MG GUM BUC PRN ×5 (01:08→21:16)
[2018-10-26] MEDS ORDERED: METHADONE HCL 10 MG TABLET ONE (05:11)
[2018-10-26] MEDS ORDERED: METHADONE HCL 40 MG DISPERSABLE TABLET ONE (05:11)
[2018-10-26] MEDS: METHADONE 120 MG, METHADONE 10 MG PO SCH (05:54)
[2018-10-26] MEDS ORDERED: diazePAM 5 MG TABLET PO SCH (06:00)
[2018-10-26] MEDS: NICOTINE 14 MG/24 HOURS TOPICAL PATCH TD SCH (10:40)
[2018-10-26] MEDS: diazePAM 5 MG TABLET PO SCH ×2 (10:40→21:16)
[2018-10-26] MEDS: PRENATAL VITAMINS W/ FOLIC ACID TABLET (FP) PO SCH (10:41)
--- NOTE | 2018-10-26 14:27 | PN ---
[facility] CIWA - CIWA Score Nausea/Vomitin-No Nausea/No Vomiting Muscle Tremors: 3 Anxiety: 4-Mod. Anxious/Guarded Agitation: 3 Paroxysmal Sweats: 2 Orientation: 0-Oriented Tacttile Disturbances: 2-Mild Itch/Numbness/Burn Auditory Disturbances: 0-None Visual Disturbances: 2-Mild Sensitivity Headache: 0-None Present CIWA-Ar Total Score: 16 S Progress Note (SOAP) Subjective: Body Aches, Anxious, Restless, Sweating, Tremors, Interrupted Sleep. Objective: PATIENT A & O X 3, OBSERVED AMBULATING ON UNIT UNASSISTED. IN NO ACUTE DISTRESS. 10/26/18 14:28 Vital Signs Temperature 98.1 F 10/26/18 13:30 Pulse Rate 72 10/26/18 13:30 Respiratory Rate 18 10/26/18 13:30 Blood Pressure 108/75 10/26/18 13:30 O2 Sat by Pulse Oximetry (%) Laboratory Tests 10/23/18 10/24/18 10/24/18 15:07 09:15 09:15 WBC 4.4 RBC 4.65 Hgb 13.9 Hct 42.2 MCV 90.8 MCH 29.8 MCHC 32.8 RDW 12.2 Plt Count 162 D MPV 10.8 Sodium 140 Potassium 4.9 Chloride 103 Carbon Dioxide 31 Anion Gap 5 L BUN 20 H Creatinine 0.9 Est GFR (CKD-EPI)AfAm 130.52 Est GFR (CKD-EPI)NonAf 112.62 Random Glucose 80 Calcium 8.8 Total Bilirubin 0.3 AST 25 ALT 39 Alkaline Phosphatase 74 Total Protein 7.0 Albumin 3.7 Urine Color Yellow Urine Appearance Turbid Urine pH 5.5 Ur Specific [place] 1.035 Urine Protein Negative Urine Glucose (UA) Negative Urine Ketones Negative Urine Blood Negative Urine Nitrite Negative Urine Bilirubin Negative Urine Urobilinogen 0.2 Ur Leukocyte Esterase Negative LABS NOTED. Assessment: 10/26/18 14:28 WITHDRAWAL SYMPTOMS. Plan: CONTINUE DETOX. PATIENT REPORTS THAT CURRENT WITHDRAWAL / DETOX SYMPTOMS ARE PERSISTING AND ARE CONTINUING TO BE RELATIVELY SEVERE. DUE TO SEVERITY OF CURRENT WITHDRAL / DETOX SYMPTOMS AND DUE TO CONCERN OVER BEING ABLE TO GET BACK TO M.M.T[facility]. PROGRAM PRIOR TO CLOSING TOMORROW (10/27/2018 ) AM, PATIENT PERMITTED TO CONTINUE DETOX UNTIL 10/27/2018, AT WHICH TIME HE WILL BE DISCHARGED FROM DETOX UNIT. X 1 DOSE OF VALIUM ORDERED FOR 1800 THIS EVENING FOR INTERIM MANAGEMENT ( BETWEEN SCHEDULED DOSES OF VALIUM) OF SEVERE WITHDRAWAL SYMPTOMS.
[2018-10-26] MEDS ORDERED: diazePAM 5 MG TABLET PO ONE (18:00)
[2018-10-26] MEDS: THIAMINE HCL 100 MG TABLET (FP) PO SCH (21:16)
[2018-10-26] MEDS: MELATONIN 5 MG TABLETS PO PRN (21:16)
[2018-10-27] MEDS ORDERED: METHADONE HCL 40 MG DISPERSABLE TABLET ONE (04:47)
[2018-10-27] MEDS ORDERED: METHADONE HCL 10 MG TABLET ONE (04:47)
[2018-10-27] MEDS: METHADONE 120 MG, METHADONE 10 MG PO SCH (05:25)
[2018-10-27] MEDS ORDERED: diazePAM 5 MG TABLET PO SCH (06:00)
[2018-10-27] MEDS: diazePAM 5 MG TABLET PO SCH ×2 (10:29→21:55)
[2018-10-27] MEDS: NICOTINE 14 MG/24 HOURS TOPICAL PATCH TD SCH (10:29)
[2018-10-27] MEDS: PRENATAL VITAMINS W/ FOLIC ACID TABLET (FP) PO SCH (10:29)
[2018-10-27] MEDS: NICOTINE POLACRILEX 4 MG GUM BUC PRN ×3 (10:30→21:56)
--- NOTE | 2018-10-27 10:45 | PN ---
S CIWA - CIWA Score Nausea/Vomitin-No Nausea/No Vomiting Muscle Tremors: 2 Anxiety: 2 Agitation: 2 Paroxysmal Sweats: 2 Orientation: 0-Oriented Tacttile Disturbances: 0-None Auditory Disturbances: 0-None Visual Disturbances: 0-None Headache: 2-Mild CIWA-Ar Total Score: 10 S Progress Note (SOAP) Subjective: c/o sweats, headache, shakes, and anxiety Objective: 10/27/18 10:48 Vital Signs 10/27/18 10/27/18 10/27/18 03:30 06:10 09:29 Temperature 97.3 F L 97.3 F L Pulse Rate 50 L 77 Respiratory 16 18 18 Rate Blood Pressure 92/61 108/74 Lab Results WBC 4.4 K/mm3 (4.0-10.0) 10/24/18 09:15 RBC 4.65 M/mm3 (4.00-5.60) 10/24/18 09:15 Hgb 13.9 GM/dL (11.7-16.9) 10/24/18 09:15 Hct 42.2 % (35.4-49) 10/24/18 09:15 MCV 90.8 fl (80-96) 10/24/18 09:15 MCHC 32.8 g/dl (32.0-35.9) 10/24/18 09:15 RDW 12.2 % (11.9-15.9) 10/24/18 09:15 Plt Count 162 K/MM3 (134-434) D 10/24/18 09:15 Sodium 140 mmol/L (136-145) 10/24/18 09:15 Potassium 4.9 mmol/L (3.5-5.1) 10/24/18 09:15 Chloride 103 mmol/L (98-107) 10/24/18 09:15 Carbon Dioxide 31 mmol/L (21-32) 10/24/18 09:15 Anion Gap 5 MMOL/L (8-16) L 10/24/18 09:15 BUN 20 mg/dL (7-18) H 10/24/18 09:15 Creatinine 0.9 mg/dL (0.55-1.3) 10/24/18 09:15 Random Glucose 80 mg/dL (74-106) 10/24/18 09:15 Calcium 8.8 mg/dL (8.5-10.1) 10/24/18 09:15 Labs noted. Assessment: 10/27/18 10:48 AOX3, in no respiratory distress, full rom, ambulating in the unit. Withdrawal symptoms. Plan: continue detox
[2018-10-27] MEDS: MELATONIN 5 MG TABLETS PO PRN (21:55)
[2018-10-27] MEDS: THIAMINE HCL 100 MG TABLET (FP) PO SCH (21:55)
[2018-10-28] MEDS ORDERED: METHADONE HCL 10 MG TABLET ONE (04:26)
[2018-10-28] MEDS ORDERED: METHADONE HCL 40 MG DISPERSABLE TABLET ONE (04:26)
[2018-10-28] MEDS: METHADONE 120 MG, METHADONE 10 MG PO SCH (05:34)
[2018-10-28] MEDS: NICOTINE POLACRILEX 4 MG GUM BUC PRN (05:37)
[2018-10-28] MEDS ORDERED: diazePAM 5 MG TABLET PO SCH (06:00)
[2018-10-28 09:14] VITALS: BP 131/83; PULSE 71; TEMP 98
[2018-10-28] MEDS: NICOTINE 14 MG/24 HOURS TOPICAL PATCH TD SCH (09:23)
[2018-10-28] MEDS: PRENATAL VITAMINS W/ FOLIC ACID TABLET (FP) PO SCH (09:23)
--- NOTE | 2018-10-28 11:58 | DS ---
[facility] Detox Discharge Summary Admission Date: 10/23/18 Discharge Date: 10/28/18 - History Present History: Alcohol Dependence Additional Comments: 33 years old male admitted on 10/23/18 for alcohol withdrawal stabilization completed detox regimen [facility] - Physical Exam Results Vital Signs: Vital Signs Temperature 98.0 F 10/28/18 09:13 Pulse Rate 71 10/28/18 09:13 Respiratory Rate 18 10/28/18 09:13 Blood Pressure 131/83 10/28/18 09:13 O2 Sat by Pulse Oximetry (%) Pertinent Admission Physical Exam Findings: alcohol withdrawal sx Laboratory Last Values WBC 4.4 K/mm3 (4.0-10.0) 10/24/18 09:15 RBC 4.65 M/mm3 (4.00-5.60) 10/24/18 09:15 Hgb 13.9 GM/dL (11.7-16.9) 10/24/18 09:15 Hct 42.2 % (35.4-49) 10/24/18 09:15 MCV 90.8 fl (80-96) 10/24/18 09:15 MCH 29.8 pg (25.7-33.7) 10/24/18 09:15 MCHC 32.8 g/dl (32.0-35.9) 10/24/18 09:15 RDW 12.2 % (11.9-15.9) 10/24/18 09:15 Plt Count 162 K/MM3 (134-434) D 10/24/18 09:15 MPV 10.8 fl (7.5-11.1) 10/24/18 09:15 Sodium 140 mmol/L (136-145) 10/24/18 09:15 Potassium 4.9 mmol/L (3.5-5.1) 10/24/18 09:15 Chloride 103 mmol/L (98-107) 10/24/18 09:15 Carbon Dioxide 31 mmol/L (21-32) 10/24/18 09:15 Anion Gap 5 MMOL/L (8-16) L 10/24/18 09:15 BUN 20 mg/dL (7-18) H 10/24/18 09:15 Creatinine 0.9 mg/dL (0.55-1.3) 10/24/18 09:15 Est GFR (CKD-EPI)AfAm 130.52 10/24/18 09:15 Est GFR (CKD-EPI)NonAf 112.62 10/24/18 09:15 Random Glucose 80 mg/dL (74-106) 10/24/18 09:15 Calcium 8.8 mg/dL (8.5-10.1) 10/24/18 09:15 Total Bilirubin 0.3 mg/dL (0.2-1) 10/24/18 09:15 AST 25 U/L (15-37) 10/24/18 09:15 ALT 39 U/L (13-61) 10/24/18 09:15 Alkaline Phosphatase 74 U/L (45-117) 10/24/18 09:15 Total Protein 7.0 g/dl (6.4-8.2) 10/24/18 09:15 Albumin 3.7 g/dl (3.4-5.0) 10/24/18 09:15 Urine Color Yellow 10/23/18 15:07 Urine Appearance Turbid 10/23/18 15:07 Urine pH 5.5 (5.0-8.0) 10/23/18 15:07 Ur Specific [place] 1.035 (1.010-1.035) 10/23/18 15:07 Urine Protein Negative (NEGATIVE) 10/23/18 15:07 Urine Glucose (UA) Negative (NEGATIVE) 10/23/18 15:07 Urine Ketones Negative (NEGATIVE) 10/23/18 15:07 Urine Blood Negative (NEGATIVE) 10/23/18 15:07 Urine Nitrite Negative (NEGATIVE) 10/23/18 15:07 Urine Bilirubin Negative (NEGATIVE) 10/23/18 15:07 Urine Urobilinogen 0.2 mg/dL (0.2-1.0) 10/23/18 15:07 Ur Leukocyte Esterase Negative (NEGATIVE) 10/23/18 15:07 lab noted - Treatment Hospital Course: Detox Protocol Followed, Detoxed Safely, Responded well, Discharged Condition Good, Rehab Referral Accepted Patient has Accepted a Re[facility] Referral to: [facility] - Medication Discharge Medications: Ambulatory Orders Methadone [Dolophine -] 130 mg PO DAILY 11/13/17 - Diagnosis (1) Alcohol dependence with uncomplicated withdrawal Status: Acute (2) Methadone maintenance therapy patient Status: Chronic (3) Nicotine dependence Status: Acute Qualifiers: Nicotine product type: cigarettes Substance use status: in withdrawal Qualified Code(s): F17.213 - Nicotine dependence, cigarettes, with withdrawal - AMA Did Patient Leave Against Medical Advice: No
== END 2018-10-28 09:24 | disposition home or self-care (01) | DRG 773 ==
LOC: YASAS 11:31 → Y3N 14:55
PROVIDERS: ADMIT Surgery; ATTEND Surgery
PROC: HZ2ZZZZ Detoxification Services for Substance Abuse Treatment (ICD-10-PCS; principal; 2018-10-23)
DX: F10.230 Alcohol dependence with withdrawal, uncomplicated (principal); F13.230 Sedative, hypnotic or anxiolytic dependence with withdrawal, uncomplicated; F11.20 Opioid dependence, uncomplicated; F17.213 Nicotine dependence, cigarettes, with withdrawal; Z86.69 Personal history of other diseases of the nervous system and sense organs; Z88.0 Allergy status to penicillin
CPT/HCPCS: 36415; 80053; 81003; 85027

== ENCOUNTER 2019-04-09 15:54 | Inpatient (IN) | payer OTHER ==
[2019-04-09 18:07] VITALS: BMI 30.1
--- NOTE | 2019-04-09 19:05 | HP ---
CIWA Score Nausea/Vomitin-Mild Nausea/No Vomiting Muscle Tremors: 7-Severe,w/o Arm Extended Anxiety: 4-Mod. Anxious/Guarded Agitation: 2 Paroxysmal Sweats: 3 Orientation: 3-Disoriented Date>2 days Tacttile Disturbances: 2-Mild Itch/Numbness/Burn Auditory Disturbances: 2-Mild Harshness/Frighten Visual Disturbances: 2-Mild Sensitivity Headache: 3-Moderate CIWA-Ar Total Score: 29 - Admission Criteria OASAS Guidelines: Admission for Medically Managed Detox: Requires at least one of the followin. CIWA greater than 12 2. Seizures within the past 24 hours 3. Delirium tremens within the past 24 hours 4. Hallucinations within the past 24 hours 5. Acute intervention needed for co occurring medical disorder 6. Acute intervention needed for co occurring psychiatric disorder 7. Severe withdrawal that cannot be handled at a lower level of care (continued vomiting, continued diarrhea, abnormal vital signs) requiring intravenous medication and/or fluids 8. Admitting History and Physical - Smoking History Smoking history: Current every day smoker Have you smoked in the past 12 months: Yes Aproximately how many cigarettes per day: 20 If you are a former smoker, when did you quit?: 4 MONTHS AGO. - Alcohol/Substance Use Hx Alcohol Use: No Admission ROS S - HPI Allergies/Adverse Reactions: Allergies Allergy/AdvReac Type Severity Reaction Status Date / Time mushroom Allergy Severe Difficulty Verified 04/09/19 17:59 Breathing Penicillins Allergy Intermediate Swelling Verified 04/09/19 17:59 No Known Drug Allergies Allergy Verified 10/23/18 11:59 History of Present Illness: This report was requested by: Cande Almazan | Reference #: [id number] Others' Prescriptions Patient Name: Everett Roper Date: 1985 Address: [address] [place] [address] Sex: Male Rx Written Rx Dispensed Drug Quantity Days Supply Prescriber Name 11/03/2018 11/03/2018 methadone hcl 10 mg tablet 26 2 Diana Patton NP 10/29/2018 10/29/2018 methadone hcl 10 mg tablet 78 6 Celeste Landin 10/28/2018 10/28/2018 diazepam 5 mg tablet 50 5 Barber Nieves pt denies detox in October states got rx and was using rx to buy other illicits " there are crooked doctors out there " pt @ [facility] since a few weeks ago , prior [facility] , [facility] x 2 years reports opiate use 1-2 weeks ago, reports 1-2 x in the last year , IV use in the past > 18 mo ago . xanax : 2 mg x 5 /day , klonopin at times x 1 year , reports seizure 1 mo ago related to w/d , 2 weeks ago hosp @ [facility] 2/2 seizure ( w/d ) , latest use yesterday morning etoh : 1 pint vodka /day x 3 d/week , latest use 2 days ago PMHX : denies . On prophylactic meds 2/2 unprotected sexual intercourse Exam Limitations: Clinical Condition - Ebola screening Have you traveled outside of the country in the last 21 days: No Have you had contact with anyone from an Ebola affected area: No Do you have a fever: No - Review of Systems Constitutional: Loss of Appetite EENT: reports: No Symptoms Reported Respiratory: reports: No Symptoms reported Cardiac: reports: No Symptoms Reported GI: reports: Constipated, Nausea, Poor Appetite : reports: No Symptoms Reported Musculoskeletal: reports: No Symptoms Reported Integumentary: reports: No Symptoms Reported Neuro: reports: See HPI, Headache, Tremors Endocrine: reports: No Symptoms Reported Psychiatric: reports: Anxious, Disorientated Patient History - Patient Medical History Hx Anemia: No Hx Asthma: No Hx Chronic Obstructive Pulmonary Disease (COPD): No Hx Cancer: No Hx Cardiac Disorders: No Hx Congestive Heart Failure: No Hx Hypertension: No Hx Hypercholesterolemia: No Hx Pacemaker: No HX Cerebrovascular Accident: No Hx Seizures: Yes (drug related-last episode was in 08/2017) Hx Dementia: No Hx Diabetes: No Hx Gastrointestinal Disorders: No Hx Liver Disease: No Hx Genitourinary Disorders: No Hx Sexually Transmitted Disorders: No Hx Renal Disease (ESRD): No Hx Thyroid Disease: No Hx Human Immunodeficiency Virus (HIV): No (last 05/17/18 negative) Hx Hepatitis C: No Hx Depression: No Hx Suicide Attempt: No Hx Bipolar Disorder: No Hx Schizophrenia: No - Patient Surgical History Past Surgical History: No Hx Neurologic Surgery: No Hx Cataract Extraction: No Hx Cardiac Surgery: No Hx Lung Surgery: No Hx Breast Surgery: No Hx Breast Biopsy: No Hx Abdominal Surgery: No Hx Appendectomy: No Hx Cholecystectomy: No Hx Genitourinary Surgery: No Hx Section: No Hx Orthopedic Surgery: No Anesthesia Reaction: No - PPD History Date: 07/13/17 Results: 0 mm - Smoking Cessation Smoking history: Current every day smoker Have you smoked in the past 12 months: Yes Aproximately how many cigarettes per day: 20 If you are a former smoker, when did you quit?: 4 MONTHS AGO. Cigars Per Day: 0 Hx Chewing Tobacco Use: No Initiated information on smoking cessation: Yes 'Breaking Loose' booklet given: 04/09/19 - Substances abused Alprazolam (Xanax) Other (specify): 2MG Substance route: Oral Frequency: Daily Amount used: 8MG Age of first use: 20 Date of last use: 04/08/19 Benzodiazepine (Klonopin) Other (specify): 2MG Substance route: Oral Frequency: 1-2 times per week Amount used: 4 TABS Age of first use: 20 Date of last use: 04/08/19 Alcohol Substance route: Oral Frequency: 3-6 times per week Amount used: 1 PINT OF VODKA Age of first use: 13 Date of last use: 04/07/19 Admission Physical Exam S - Vital Signs Vital Signs: Vital Signs - 24 hr 04/09/19 18:02 Temperature 98.2 F Pulse Rate 73 Respiratory 18 Rate Blood Pressure 140/88 - Physical General Appearance: Yes: Moderate Distress, Tremorous, Anxious HEENTM: Yes: EOMI, Hearing grossly Normal, Normocephalic, Normal Voice Respiratory: Yes: Chest Non-Tender, Lungs Clear, Normal Breath Sounds, No Respiratory Distress, No Accessory Muscle Use Neck: Yes: No masses,lesions,Nodules, Trachea in good position Cardiology: Yes: Regular Rhythm, Regular Rate, S1, S2 Abdominal: Yes: Non Tender, Soft Musculoskeletal: Yes: Gait Steady Extremities: Yes: Normal Inspection, Normal Range of Motion, Tremors 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: Alert, Motor Strength 5/5 Integumentary: Yes: Warm - Diagnostic (1) Alcohol dependence with uncomplicated withdrawal Current Visit: Yes Status: Chronic (2) Nicotine dependence Current Visit: Yes Status: Chronic Qualifiers: Nicotine product type: cigarettes (3) Opioid dependence on agonist therapy Current Visit: Yes Status: Chronic (4) Sedative, hypnotic or anxiolytic dependence with withdrawal, uncomplicated Current Visit: Yes Status: Chronic Breathalyzer - Breathalyzer Breathalyzer: 0 Urine Drug Screen - Test Device Lot number: [id number] Expiration date: 12/18/20 - Control Is test valid?: Yes - Results Drug screen NEGATIVE: No Urine drug screen results: MTD-Methadone, BZO-Benzodiazepines Inpatient Rehab Admission - Rehab Decision to Admit Inpatient rehab admission?: No
[2019-04-09] MEDS ORDERED: ACETAMINOPHEN 325 MG TABLET (FP) PO PRN ×2 (19:18)
[2019-04-09] MEDS ORDERED: IBUPROFEN 400 MG TABLET (FP) PO PRN (19:18)
[2019-04-09] MEDS ORDERED: MAGNESIUM HYDROX 2400MG/30ML ORAL SUSPENSION 30 ML CUP PO PRN (19:18)
[2019-04-09] MEDS ORDERED: MENTHOL/PHENOL 1 EACH UD MM PRN (19:18)
[2019-04-09] MEDS ORDERED: MAG HYDROX/AL HYDROX/SIMETH 30 ML UNIT-DOSE CUP PO PRN (19:18)
[2019-04-09] MEDS ORDERED: BISMUTH SUBSALICYLATE 524 MG/30 ML UD PO PRN (19:18)
[2019-04-09] MEDS ORDERED: MAGNESIUM CITRATE 300 ML BOTTLE PO PRN (19:18)
[2019-04-09] MEDS ORDERED: diazePAM 5 MG TABLET PO ONE (19:23)
[2019-04-09] MEDS ORDERED: MELATONIN 5 MG TABLETS PO PRN (22:00)
[2019-04-09] MEDS: diazePAM 5 MG TABLET PO SCH (22:26)
[2019-04-09] MEDS: THIAMINE HCL 100 MG TABLET (FP) PO SCH (22:26)
[2019-04-09] MEDS: diazePAM 5 MG TABLET PO PRN (23:45)
[2019-04-10] MEDS: diazePAM 5 MG TABLET PO SCH ×3 (05:28→22:54)
[2019-04-10] MEDS: NICOTINE POLACRILEX 4 MG GUM BUC PRN ×5 (05:28→20:43)
[2019-04-10] MEDS: METHOCARBAMOL 500 MG TABLET PO PRN ×2 (05:28→12:10)
[2019-04-10] MEDS: diazePAM 5 MG TABLET PO PRN ×4 (07:34→20:41)
[2019-04-10] MEDS ORDERED: METHADONE HCL 10 MG TABLET PO ONE (09:22)
[2019-04-10] MEDS ORDERED: METHADONE 120 MG, METHADONE 10 MG PO ONE (09:30)
[2019-04-10] MEDS ORDERED: METHADONE HCL 10 MG TABLET ONE (09:43)
[2019-04-10] MEDS ORDERED: METHADONE HCL 40 MG DISPERSABLE TABLET ONE (09:44)
[2019-04-10] MEDS: PRENATAL VITAMINS W/ FOLIC ACID TABLET (FP) PO SCH (09:46)
[2019-04-10] MEDS ORDERED: EMTRICITABINE 200MG/TENOFOVIR 300MG PO SCH ×2 (10:00)
[2019-04-10] MEDS ORDERED: PATIENT'S OWN MED:DOLUTEGRAVIR SODIUM 50 MG TABLET (NON-FORMULARY) PO SCH (10:00)
[2019-04-10] MEDS ORDERED: DOLUTEGRAVIR SODIUM 50 MG TABLET (NON-FORMULARY) PO SCH (10:00)
[2019-04-10] MEDS: DOLUTEGRAVIR SODIUM 50 MG TABLET (NON-FORMULARY) PO SCH (10:08)
[2019-04-10] MEDS: [UNRECOGNIZED DRUG - OTHER] PO SCH (10:08)
[2019-04-10] MEDS: EMTRICITABINE PO SCH (10:08)
[2019-04-10 10:25] LABS: HEMATOCRIT 41.3 % (35.4-49); HEMOGLOBIN 13.8 GM/dL (11.7-16.9); MCH 29.9 pg (25.7-33.7); MCHC 33.5 g/dl (32.0-35.9); MEAN CELL VOLUME 89.2 fl (80-96); MEAN PLT VOLUME 10.6 fl (7.5-11.1); PLATELET COUNT 146 K/MM3 (134-434); RBC 4.63 M/mm3 (4.00-5.60); WHITE BLOOD COUNT 5.4 K/mm3 (4.0-10.0)
[2019-04-10 10:27] LABS: ALBUMIN 3.9 g/dl (3.4-5.0); BILIRUBIN,TOTAL 0.2 mg/dL (0.2-1); BLOOD UREA NITROGEN 18.1 mg/dL (7-18); CALCIUM 8.9 mg/dL (8.5-10.1); CREATININE 1.1 mg/dL (0.55-1.3); TOT PROT 6.8 g/dl (6.4-8.2)
--- NOTE | 2019-04-10 11:51 | PN ---
S CIWA - CIWA Score Nausea/Vomitin-Mild Nausea/No Vomiting Muscle Tremors: 3 Anxiety: 3 Agitation: 3 Paroxysmal Sweats: No Perspiration Orientation: 0-Oriented Tacttile Disturbances: 1-Very Mild Itch/Numbness Auditory Disturbances: 0-None Visual Disturbances: 0-None Headache: 2-Mild CIWA-Ar Total Score: 13 BHS Progress Note (SOAP) Subjective: alert,irritable,anxious,interrupted sleep,tremor,pain in the body and back,on truvada and trivicay for precaution for unprotective sex for last 3 days from provider in [place],stated has hiv test negative Objective: 04/10/19 11:49 Vital Signs Temperature 97.7 F 04/10/19 09:33 Pulse Rate 66 04/10/19 09:33 Respiratory Rate 18 04/10/19 09:33 Blood Pressure 120/70 04/10/19 09:33 O2 Sat by Pulse Oximetry (%) Laboratory Last Values WBC 5.4 K/mm3 (4.0-10.0) 04/10/19 08:15 RBC 4.63 M/mm3 (4.00-5.60) 04/10/19 08:15 Hgb 13.8 GM/dL (11.7-16.9) 04/10/19 08:15 Hct 41.3 % (35.4-49) 04/10/19 08:15 MCV 89.2 fl (80-96) 04/10/19 08:15 MCH 29.9 pg (25.7-33.7) 04/10/19 08:15 MCHC 33.5 g/dl (32.0-35.9) 04/10/19 08:15 RDW 13.0 % (11.9-15.9) 04/10/19 08:15 Plt Count 146 K/MM3 (134-434) 04/10/19 08:15 MPV 10.6 fl (7.5-11.1) 04/10/19 08:15 Sodium 138 mmol/L (136-145) 04/10/19 08:15 Potassium 4.0 mmol/L (3.5-5.1) 04/10/19 08:15 Chloride 103 mmol/L (98-107) 04/10/19 08:15 Carbon Dioxide 30 mmol/L (21-32) 04/10/19 08:15 Anion Gap 4 MMOL/L (8-16) L 04/10/19 08:15 BUN 18.1 mg/dL (7-18) H 04/10/19 08:15 Creatinine 1.1 mg/dL (0.55-1.3) 04/10/19 08:15 Est GFR (CKD-EPI)AfAm 102.40 04/10/19 08:15 Est GFR (CKD-EPI)NonAf 88.36 04/10/19 08:15 Random Glucose 99 mg/dL (74-106) 04/10/19 08:15 Calcium 8.9 mg/dL (8.5-10.1) 04/10/19 08:15 Total Bilirubin 0.2 mg/dL (0.2-1) 04/10/19 08:15 AST 17 U/L (15-37) 04/10/19 08:15 ALT 26 U/L (13-61) 04/10/19 08:15 Alkaline Phosphatase 64 U/L (45-117) 04/10/19 08:15 Total Protein 6.8 g/dl (6.4-8.2) 04/10/19 08:15 Albumin 3.9 g/dl (3.4-5.0) 04/10/19 08:15 04/10/19 11:49 rpr pending Assessment: 04/10/19 11:50 withdrawal symptom Plan: continue detox valium regimen,encourage fluid
[2019-04-10] MEDS: cloNIDine HCL 0.1 MG TABLET PO PRN ×3 (12:10→23:02)
[2019-04-10] MEDS: THIAMINE HCL 100 MG TABLET (FP) PO SCH (22:54)
[2019-04-11] MEDS ORDERED: METHADONE HCL 10 MG TABLET ONE (05:20)
[2019-04-11] MEDS ORDERED: METHADONE HCL 40 MG DISPERSABLE TABLET ONE (05:21)
[2019-04-11] MEDS: diazePAM 5 MG TABLET PO SCH ×2 (05:47→17:25)
[2019-04-11] MEDS: METHADONE 120 MG, METHADONE 10 MG PO SCH (05:48)
[2019-04-11] MEDS: NICOTINE POLACRILEX 4 MG GUM BUC PRN (05:50)
[2019-04-11] MEDS ORDERED: METHADONE HCL 40 MG DISPERSABLE TABLET PO SCH (06:00)
[2019-04-11] MEDS: diazePAM 5 MG TABLET PO PRN ×2 (08:04→12:08)
[2019-04-11] MEDS: hydrOXYzine PAMOATE 25 MG CAPSULE (FP) PO PRN ×2 (08:43→21:07)
[2019-04-11] MEDS: METHOCARBAMOL 500 MG TABLET PO PRN ×2 (08:43→21:07)
[2019-04-11] MEDS: cloNIDine HCL 0.1 MG TABLET PO PRN ×2 (09:12→21:07)
[2019-04-11] MEDS ORDERED: cloNIDine HCL 0.1 MG TABLET PO SCH (10:00)
[2019-04-11] MEDS: PRENATAL VITAMINS W/ FOLIC ACID TABLET (FP) PO SCH (10:05)
[2019-04-11] MEDS: [UNRECOGNIZED DRUG - OTHER] PO SCH (10:05)
[2019-04-11] MEDS: DOLUTEGRAVIR SODIUM 50 MG TABLET (NON-FORMULARY) PO SCH (10:05)
[2019-04-11] MEDS: EMTRICITABINE PO SCH (10:05)
--- NOTE | 2019-04-11 12:12 | PN ---
S CIWA - CIWA Score Nausea/Vomitin-Mild Nausea/No Vomiting Muscle Tremors: 1-None Visible, but [place] Anxiety: 1-Mildly Anxious Agitation: 2 Paroxysmal Sweats: 2 Orientation: 0-Oriented Tacttile Disturbances: 1-Very Mild Itch/Numbness Auditory Disturbances: 0-None Visual Disturbances: 0-None Headache: 2-Mild CIWA-Ar Total Score: 10 BHS Progress Note (SOAP) Subjective: alert,irritable,tremor,interrupted sleep,pain in the body Objective: 04/11/19 12:11 Vital Signs Temperature 97.7 F 04/11/19 11:11 Pulse Rate 85 04/11/19 11:11 Respiratory Rate 18 04/11/19 11:11 Blood Pressure 138/82 04/11/19 11:11 O2 Sat by Pulse Oximetry (%) Laboratory Last Values WBC 5.4 K/mm3 (4.0-10.0) 04/10/19 08:15 RBC 4.63 M/mm3 (4.00-5.60) 04/10/19 08:15 Hgb 13.8 GM/dL (11.7-16.9) 04/10/19 08:15 Hct 41.3 % (35.4-49) 04/10/19 08:15 MCV 89.2 fl (80-96) 04/10/19 08:15 MCH 29.9 pg (25.7-33.7) 04/10/19 08:15 MCHC 33.5 g/dl (32.0-35.9) 04/10/19 08:15 RDW 13.0 % (11.9-15.9) 04/10/19 08:15 Plt Count 146 K/MM3 (134-434) 04/10/19 08:15 MPV 10.6 fl (7.5-11.1) 04/10/19 08:15 Sodium 138 mmol/L (136-145) 04/10/19 08:15 Potassium 4.0 mmol/L (3.5-5.1) 04/10/19 08:15 Chloride 103 mmol/L (98-107) 04/10/19 08:15 Carbon Dioxide 30 mmol/L (21-32) 04/10/19 08:15 Anion Gap 4 MMOL/L (8-16) L 04/10/19 08:15 BUN 18.1 mg/dL (7-18) H 04/10/19 08:15 Creatinine 1.1 mg/dL (0.55-1.3) 04/10/19 08:15 Est GFR (CKD-EPI)AfAm 102.40 04/10/19 08:15 Est GFR (CKD-EPI)NonAf 88.36 04/10/19 08:15 Random Glucose 99 mg/dL (74-106) 04/10/19 08:15 Calcium 8.9 mg/dL (8.5-10.1) 04/10/19 08:15 Total Bilirubin 0.2 mg/dL (0.2-1) 04/10/19 08:15 AST 17 U/L (15-37) 04/10/19 08:15 ALT 26 U/L (13-61) 04/10/19 08:15 Alkaline Phosphatase 64 U/L (45-117) 04/10/19 08:15 Total Protein 6.8 g/dl (6.4-8.2) 04/10/19 08:15 Albumin 3.9 g/dl (3.4-5.0) 04/10/19 08:15 RPR Titer Nonreactive (NONREACTIVE) 04/10/19 08:15 Assessment: 04/11/19 12:12 withdrawal symptom Plan: continue detox valium regimen
[2019-04-11] MEDS ORDERED: GABAPENTIN 100 MG CAPSULE (FP) PO ONE (20:20)
--- NOTE | 2019-04-11 20:22 | PN ---
S Progress Note Note: Vital Signs Temperature 97.9 F 04/11/19 17:33 Pulse Rate 75 04/11/19 17:33 Respiratory Rate 17 04/11/19 17:33 Blood Pressure 97/70 04/11/19 17:33 O2 Sat by Pulse Oximetry (%) c/o of anxiety requested additional valium patient completed prn valium and due for discharge in the morning one time dose gabapentin 100 mg ordered
[2019-04-11] MEDS: THIAMINE HCL 100 MG TABLET (FP) PO SCH (21:07)
[2019-04-12] MEDS ORDERED: METHADONE HCL 10 MG TABLET ONE (04:35)
[2019-04-12] MEDS ORDERED: METHADONE HCL 40 MG DISPERSABLE TABLET ONE (04:35)
[2019-04-12] MEDS: METHADONE 120 MG, METHADONE 10 MG PO SCH (05:08)
[2019-04-12] MEDS: NICOTINE POLACRILEX 4 MG GUM BUC PRN ×2 (05:10→14:43)
[2019-04-12] MEDS ORDERED: diazePAM 5 MG TABLET PO ONE (06:00)
--- NOTE | 2019-04-12 09:04 | DS ---
[facility] Detox Discharge Summary Admission Date: 04/09/19 Discharge Date: 04/12/19 - History Present History: Alcohol Dependence, Cocaine Dependence, Sedative Dependence, MMTP - Physical Exam Results Vital Signs: Vital Signs Temperature 97.5 F L 04/12/19 06:00 Pulse Rate 54 L 04/12/19 06:00 Respiratory Rate 18 04/12/19 06:00 Blood Pressure 94/77 04/12/19 06:00 O2 Sat by Pulse Oximetry (%) Pertinent Admission Physical Exam Findings: pt arrived in withdrawals Vital Signs Temperature 98.2 F 04/12/19 09:42 Pulse Rate 72 04/12/19 09:42 Respiratory Rate 20 04/12/19 09:42 Blood Pressure 99/64 04/12/19 09:42 O2 Sat by Pulse Oximetry (%) Laboratory Tests 04/10/19 04/10/19 04/10/19 08:15 08:15 08:15 WBC 5.4 RBC 4.63 Hgb 13.8 Hct 41.3 MCV 89.2 MCH 29.9 MCHC 33.5 RDW 13.0 Plt Count 146 MPV 10.6 Sodium 138 Potassium 4.0 Chloride 103 Carbon Dioxide 30 Anion Gap 4 L BUN 18.1 H Creatinine 1.1 Est GFR (CKD-EPI)AfAm 102.40 Est GFR (CKD-EPI)NonAf 88.36 Random Glucose 99 Calcium 8.9 Total Bilirubin 0.2 AST 17 ALT 26 Alkaline Phosphatase 64 Total Protein 6.8 Albumin 3.9 RPR Titer Nonreactive today pt feeling better aaox3 ambulating no acute distress no s/s of withdrawals - Treatment Hospital Course: Detox Protocol Followed, Detoxed Safely, Responded well, Discharged Condition Good, Rehab Referral Accepted Patient has Accepted a Rehab Referral to: referred to his [facility] - Diagnosis (1) Alcohol dependence with uncomplicated withdrawal Current Visit: Yes Status: Chronic (2) Nicotine dependence Current Visit: Yes Status: Chronic Qualifiers: Nicotine product type: cigarettes Substance use status: uncomplicated Qualified Code(s): F17.210 - Nicotine dependence, cigarettes, uncomplicated (3) Opioid dependence on agonist therapy Current Visit: Yes Status: Chronic (4) Sedative, hypnotic or anxiolytic dependence with withdrawal, uncomplicated Current Visit: Yes Status: Chronic (5) Drug-induced mood disorder Current Visit: No Status: Acute (6) History of chest pain Current Visit: No Status: Inactive (7) Mood disorder Current Visit: No Status: Acute (8) Cocaine dependence Current Visit: Yes Status: Chronic Qualifiers: Substance use status: uncomplicated Qualified Code(s): F14.20 - Cocaine dependence, uncomplicated (9) Depression Current Visit: No Status: Chronic (10) History of seizure Current Visit: No Status: Suspected (11) Methadone maintenance therapy patient Current Visit: Yes Status: Chronic (12) PTSD (post-traumatic stress disorder) Current Visit: No Status: Chronic (13) Anxiety and depression Current Visit: No Status: Suspected (14) Acute [place] Current Visit: No Status: Inactive - AMA Did Patient Leave Against Medical Advice: No
[2019-04-12] MEDS: EMTRICITABINE PO SCH (10:45)
[2019-04-12] MEDS: PRENATAL VITAMINS W/ FOLIC ACID TABLET (FP) PO SCH (10:45)
[2019-04-12] MEDS: DOLUTEGRAVIR SODIUM 50 MG TABLET (NON-FORMULARY) PO SCH (10:45)
[2019-04-12] MEDS: [UNRECOGNIZED DRUG - OTHER] PO SCH (10:45)
[2019-04-12 13:40] VITALS: BP 106/64; PULSE 70; TEMP 98.1
== END 2019-04-12 14:48 | disposition other institution (70) | DRG 773 ==
LOC: YASAS 15:54 → Y6N 19:59
PROVIDERS: ADMIT Allergy & Immunology; ATTEND Allergy & Immunology
PROC: HZ2ZZZZ Detoxification Services for Substance Abuse Treatment (ICD-10-PCS; principal; 2019-04-09)
DX: F10.230 Alcohol dependence with withdrawal, uncomplicated (principal); F13.230 Sedative, hypnotic or anxiolytic dependence with withdrawal, uncomplicated; F11.20 Opioid dependence, uncomplicated; F14.20 Cocaine dependence, uncomplicated; F17.210 Nicotine dependence, cigarettes, uncomplicated; F39 Unspecified mood [affective] disorder; F19.24 Other psychoactive substance dependence with psychoactive substance-induced mood disorder; F32.9 Major depressive disorder, single episode, unspecified; F41.8 Other specified anxiety disorders; F43.10 Post-traumatic stress disorder, unspecified; I25.2 Old myocardial infarction; Z88.0 Allergy status to penicillin; Z91.018 Allergy to other foods
CPT/HCPCS: 36415; 80053; 85027; 86593; J0735

== ENCOUNTER 2019-04-12 15:12 | Inpatient (IN) | payer OTHER ==
--- NOTE | 2019-04-12 10:56 | HP ---
[facility] Rehab Assess/Revision - Admission History Admitted to Rehab from: [facility] - Findings Detox History & Physical reviewed: Yes Concur with findings: Yes Inpatient Rehab Admission - Rehab Decision to Admit Inpatient rehab admission?: Yes - Initial Determination Are CD services needed?: Yes Free of communicable disease: Yes Not in need of hospitalization: Yes - Rehab Admission Criteria Previous failed treatment: Yes Poor recovery environment: Yes Comorbidities: Yes Lacks judgement: Yes Patient is meeting Inpatient Rehab admission criteria:: Yes
[~2019-04-12 15:12] MED LIST: ACETAMINOPHEN 325 MG TABLET (FP) PO PRN; MAG HYDROX/AL HYDROX/SIMETH 30 ML UNIT-DOSE CUP PO PRN; MAGNESIUM CITRATE 300 ML BOTTLE PO PRN; MENTHOL/PHENOL 1 EACH UD MM PRN; P-EPHED 60MG/TRIPROLIDI 2.5MG TABLET PO PRN; guaiFENesin 200 MG/10 ML 10 ML UNIT-DOSE CUPS PO PRN
[2019-04-12] MEDS ORDERED: METHOCARBAMOL 500 MG TABLET PO PRN (15:58)
[2019-04-12] MEDS ORDERED: TRIMETHOBENZAMIDE HCL 200MG/2ML INJ IM PRN (16:01)
--- NOTE | 2019-04-12 16:04 | PN ---
[facility] Progress Note Note: pt is a 33 y/o male with a hx of alcohol and benzo use disorder and on Methadone 130 mg po daily admitted from [address] [place] [address] this afternoon c/o w/s--nausea and vomiting. Pt was being seen by [facility] underwriter and he suddenly had an episode of vomiting. Pt is very agitated, abrasive and cursing this va underwriter during this intervention as va underwriter tries to see him and order interventions for his care. Pt stormed out of room cursing "f--k you........". Pt currently [facility]. Alert o x 3 agitated A/P N/V protracted w/s Tigan 200 mg I.M x 1 dose now then Q8H . May change to Zofran sl if n/v abating Clonidine 0.1 mg po bid prn for w/s Vistaril 50 mg po q4h prn for agitation Robaxin 500 mg po tid prn for muscle spasm Monitor pt's symptoms.
[2019-04-12] MEDS ORDERED: TRIMETHOBENZAMIDE HCL 300 MG CAPSULE PO ONE (16:45)
[2019-04-12] MEDS: THIAMINE HCL 100 MG TABLET (FP) PO SCH (21:26)
[2019-04-12] MEDS: hydrOXYzine PAMOATE 50 MG CAPSULE (FP) PO PRN (21:26)
[2019-04-12] MEDS: cloNIDine HCL 0.1 MG TABLET PO PRN (21:26)
[2019-04-12] MEDS: NICOTINE POLACRILEX 4 MG GUM BUC PRN (21:27)
[2019-04-12] MEDS: MELATONIN 5 MG TABLETS PO PRN (22:30)
[2019-04-13] MEDS ORDERED: METHADONE HCL 10 MG TABLET PO SCH (06:00)
[2019-04-13] MEDS ORDERED: METHADONE HCL 10 MG TABLET ONE (06:55)
[2019-04-13] MEDS: LOPERAMIDE HCL 2 MG CAPSULE PO PRN ×3 (06:55→21:33)
[2019-04-13] MEDS ORDERED: METHADONE HCL 40 MG DISPERSABLE TABLET ONE (06:55)
[2019-04-13] MEDS: METHADONE 120 MG, METHADONE 10 MG PO SCH (06:56)
[2019-04-13] MEDS: NICOTINE POLACRILEX 4 MG GUM BUC PRN ×5 (06:58→21:57)
[2019-04-13] MEDS: NICOTINE 21 MG/24 HOURS TOPICAL PATCH TD SCH (10:04)
[2019-04-13] MEDS: PRENATAL VITAMINS W/ FOLIC ACID TABLET (FP) PO SCH (10:04)
[2019-04-13] MEDS: cloNIDine HCL 0.1 MG TABLET PO PRN ×2 (10:06→21:33)
--- NOTE | 2019-04-13 13:32 | PN ---
[facility] Progress Note Note: patient has been getting tivicay 50 mgs po daily and truvada 1 tab po daily for prophlactic after high risk unprotective sex,has his own medications,medication ordered,need to take it for 30 days total
[2019-04-13] MEDS: IBUPROFEN 400 MG TABLET (FP) PO PRN (13:51)
[2019-04-13] MEDS: DOLUTEGRAVIR SODIUM 50 MG TABLET (NON-FORMULARY) PO SCH (14:09)
[2019-04-13] MEDS: EMTRICITABINE 200MG/TENOFOVIR 300MG PO SCH (14:09)
[2019-04-13] MEDS: THIAMINE HCL 100 MG TABLET (FP) PO SCH (21:31)
[2019-04-14] MEDS ORDERED: METHADONE HCL 40 MG DISPERSABLE TABLET ONE (06:29)
[2019-04-14] MEDS ORDERED: METHADONE HCL 10 MG TABLET ONE (06:29)
[2019-04-14] MEDS: METHADONE 120 MG, METHADONE 10 MG PO SCH (06:30)
[2019-04-14] MEDS: NICOTINE POLACRILEX 4 MG GUM BUC PRN ×5 (06:31→20:41)
[2019-04-14] MEDS: EMTRICITABINE 200MG/TENOFOVIR 300MG PO SCH (10:17)
[2019-04-14] MEDS: DOLUTEGRAVIR SODIUM 50 MG TABLET (NON-FORMULARY) PO SCH (10:17)
[2019-04-14] MEDS: PRENATAL VITAMINS W/ FOLIC ACID TABLET (FP) PO SCH (10:17)
[2019-04-14] MEDS: NICOTINE 21 MG/24 HOURS TOPICAL PATCH TD SCH (10:18)
[2019-04-14] MEDS: hydrOXYzine PAMOATE 50 MG CAPSULE (FP) PO PRN (10:19)
[2019-04-14] MEDS: LOPERAMIDE HCL 2 MG CAPSULE PO PRN (10:19)
[2019-04-14] MEDS: THIAMINE HCL 100 MG TABLET (FP) PO SCH (21:30)
[2019-04-14] MEDS: cloNIDine HCL 0.1 MG TABLET PO PRN (21:30)
[2019-04-14] MEDS: MELATONIN 5 MG TABLETS PO PRN (21:31)
[2019-04-14] MEDS: IBUPROFEN 400 MG TABLET (FP) PO PRN (21:31)
[2019-04-15] MEDS ORDERED: METHADONE HCL 40 MG DISPERSABLE TABLET ONE (05:52)
[2019-04-15] MEDS ORDERED: METHADONE HCL 10 MG TABLET ONE (05:52)
[2019-04-15] MEDS: METHADONE 120 MG, METHADONE 10 MG PO SCH (06:20)
[2019-04-15] MEDS: NICOTINE POLACRILEX 4 MG GUM BUC PRN ×5 (06:22→21:41)
[2019-04-15] MEDS: cloNIDine HCL 0.1 MG TABLET PO PRN ×2 (10:42→21:40)
[2019-04-15] MEDS: PRENATAL VITAMINS W/ FOLIC ACID TABLET (FP) PO SCH (10:42)
[2019-04-15] MEDS: DOLUTEGRAVIR SODIUM 50 MG TABLET (NON-FORMULARY) PO SCH (10:43)
[2019-04-15] MEDS: NICOTINE 21 MG/24 HOURS TOPICAL PATCH TD SCH (10:43)
[2019-04-15] MEDS: EMTRICITABINE 200MG/TENOFOVIR 300MG PO SCH (10:43)
[2019-04-15] MEDS: MELATONIN 5 MG TABLETS PO PRN (21:40)
[2019-04-15] MEDS: hydrOXYzine PAMOATE 50 MG CAPSULE (FP) PO PRN (21:40)
[2019-04-15] MEDS: THIAMINE HCL 100 MG TABLET (FP) PO SCH (21:41)
[2019-04-15] MEDS: IBUPROFEN 400 MG TABLET (FP) PO PRN (21:41)
[2019-04-16] MEDS ORDERED: METHADONE HCL 10 MG TABLET ONE (06:00)
[2019-04-16] MEDS ORDERED: METHADONE HCL 40 MG DISPERSABLE TABLET ONE (06:01)
[2019-04-16] MEDS: METHADONE 120 MG, METHADONE 10 MG PO SCH (06:17)
[2019-04-16] MEDS: NICOTINE POLACRILEX 4 MG GUM BUC PRN ×3 (06:21→22:16)
[2019-04-16] MEDS: PRENATAL VITAMINS W/ FOLIC ACID TABLET (FP) PO SCH (11:27)
[2019-04-16] MEDS: DOLUTEGRAVIR SODIUM 50 MG TABLET (NON-FORMULARY) PO SCH (11:28)
[2019-04-16] MEDS: EMTRICITABINE 200MG/TENOFOVIR 300MG PO SCH (11:28)
[2019-04-16] MEDS: NICOTINE 21 MG/24 HOURS TOPICAL PATCH TD SCH (11:29)
[2019-04-16] MEDS: cloNIDine HCL 0.1 MG TABLET PO PRN ×2 (11:33→21:43)
[2019-04-16] MEDS: hydrOXYzine PAMOATE 50 MG CAPSULE (FP) PO PRN (21:43)
[2019-04-16] MEDS: THIAMINE HCL 100 MG TABLET (FP) PO SCH (21:44)
[2019-04-16] MEDS: MELATONIN 5 MG TABLETS PO PRN (21:44)
[2019-04-17] MEDS ORDERED: METHADONE HCL 10 MG TABLET ONE (06:06)
[2019-04-17] MEDS ORDERED: METHADONE HCL 40 MG DISPERSABLE TABLET ONE (06:06)
[2019-04-17] MEDS: METHADONE 120 MG, METHADONE 10 MG PO SCH (06:28)
[2019-04-17] MEDS: NICOTINE POLACRILEX 4 MG GUM BUC PRN ×4 (06:29→21:38)
[2019-04-17] MEDS: DOLUTEGRAVIR SODIUM 50 MG TABLET (NON-FORMULARY) PO SCH (11:00)
[2019-04-17] MEDS: NICOTINE 21 MG/24 HOURS TOPICAL PATCH TD SCH (11:00)
[2019-04-17] MEDS: PRENATAL VITAMINS W/ FOLIC ACID TABLET (FP) PO SCH (11:00)
[2019-04-17] MEDS: EMTRICITABINE 200MG/TENOFOVIR 300MG PO SCH (11:01)
[2019-04-17] MEDS: cloNIDine HCL 0.1 MG TABLET PO PRN ×2 (11:02→22:14)
[2019-04-17] MEDS: hydrOXYzine PAMOATE 50 MG CAPSULE (FP) PO PRN ×2 (12:21→21:37)
[2019-04-17] MEDS: MAGNESIUM HYDROX 2400MG/30ML ORAL SUSPENSION 30 ML CUP PO PRN (12:21)
[2019-04-17] MEDS: MELATONIN 5 MG TABLETS PO PRN (21:35)
[2019-04-17] MEDS: THIAMINE HCL 100 MG TABLET (FP) PO SCH (21:35)
[2019-04-18] MEDS ORDERED: METHADONE HCL 40 MG DISPERSABLE TABLET ONE (06:04)
[2019-04-18] MEDS ORDERED: METHADONE HCL 10 MG TABLET ONE (06:04)
[2019-04-18] MEDS: METHADONE 120 MG, METHADONE 10 MG PO SCH (06:10)
[2019-04-18] MEDS: NICOTINE POLACRILEX 4 MG GUM BUC PRN ×5 (06:11→21:30)
[2019-04-18] MEDS: PRENATAL VITAMINS W/ FOLIC ACID TABLET (FP) PO SCH (09:55)
[2019-04-18] MEDS: NICOTINE 21 MG/24 HOURS TOPICAL PATCH TD SCH (09:55)
[2019-04-18] MEDS: DOLUTEGRAVIR SODIUM 50 MG TABLET (NON-FORMULARY) PO SCH (09:56)
[2019-04-18] MEDS: EMTRICITABINE 200MG/TENOFOVIR 300MG PO SCH (09:57)
[2019-04-18] MEDS: cloNIDine HCL 0.1 MG TABLET PO PRN ×2 (09:59→21:29)
[2019-04-18] MEDS: MAGNESIUM HYDROX 2400MG/30ML ORAL SUSPENSION 30 ML CUP PO PRN (09:59)
[2019-04-18] MEDS: MELATONIN 5 MG TABLETS PO PRN (21:29)
[2019-04-18] MEDS: hydrOXYzine PAMOATE 50 MG CAPSULE (FP) PO PRN (21:29)
[2019-04-18] MEDS: THIAMINE HCL 100 MG TABLET (FP) PO SCH (21:30)
[2019-04-19] MEDS: METHADONE 120 MG, METHADONE 10 MG PO SCH (06:21)
[2019-04-19] MEDS ORDERED: METHADONE HCL 10 MG TABLET ONE (06:21)
[2019-04-19] MEDS ORDERED: METHADONE HCL 40 MG DISPERSABLE TABLET ONE (06:21)
[2019-04-19] MEDS: NICOTINE POLACRILEX 4 MG GUM BUC PRN ×3 (06:21→21:29)
[2019-04-19] MEDS: EMTRICITABINE 200MG/TENOFOVIR 300MG PO SCH (10:30)
[2019-04-19] MEDS: PRENATAL VITAMINS W/ FOLIC ACID TABLET (FP) PO SCH (10:30)
[2019-04-19] MEDS: DOLUTEGRAVIR SODIUM 50 MG TABLET (NON-FORMULARY) PO SCH (10:30)
[2019-04-19] MEDS: NICOTINE 21 MG/24 HOURS TOPICAL PATCH TD SCH (10:31)
[2019-04-19] MEDS: cloNIDine HCL 0.1 MG TABLET PO PRN ×2 (10:32→21:28)
[2019-04-19] MEDS: MAGNESIUM HYDROX 2400MG/30ML ORAL SUSPENSION 30 ML CUP PO PRN (10:32)
[2019-04-19] MEDS: THIAMINE HCL 100 MG TABLET (FP) PO SCH (21:28)
[2019-04-19] MEDS: hydrOXYzine PAMOATE 50 MG CAPSULE (FP) PO PRN (21:28)
[2019-04-19] MEDS: MELATONIN 5 MG TABLETS PO PRN (21:29)
[2019-04-20] MEDS ORDERED: METHADONE 120 MG, METHADONE 10 MG PO SCH (06:00)
[2019-04-20] MEDS ORDERED: METHADONE HCL 10 MG TABLET ONE (06:02)
[2019-04-20] MEDS ORDERED: METHADONE HCL 40 MG DISPERSABLE TABLET ONE (06:03)
[2019-04-20] MEDS: METHADONE 120 MG, METHADONE 10 MG PO SCH (06:20)
[2019-04-20] MEDS: NICOTINE POLACRILEX 4 MG GUM BUC PRN ×4 (06:23→21:32)
[2019-04-20] MEDS: EMTRICITABINE 200MG/TENOFOVIR 300MG PO SCH (10:02)
[2019-04-20] MEDS: NICOTINE 21 MG/24 HOURS TOPICAL PATCH TD SCH (10:03)
[2019-04-20] MEDS: PRENATAL VITAMINS W/ FOLIC ACID TABLET (FP) PO SCH (10:03)
[2019-04-20] MEDS: DOLUTEGRAVIR SODIUM 50 MG TABLET (NON-FORMULARY) PO SCH (10:03)
[2019-04-20] MEDS: MAGNESIUM HYDROX 2400MG/30ML ORAL SUSPENSION 30 ML CUP PO PRN (10:05)
[2019-04-20] MEDS: cloNIDine HCL 0.1 MG TABLET PO PRN ×2 (10:07→21:30)
[2019-04-20] MEDS: MELATONIN 5 MG TABLETS PO PRN (21:30)
[2019-04-20] MEDS: THIAMINE HCL 100 MG TABLET (FP) PO SCH (21:30)
[2019-04-20] MEDS: hydrOXYzine PAMOATE 50 MG CAPSULE (FP) PO PRN (21:31)
[2019-04-21] MEDS ORDERED: METHADONE HCL 10 MG TABLET ONE (04:20)
[2019-04-21] MEDS ORDERED: METHADONE HCL 40 MG DISPERSABLE TABLET ONE (04:21)
[2019-04-21] MEDS: METHADONE 120 MG, METHADONE 10 MG PO SCH (06:26)
[2019-04-21] MEDS: NICOTINE POLACRILEX 4 MG GUM BUC PRN ×5 (06:28→21:26)
[2019-04-21] MEDS: NICOTINE 21 MG/24 HOURS TOPICAL PATCH TD SCH (10:12)
[2019-04-21] MEDS: DOLUTEGRAVIR SODIUM 50 MG TABLET (NON-FORMULARY) PO SCH (10:12)
[2019-04-21] MEDS: EMTRICITABINE 200MG/TENOFOVIR 300MG PO SCH (10:12)
[2019-04-21] MEDS: PRENATAL VITAMINS W/ FOLIC ACID TABLET (FP) PO SCH (10:12)
[2019-04-21] MEDS: MAGNESIUM HYDROX 2400MG/30ML ORAL SUSPENSION 30 ML CUP PO PRN (13:04)
[2019-04-21] MEDS: IBUPROFEN 400 MG TABLET (FP) PO PRN (14:01)
[2019-04-21] MEDS: cloNIDine HCL 0.1 MG TABLET PO PRN (21:25)
[2019-04-21] MEDS: hydrOXYzine PAMOATE 50 MG CAPSULE (FP) PO PRN (21:25)
[2019-04-21] MEDS: MELATONIN 5 MG TABLETS PO PRN (21:25)
[2019-04-21] MEDS: THIAMINE HCL 100 MG TABLET (FP) PO SCH (21:25)
[2019-04-22] MEDS ORDERED: METHADONE HCL 10 MG TABLET ONE (06:10)
[2019-04-22] MEDS: NICOTINE POLACRILEX 4 MG GUM BUC PRN ×5 (06:11→21:43)
[2019-04-22] MEDS ORDERED: METHADONE HCL 40 MG DISPERSABLE TABLET ONE (06:11)
[2019-04-22] MEDS: METHADONE 120 MG, METHADONE 10 MG PO SCH (06:11)
[2019-04-22] MEDS: NICOTINE 21 MG/24 HOURS TOPICAL PATCH TD SCH (10:54)
[2019-04-22] MEDS: DOLUTEGRAVIR SODIUM 50 MG TABLET (NON-FORMULARY) PO SCH (10:54)
[2019-04-22] MEDS: PRENATAL VITAMINS W/ FOLIC ACID TABLET (FP) PO SCH (10:54)
[2019-04-22] MEDS: EMTRICITABINE 200MG/TENOFOVIR 300MG PO SCH (10:55)
[2019-04-22] MEDS: MAGNESIUM HYDROX 2400MG/30ML ORAL SUSPENSION 30 ML CUP PO PRN (10:57)
[2019-04-22] MEDS: THIAMINE HCL 100 MG TABLET (FP) PO SCH (21:40)
[2019-04-22] MEDS: MELATONIN 5 MG TABLETS PO PRN (21:41)
[2019-04-22] MEDS: cloNIDine HCL 0.1 MG TABLET PO PRN (21:41)
[2019-04-22] MEDS: hydrOXYzine PAMOATE 50 MG CAPSULE (FP) PO PRN (21:41)
[2019-04-22] MEDS: IBUPROFEN 400 MG TABLET (FP) PO PRN (21:42)
[2019-04-23] MEDS ORDERED: METHADONE HCL 10 MG TABLET ONE (05:31)
[2019-04-23] MEDS ORDERED: METHADONE HCL 40 MG DISPERSABLE TABLET ONE (05:32)
[2019-04-23] MEDS: NICOTINE POLACRILEX 4 MG GUM BUC PRN ×4 (06:22→21:24)
[2019-04-23] MEDS: METHADONE 120 MG, METHADONE 10 MG PO SCH (06:22)
[2019-04-23] MEDS: PRENATAL VITAMINS W/ FOLIC ACID TABLET (FP) PO SCH (10:35)
[2019-04-23] MEDS: NICOTINE 21 MG/24 HOURS TOPICAL PATCH TD SCH (10:35)
[2019-04-23] MEDS: MAGNESIUM HYDROX 2400MG/30ML ORAL SUSPENSION 30 ML CUP PO PRN ×2 (10:37→21:26)
[2019-04-23] MEDS: DOLUTEGRAVIR SODIUM 50 MG TABLET (NON-FORMULARY) PO SCH (10:38)
[2019-04-23] MEDS: EMTRICITABINE 200MG/TENOFOVIR 300MG PO SCH (10:38)
[2019-04-23] MEDS: IBUPROFEN 400 MG TABLET (FP) PO PRN (11:15)
[2019-04-23] MEDS: MELATONIN 5 MG TABLETS PO PRN (21:24)
[2019-04-23] MEDS: cloNIDine HCL 0.1 MG TABLET PO PRN (21:24)
[2019-04-23] MEDS: hydrOXYzine PAMOATE 50 MG CAPSULE (FP) PO PRN (21:24)
[2019-04-23] MEDS: THIAMINE HCL 100 MG TABLET (FP) PO SCH (21:57)
[2019-04-24] MEDS ORDERED: METHADONE HCL 40 MG DISPERSABLE TABLET ONE (04:59)
[2019-04-24] MEDS ORDERED: METHADONE HCL 10 MG TABLET ONE (04:59)
[2019-04-24] MEDS: METHADONE 120 MG, METHADONE 10 MG PO SCH (06:23)
[2019-04-24] MEDS: NICOTINE POLACRILEX 4 MG GUM BUC PRN ×4 (06:23→21:40)
[2019-04-24] MEDS: DOLUTEGRAVIR SODIUM 50 MG TABLET (NON-FORMULARY) PO SCH (10:58)
[2019-04-24] MEDS: PRENATAL VITAMINS W/ FOLIC ACID TABLET (FP) PO SCH (10:58)
[2019-04-24] MEDS: EMTRICITABINE 200MG/TENOFOVIR 300MG PO SCH (10:58)
[2019-04-24] MEDS: NICOTINE 21 MG/24 HOURS TOPICAL PATCH TD SCH (10:59)
[2019-04-24] MEDS: MAGNESIUM HYDROX 2400MG/30ML ORAL SUSPENSION 30 ML CUP PO PRN (11:00)
[2019-04-24] MEDS: THIAMINE HCL 100 MG TABLET (FP) PO SCH (21:39)
[2019-04-24] MEDS: hydrOXYzine PAMOATE 50 MG CAPSULE (FP) PO PRN (21:39)
[2019-04-24] MEDS: cloNIDine HCL 0.1 MG TABLET PO PRN (21:39)
[2019-04-24] MEDS: MELATONIN 5 MG TABLETS PO PRN (21:39)
[2019-04-25] MEDS ORDERED: METHADONE HCL 10 MG TABLET ONE (05:01)
[2019-04-25] MEDS ORDERED: METHADONE HCL 40 MG DISPERSABLE TABLET ONE (05:02)
[2019-04-25] MEDS: METHADONE 120 MG, METHADONE 10 MG PO SCH (06:04)
[2019-04-25] MEDS: NICOTINE POLACRILEX 4 MG GUM BUC PRN ×2 (06:05→09:03)
[2019-04-25 07:23] VITALS: BP 114/65; PULSE 55; TEMP 97.2
--- NOTE | 2019-04-25 09:34 | DS ---
[facility] Rehab Discharge Summary - [facility] Rehab Discharge Summary Admission Date: 04/12/19 Discharge Date: 04/25/19 - History Present History: Alcohol dependence, MMTP, Sedative dependence Additional Comments: Pt is a 33 y/o male with a hx of SHYAM on S.T.A.R.T-MMTP with Methadone 130 mg po daily admitted to rehab on 04/12/19 after detox completion on [facility] from 04/09 to 04/12/19. Pt has been referred to [facility] on [address], [address], [place] [address]. Ph: . Pt reports he has primary care in [place], [place] but noncompliant with routine visit for a long time due to consistency in sobriety. Pt instructed to follow up with primary care after discharge. Pertinent Past History: Seizures r/t withdrawal sx PTSD Mood Disorder - Discharge Physical Exam Vital Signs: Vital Signs Temperature 97.2 F L 04/25/19 07:22 Pulse Rate 55 L 04/25/19 07:22 Respiratory Rate 18 04/25/19 07:22 Blood Pressure 114/65 04/25/19 07:22 O2 Sat by Pulse Oximetry (%) alert o x 3 nad oob ambulating with steady gait cardiac:s1 s2,rrr lungs:cta,stephanie. abdomen:soft,+bs,nt,flat extremities/skin:no edema,full ROM/weight bearing;skin intact Pertinent Admission Physical Exam Findings: unremarkable - Treatment Discharge Condition: Discharge condition good Hospital Course: Rehabilitated safely and responded well CD aftercare referral accepted - Medication Discharge Medications: Ambulatory Orders Gabapentin 600 mg PO BID 04/12/19 Nicotine Polacrilex [Nicorelief -] 4 mg BUC Q2H PRN #30 gum 04/25/19 - Medication-Assisted Treatment (MAT) Medication-Assisted Treatment (MAT): No - Discharge Instructions Diet, activity, other medical instructions: Diet:Regular Activity: oob ad renata Other medical instructions:Follow up with CD aftercare as scheduled. Follow up with PCP for primary care management at [place] location 1-2 weeks after discharge. - Diagnosis (1) Sedative dependence Current Visit: Yes Status: Chronic (2) Methadone maintenance therapy patient Current Visit: Yes Status: Chronic (3) Nicotine dependence Current Visit: Yes Status: Chronic Qualifiers: Nicotine product type: cigarettes Substance use status: uncomplicated Qualified Code(s): F17.210 - Nicotine dependence, cigarettes, uncomplicated (4) History of seizure Current Visit: Yes Status: Suspected - Follow-up Referral Minutes to complete discharge: 20 - AMA Did Patient Leave Against Medical Advice: No Additional Comments: Pt reports he is on PrEP treatment with Tivicay and Truvada which was continued while inpatient at [facility] and has own Rx.
[2019-04-25] MEDS: PRENATAL VITAMINS W/ FOLIC ACID TABLET (FP) PO SCH (09:36)
[2019-04-25] MEDS: NICOTINE 21 MG/24 HOURS TOPICAL PATCH TD SCH (09:37)
[2019-04-25] MEDS: EMTRICITABINE 200MG/TENOFOVIR 300MG PO SCH (09:37)
[2019-04-25] MEDS: DOLUTEGRAVIR SODIUM 50 MG TABLET (NON-FORMULARY) PO SCH (09:37)
== END 2019-04-25 09:45 | disposition home or self-care (01) | DRG 772 ==
LOC: YASAS 15:12 → Y5N 15:13
PROVIDERS: ADMIT Neuromusculoskeletal Medicine & OMM; ATTEND Neuromusculoskeletal Medicine & OMM
PROC: HZ42ZZZ Group Counseling for Substance Abuse Treatment, Cognitive-Behavioral (ICD-10-PCS; principal; 2019-04-12)
DX: F10.20 Alcohol dependence, uncomplicated (principal); F11.20 Opioid dependence, uncomplicated; F13.20 Sedative, hypnotic or anxiolytic dependence, uncomplicated; F17.210 Nicotine dependence, cigarettes, uncomplicated; R56.9 Unspecified convulsions; Z88.0 Allergy status to penicillin; Z91.013 Allergy to seafood
CPT/HCPCS: J0735

== ENCOUNTER 2020-10-16 22:13 | Inpatient (IN) | payer OTHER ==
[2020-10-16 22:48] VITALS: BMI 29.4
[2020-10-16] MEDS ORDERED: MAGNESIUM HYDROX 2400MG/30ML ORAL SUSPENSION 30 ML CUP PO PRN (23:17)
[2020-10-16] MEDS ORDERED: IBUPROFEN 400 MG TABLET (FP) PO PRN (23:17)
[2020-10-16] MEDS ORDERED: MENTHOL/PHENOL 1 EACH UD MM PRN (23:17)
[2020-10-16] MEDS ORDERED: ACETAMINOPHEN 325 MG TABLET (FP) PO PRN ×2 (23:17)
[2020-10-16] MEDS ORDERED: MAGNESIUM CITRATE 300 ML BOTTLE PO PRN (23:17)
[2020-10-16] MEDS ORDERED: MAG HYDROX/AL HYDROX/SIMETH 30 ML UNIT-DOSE CUP PO PRN (23:17)
[2020-10-16] MEDS ORDERED: BISMUTH SUBSALICYLATE 524 MG/30 ML PO PRN (23:17)
[2020-10-16] MEDS ORDERED: ONDANSETRON *ODT* 4 MG TABLET SL PRN (23:17)
[2020-10-16] MEDS ORDERED: METHADONE HCL 10 MG TABLET (FOR DETOX USE ONLY) PO ONE (23:19)
[2020-10-17] MEDS: diazePAM 5 MG TABLET PO PRN ×2 (08:37→14:27)
[2020-10-17] MEDS ORDERED: METHADONE HCL 10 MG TABLET (FOR DETOX USE ONLY) PO ONE ×2 (09:12→21:27)
[2020-10-17] MEDS: diazePAM 5 MG TABLET PO SCH ×5 (09:14→23:35)
[2020-10-17] MEDS ORDERED: TRIMETHOBENZAMIDE HCL 300 MG CAPSULE PO PRN (09:15)
[2020-10-17] MEDS: PRENATAL VITAMINS W/ FOLIC ACID TABLET (FP) PO SCH (09:24)
[2020-10-17] MEDS ORDERED: METHADONE (DETOX) 20 MG, METHADONE (DETOX) 5 MG PO ONE (10:00)
[2020-10-17] MEDS: METHOCARBAMOL 500 MG TABLET PO PRN ×2 (14:27→23:36)
[2020-10-17] MEDS ORDERED: NICOTINE POLACRILEX 4 MG GUM BUC PRN (21:24)
[2020-10-17] MEDS ORDERED: MELATONIN 5 MG TABLETS PO SCH (22:00)
[2020-10-17] MEDS ORDERED: THIAMINE HCL 100 MG TABLET (FP) PO SCH (22:00)
[2020-10-17 23:16] VITALS: TEMP 97.1
[2020-10-17] MEDS: cloNIDine HCL 0.1 MG TABLET PO PRN (23:36)
[2020-10-18] MEDS: diazePAM 5 MG TABLET PO PRN ×2 (04:31→09:32)
[2020-10-18] MEDS ORDERED: diazePAM 5 MG TABLET PO SCH (06:00)
[2020-10-18 07:28] VITALS: BP 98/50; PULSE 51
[2020-10-18] MEDS ORDERED: METHADONE HCL 5 MG TABLET (FOR DETOX USE ONLY) ONE (09:10)
[2020-10-18] MEDS ORDERED: METHADONE HCL 10 MG TABLET (FOR DETOX USE ONLY) ONE (09:11)
[2020-10-18] MEDS: PRENATAL VITAMINS W/ FOLIC ACID TABLET (FP) PO SCH (09:25)
[2020-10-18] MEDS: METHOCARBAMOL 500 MG TABLET PO PRN (09:32)
[2020-10-18] MEDS: cloNIDine HCL 0.1 MG TABLET PO PRN (09:32)
[2020-10-18] MEDS ORDERED: METHADONE HCL 10 MG TABLET (FOR DETOX USE ONLY) PO ONE (10:00)
[2020-10-18] MEDS ORDERED: METHADONE (DETOX) 20 MG, METHADONE (DETOX) 5 MG PO ONE (10:00)
[2020-10-19] MEDS ORDERED: diazePAM 5 MG TABLET PO SCH (06:00)
[2020-10-19] MEDS ORDERED: METHADONE HCL 10 MG TABLET (FOR DETOX USE ONLY) PO ONE (10:00)
[2020-10-19] MEDS ORDERED: METHADONE (DETOX) 10 MG, METHADONE (DETOX) 5 MG PO ONE (10:00)
[2020-10-20] MEDS ORDERED: diazePAM 5 MG TABLET PO ONE (06:00)
[2020-10-20] MEDS ORDERED: METHADONE HCL 10 MG TABLET (FOR DETOX USE ONLY) PO ONE ×2 (10:00)
[2020-10-21] MEDS ORDERED: METHADONE HCL 5 MG TABLET (FOR DETOX USE ONLY) PO ONE ×2 (06:00)
== END 2020-10-18 11:30 | disposition left against medical advice (07) | DRG 770 ==
LOC: YASAS 22:13 → Y6N 10-17 01:19
PROVIDERS: ADMIT Allergy & Immunology; ATTEND Allergy & Immunology
PROC: HZ2ZZZZ Detoxification Services for Substance Abuse Treatment (ICD-10-PCS; principal; 2020-10-17)
DX: F11.23 Opioid dependence with withdrawal (principal); F13.230 Sedative, hypnotic or anxiolytic dependence with withdrawal, uncomplicated; F14.20 Cocaine dependence, uncomplicated; M54.5 Low back pain; G89.29 Other chronic pain; G40.89 Other seizures; I25.2 Old myocardial infarction; Z87.891 Personal history of nicotine dependence; Z88.0 Allergy status to penicillin; Z91.013 Allergy to seafood
CPT/HCPCS: 93005; 93010; C9803; J0735; U0003; U0005

== ENCOUNTER 2021-02-24 21:39 | Inpatient (IN) | payer OTHER ==
[2021-02-24] MEDS ORDERED: ACETAMINOPHEN 325 MG TABLET (FP) PO PRN ×2 (23:01)
[2021-02-24] MEDS ORDERED: BISMUTH SUBSALICYLATE 524 MG/30 ML PO PRN (23:01)
[2021-02-24] MEDS ORDERED: MAG HYDROX/AL HYDROX/SIMETH 30 ML UNIT-DOSE CUP PO PRN (23:01)
[2021-02-24] MEDS ORDERED: MAGNESIUM CITRATE 300 ML BOTTLE PO PRN (23:01)
[2021-02-24] MEDS ORDERED: IBUPROFEN 400 MG TABLET (FP) PO PRN (23:01)
[2021-02-24] MEDS ORDERED: MAGNESIUM HYDROX 2400MG/30ML ORAL SUSPENSION 30 ML CUP PO PRN (23:01)
[2021-02-24] MEDS ORDERED: MENTHOL/PHENOL 1 EACH UD MM PRN (23:01)
[2021-02-24] MEDS ORDERED: METHOCARBAMOL 500 MG TABLET PO PRN (23:01)
[2021-02-24] MEDS ORDERED: ONDANSETRON *ODT* 4 MG TABLET SL PRN (23:01)
[2021-02-25] MEDS: diazePAM 5 MG TABLET PO SCH ×5 (01:00→22:35)
[2021-02-25 01:51] VITALS: BMI 30.1
[2021-02-25] MEDS ORDERED: diazePAM 5 MG TABLET ONE ×2 (02:30→06:16)
[2021-02-25] MEDS ORDERED: methaDONE HCL 10 MG TABLET PO SCH (09:15)
[2021-02-25 10:26] LABS: HEMATOCRIT 40.1 % (35.4-49); HEMOGLOBIN 13.7 GM/dL (11.7-16.9); MCH 30.9 pg (25.7-33.7); MCHC 34.1 g/dl (32.0-35.9); MEAN CELL VOLUME 90.8 fl (80-96); MEAN PLT VOLUME 9.7 fl (7.5-11.1); PLATELET COUNT 136 10^3/uL (134-434); RBC 4.41 M/mm3 (4.00-5.60); RDW 12.4 % (11.9-15.9); WHITE BLOOD COUNT 7.1 K/mm3 (4.0-10.0)
[2021-02-25 11:19] LABS: CALCIUM 8.9 mg/dL (8.5-10.1)
[2021-02-25 11:20] LABS: BLOOD UREA NITROGEN 30.3 mg/dL (7-18)
[2021-02-25 11:23] LABS: CREATININE 1.1 mg/dL (0.55-1.3)
[2021-02-25 11:24] LABS: TOT PROT 7.4 g/dl (6.4-8.2)
[2021-02-25 11:27] LABS: BILIRUBIN,TOTAL 0.5 mg/dL (0.2-1)
[2021-02-25 12:05] LABS: HIV INTERPRETATION NEGATIVE (NEGATIVE)
[2021-02-25] MEDS ORDERED: methaDONE HCL 10 MG TABLET ONE (13:06)
[2021-02-25] MEDS ORDERED: methaDONE HCL 40 MG DISPERSABLE TABLET ONE (13:06)
[2021-02-25] MEDS: PRENATAL VITAMINS W/ FOLIC ACID TABLET (FP) PO SCH (13:08)
[2021-02-25] MEDS: GABAPENTIN 300 MG CAPSULE PO SCH ×2 (13:11→22:36)
[2021-02-25] MEDS: NICOTINE POLACRILEX 2 MG GUM BUC PRN ×2 (13:13→15:40)
[2021-02-25] MEDS: diazePAM 5 MG TABLET PO PRN ×2 (15:38→19:13)
[2021-02-25] MEDS: NICOTINE POLACRILEX 4 MG GUM BUC PRN ×2 (17:28→22:37)
[2021-02-25] MEDS: THIAMINE HCL 100 MG TABLET (FP) PO SCH (22:34)
[2021-02-25] MEDS: MELATONIN 5 MG TABLETS PO SCH (22:34)
[2021-02-25] MEDS: QUEtiapine FUMARATE 100 MG TABLET (FP) PO SCH (22:35)
[2021-02-26] MEDS: diazePAM 5 MG TABLET PO PRN ×5 (00:29→21:24)
[2021-02-26] MEDS ORDERED: methaDONE HCL 10 MG TABLET ONE (04:37)
[2021-02-26] MEDS ORDERED: methaDONE HCL 40 MG DISPERSABLE TABLET ONE (04:38)
[2021-02-26] MEDS: diazePAM 5 MG TABLET PO SCH ×3 (05:17→23:28)
[2021-02-26] MEDS: NICOTINE POLACRILEX 4 MG GUM BUC PRN ×6 (05:21→23:30)
[2021-02-26] MEDS: PRENATAL VITAMINS W/ FOLIC ACID TABLET (FP) PO SCH (10:20)
[2021-02-26] MEDS: GABAPENTIN 300 MG CAPSULE PO SCH ×2 (10:20→23:26)
[2021-02-26] MEDS: SERTRALINE HCL 50 MG TABLET (FP) PO SCH (10:21)
[2021-02-26] MEDS: NICOTINE 10 MG CARTRIDGE (INHALER) IH PRN (23:25)
[2021-02-26] MEDS: QUEtiapine FUMARATE 100 MG TABLET (FP) PO SCH (23:26)
[2021-02-26] MEDS: THIAMINE HCL 100 MG TABLET (FP) PO SCH (23:27)
[2021-02-26] MEDS: MELATONIN 5 MG TABLETS PO SCH (23:27)
[2021-02-26] MEDS: hydrOXYzine PAMOATE 25 MG CAPSULE (FP) PO PRN (23:29)
[2021-02-27] MEDS ORDERED: methaDONE HCL 40 MG DISPERSABLE TABLET ONE (04:28)
[2021-02-27] MEDS ORDERED: methaDONE HCL 10 MG TABLET ONE (04:28)
[2021-02-27] MEDS: NICOTINE POLACRILEX 4 MG GUM BUC PRN (05:22)
[2021-02-27] MEDS: NICOTINE 10 MG CARTRIDGE (INHALER) IH PRN (05:22)
[2021-02-27] MEDS ORDERED: diazePAM 5 MG TABLET PO SCH (06:00)
[2021-02-27] MEDS: hydrOXYzine PAMOATE 25 MG CAPSULE (FP) PO PRN (06:53)
[2021-02-27] MEDS: diazePAM 5 MG TABLET PO PRN (06:53)
[2021-02-27 09:47] VITALS: BP 139/82; PULSE 77; TEMP 97.7
[2021-02-27] MEDS: SERTRALINE HCL 50 MG TABLET (FP) PO SCH (11:52)
[2021-02-27] MEDS: GABAPENTIN 300 MG CAPSULE PO SCH (11:52)
[2021-02-27] MEDS: PRENATAL VITAMINS W/ FOLIC ACID TABLET (FP) PO SCH (11:52)
[2021-02-28] MEDS ORDERED: diazePAM 5 MG TABLET PO ONE (06:00)
== END 2021-02-27 09:44 | disposition home or self-care (01) | DRG 773 ==
LOC: YASAS 21:39 → Y3N 02-25 12:22
PROVIDERS: ADMIT Allergy & Immunology; ATTEND Allergy & Immunology
PROC: HZ2ZZZZ Detoxification Services for Substance Abuse Treatment (ICD-10-PCS; principal; 2021-02-25)
DX: F10.230 Alcohol dependence with withdrawal, uncomplicated (principal); F11.20 Opioid dependence, uncomplicated; F13.20 Sedative, hypnotic or anxiolytic dependence, uncomplicated; F14.20 Cocaine dependence, uncomplicated; F17.210 Nicotine dependence, cigarettes, uncomplicated; F19.24 Other psychoactive substance dependence with psychoactive substance-induced mood disorder; F32.9 Major depressive disorder, single episode, unspecified; F43.10 Post-traumatic stress disorder, unspecified; G47.00 Insomnia, unspecified; I25.2 Old myocardial infarction; Z87.898 Personal history of other specified conditions; Z86.69 Personal history of other diseases of the nervous system and sense organs; Z88.0 Allergy status to penicillin; Z91.018 Allergy to other foods
CPT/HCPCS: 36415; 80053; 85027; 86780; 87389; C9803; H0004-GT; U0003; U0005

== ENCOUNTER 2024-03-04 20:15 | Emergency (ER) | payer OTHER ==
[2024-03-04 20:23] VITALS: BP 143/92; PULSE 102; RESP 20; TEMP 99; BMI 29.4
[2024-03-04] MEDS ORDERED: clonazePAM 0.5 MG TABLET ONE (20:59)
[2024-03-04] MEDS: clonazePAM 0.5 MG TABLET PO ONE (21:05)
== END 2024-03-04 21:50 | disposition left against medical advice (07) ==
LOC: JER 20:15
DX: R06.02 Shortness of breath (principal); R07.9 Chest pain, unspecified; R42 Dizziness and giddiness
CPT/HCPCS: 71046-TC-FY; 93005; 93010; 99284-25

== ENCOUNTER 2024-05-22 09:15 | Emergency (ER) | payer OTHER ==
[2024-05-22 09:36] VITALS: BP 131/93; PULSE 89; RESP 20; TEMP 98.3; BMI 31.4
[2024-05-22] MEDS ORDERED: diazePAM CARPU-JECT 10 MG/2 ML DISP.SYRIN ONE ×2 (10:21→13:33)
[2024-05-22] MEDS ORDERED: ACETAMINOPHEN INJECTION 100 ML ONE (10:21)
[2024-05-22] MEDS: diazePAM CARPU-JECT 10 MG/2 ML DISP.SYRIN IVPUSH ONE ×2 (10:53→13:42)
[2024-05-22] MEDS: SODIUM CHLORIDE 1,000 ML IV STA (13:41)
[2024-05-22] MEDS: ACETAMINOPHEN 1000 MG/100 ML BAG IVPB ONE (13:41)
[2024-05-22 13:42] LABS: BASO % 0.4 % (0-2.0); EOS % 0.8 % (0-4.5); HEMATOCRIT 45.2 % (35.4-49); HEMOGLOBIN 15.1 GM/dL (11.7-16.9); LYMPH % 33.8 % (8-40); MCH 29.8 pg (25.7-33.7); MCHC 33.5 g/dl (32.0-35.9); MEAN CELL VOLUME 89.1 fl (80-96); MEAN PLT VOLUME 9.3 fl (7.5-11.1); MONO % 8.3 % (3.8-10.2); NEUT % 56.7 % (42.8-82.8); PLATELET COUNT 203 10^3/uL (134-434); RBC 5.08 M/mm3 (4.00-5.60); WHITE BLOOD COUNT 7.9 K/mm3 (4.0-10.0)
[2024-05-22 14:02] LABS: CHLORIDE 103 mmol/L (98-107); SODIUM 139 mmol/L (136-145)
[2024-05-22 14:04] LABS: ALBUMIN 4.3 g/dl (3.4-5.0); ANION GAP 6 mmol/L (4-13); BLOOD UREA NITROGEN 25.2 mg/dL (7-18); CALCIUM 9.4 mg/dL (8.5-10.1); CO2 30 mmol/L (21-32); GLUCOSE,RANDOM 88 mg/dL (74-106); MAGNESIUM 2.2 mg/dL (1.8-2.4)
[2024-05-22 14:07] LABS: CREATININE 1.2 mg/dL (0.55-1.3); SGOT/AST 26 U/L (15-37); SGPT/ALT 31 U/L (13-61)
[2024-05-22 14:08] LABS: BILIRUBIN,TOTAL 0.3 mg/dL (0.2-1)
[2024-05-22 14:10] LABS: ALK PHOS 75 U/L (45-117)
[2024-05-22 15:45] LABS: HIV INTERPRETATION NEGATIVE (NEGATIVE)
== END 2024-05-22 14:30 | disposition left against medical advice (07) ==
LOC: JER 09:15
PROC: 3E033NZ Introduction of Analgesics, Hypnotics, Sedatives into Peripheral Vein, Percutaneous Approach (ICD-10-PCS; principal; 2024-05-22)
PROC: 3E033GC Introduction of Other Therapeutic Substance into Peripheral Vein, Percutaneous Approach (ICD-10-PCS; 2024-05-22)
PROC: 3E033GC Introduction of Other Therapeutic Substance into Peripheral Vein, Percutaneous Approach (ICD-10-PCS; 2024-05-22)
PROC: 3E0337Z Introduction of Electrolytic and Water Balance Substance into Peripheral Vein, Percutaneous Approach (ICD-10-PCS; 2024-05-22)
DX: G40.909 Epilepsy, unspecified, not intractable, without status epilepticus (principal)
CPT/HCPCS: 36415; 70450-TC; 71045-TC-FY; 80053; 80307; 83605; 83690; 83735; 84484; 85025; 86803; 87389; 93005; 93010; 99285-25; J0131

== ENCOUNTER 2024-06-11 03:57 | Emergency (ER) | payer OTHER ==
[2024-06-11 04:02] VITALS: BP 135/88; PULSE 78; RESP 16; TEMP 97.3; BMI 32.1
[2024-06-11] MEDS ORDERED: diazePAM CARPU-JECT 10 MG/2 ML DISP.SYRIN ONE (04:27)
[2024-06-11] MEDS: diazePAM CARPU-JECT 10 MG/2 ML DISP.SYRIN IVPUSH ONE (05:48)
[2024-06-11] MEDS: LACTATED RINGERS SOLUTION 1000 ML INFUS.BAG IV ONE (05:48)
[2024-06-11] MEDS ORDERED: FAMOTIDINE 20 MG/50 ML IVPB 20 MG/50 ML MG IVPB ONE (05:51)
[2024-06-11] MEDS ORDERED: ACETAMINOPHEN INJECTION 100 ML ONE (05:51)
[2024-06-11] MEDS ORDERED: ONDANSETRON 4 MG/2 ML VIAL ONE (05:51)
[2024-06-11] MEDS: FAMOTIDINE 20 MG/50 ML IVPB 20 MG/50 ML MG IVPB ONE (05:58)
[2024-06-11] MEDS: ONDANSETRON 4 MG/2 ML VIAL IVPUSH ONE (05:58)
[2024-06-11] MEDS: ACETAMINOPHEN 1000 MG/100 ML BAG IVPB ONE (05:59)
[2024-06-11 06:45] LABS: CHLORIDE 102 mmol/L (98-107); POTASSIUM 3.7 mmol/L (3.5-5.1); SODIUM 140 mmol/L (136-145)
[2024-06-11 06:47] LABS: ALBUMIN 4.4 g/dl (3.4-5.0); ANION GAP 6 mmol/L (4-13); BLOOD UREA NITROGEN 18.1 mg/dL (7-18); CALCIUM 9.8 mg/dL (8.5-10.1); CO2 32 mmol/L (21-32); GLUCOSE,RANDOM 75 mg/dL (74-106)
[2024-06-11 06:50] LABS: CREATININE 1.1 mg/dL (0.55-1.3); SGOT/AST 26 U/L (15-37); SGPT/ALT 31 U/L (13-61)
[2024-06-11 06:52] LABS: BILIRUBIN,TOTAL 0.3 mg/dL (0.2-1); TOT PROT 8.3 g/dl (6.4-8.2)
[2024-06-11 06:53] LABS: ALK PHOS 72 U/L (45-117); BASO % 0.7 % (0-2.0); EOS % 2.3 % (0-4.5); HEMATOCRIT 47.1 % (35.4-49); HEMOGLOBIN 15.6 GM/dL (11.7-16.9); LYMPH % 42.7 % (8-40); MCH 29.8 pg (25.7-33.7); MEAN CELL VOLUME 90.2 fl (80-96); MEAN PLT VOLUME 9.9 fl (7.5-11.1); MONO % 7.1 % (3.8-10.2); NEUT % 47.2 % (42.8-82.8); PLATELET COUNT 216 10^3/uL (134-434); RBC 5.22 M/mm3 (4.00-5.60); RDW 11.9 % (11.9-15.9); WHITE BLOOD COUNT 5.7 K/mm3 (4.0-10.0)
[2024-06-11 11:53] LABS: HIV INTERPRETATION NEGATIVE (NEGATIVE)
== END 2024-06-11 06:59 | disposition left against medical advice (07) ==
LOC: JER 03:57
PROC: 3E033GC Introduction of Other Therapeutic Substance into Peripheral Vein, Percutaneous Approach (ICD-10-PCS; principal; 2024-06-11)
PROC: 3E033GC Introduction of Other Therapeutic Substance into Peripheral Vein, Percutaneous Approach (ICD-10-PCS; 2024-06-11)
PROC: 3E033GC Introduction of Other Therapeutic Substance into Peripheral Vein, Percutaneous Approach (ICD-10-PCS; 2024-06-11)
PROC: 3E033GC Introduction of Other Therapeutic Substance into Peripheral Vein, Percutaneous Approach (ICD-10-PCS; 2024-06-11)
DX: F10.230 Alcohol dependence with withdrawal, uncomplicated (principal); R51.9 Headache, unspecified
CPT/HCPCS: 36415; 80053; 80307; 83690; 83735; 85025; 86803; 87389; 96365; 96375; 99284-25; J0131